=== PATIENT | male | born 1965 | race African-American/Black ===

== ENCOUNTER 2016-08-15 04:57 | Inpatient (IN) | payer OTHER ==
--- NOTE | 2016-08-15 05:13 | HP ---
CIWA Score - CIWA Score Nausea/Vomitin Muscle Tremors: 4-Moderate,w/Arms Extend Anxiety: 4-Mod. Anxious/Guarded Agitation: 4-Moderately Restless Paroxysmal Sweats: 1-Minimal Palms Moist Orientation: 0-Oriented Tacttile Disturbances: 0-None Auditory Disturbances: 0-None Visual Disturbances: 0-None Headache: 3-Moderate CIWA-Ar Total Score: 18 Admission ROS [facility] - HPI Chief Complaint: C/O WITHDRAWAL SX'S. SEEKING DETOX TXMENT. Allergies/Adverse Reactions: Allergies Allergy/AdvReac Type Severity Reaction Status Date / Time pork derived (porcine) Allergy Intermediate Itching Verified 08/15/16 05:11 No Known Drug Allergies Allergy Verified 08/02/15 09:48 PASTA Allergy Intermediate Hives Uncoded 08/15/16 05:11 red sauce Allergy Uncoded 08/15/16 05:11 History of Present Illness: 51 Y.O. MALE WITH ALCOHOLISM KNOWN TO [facility] ADMITTED FOR DETOX TXMENT. CLIENT REPORTS A CLEAN TOIME OF 8 YEARS. INTERESTED IN REHAB TXMENT POST DETOX. Exam Limitations: No Limitations - Ebola screening Have you traveled outside of the country in the last 21 days: No Have you had contact with anyone from an Ebola affected area: No Have you been sick,other than usual withdrawal symptoms: No Do you have a fever: No - Review of Systems Constitutional: Chills, Loss of Appetite, Malaise, Night Sweats, Unexplained wgt Loss EENT: reports: Dental Problems (MISSING TEETH) Respiratory: reports: No Symptoms reported Cardiac: reports: No Symptoms Reported GI: reports: Diarrhea, Nausea, Poor Appetite, Poor Fluid Intake : reports: No Symptoms Reported Musculoskeletal: reports: Joint Pain Integumentary: reports: No Symptoms Reported Neuro: reports: No Symptoms reported Hematology: reports: Other (DM) Psychiatric: reports: Anxious Other Systems: Reviewed and Negative Patient History - Patient Medical History Hx Anemia: No Hx Asthma: Yes Hx Chronic Obstructive Pulmonary Disease (COPD): No Hx Cancer: No Hx Cardiac Disorders: No Hx Congestive Heart Failure: No Hx Hypertension: Yes Hx Hypercholesterolemia: Yes Hx Pacemaker: No HX Cerebrovascular Accident: No Hx Seizures: Yes (etoh related 2012) Hx Dementia: No Hx Diabetes: Yes Hx Gastrointestinal Disorders: No Hx Liver Disease: No Hx Genitourinary Disorders: No Hx Sexually Transmitted Disorders: No Hx Renal Disease (ESRD): No Hx Thyroid Disease: No Hx Human Immunodeficiency Virus (HIV): No Hx Hepatitis C: No Hx Depression: Yes Hx Suicide Attempt: Yes (2007 - hospitalized [facility]) Hx Bipolar Disorder: No Hx Schizophrenia: Yes Other Medical History: OSTEOARTHRITIS - Patient Surgical History Past Surgical History: No Hx Neurologic Surgery: No Hx Cataract Extraction: No Hx Cardiac Surgery: No Hx Lung Surgery: No Hx Breast Surgery: No Hx Breast Biopsy: No Hx Abdominal Surgery: No Hx Appendectomy: No Hx Cholecystectomy: No Hx Genitourinary Surgery: No Hx Section: No Hx Orthopedic Surgery: No Anesthesia Reaction: No - PPD History Previous Implant?: Yes Documented Results: Negative w/proof Implanted On Prior [facility] Admission?: Yes Date: 05/29/15 Results: 0 mm PPD to be Administered?: Yes - Smoking Cessation Smoking history: Current every day smoker Have you smoked in the past 12 months: Yes Aproximately how many cigarettes per day: 10 Cigars Per Day: 0 Hx Chewing Tobacco Use: No Initiated information on smoking cessation: Yes 'Breaking Loose' booklet given: 08/15/16 - Substance & Tx. History Hx Alcohol Use: Yes Hx Substance Use: No Substance Use Type: Alcohol Hx Substance Use Treatment: Yes ([facility]) - Substances Abused BACARDI/ E&J Route: Oral Frequency: Daily Amount used: 2 PINTS/ 2 PINTS Age of first use: 11 Date of Last Use: 08/14/16 Family Disease History - Family Disease History Family Disease History: Diabetes: Father (DRUG,ALCOHOL,HTN), Mother (HEART SURGERY), Heart Disease: Father, Mother, Other: Father Admission Physical Exam [facility] - Physical General Appearance: Yes: Appropriately Dressed, Tremorous, Anxious HEENTM: Yes: EOMI, Normocephalic, BELLE, Pharynx Normal, Other (MISSING TEETH) Respiratory: Yes: Chest Non-Tender, Lungs Clear, Normal Breath Sounds, No Respiratory Distress, No Accessory Muscle Use Neck: Yes: No masses,lesions,Nodules, Supple, Trachea in good position Breast: Yes: Breast Exam Deferred Cardiology: Yes: Regular Rhythm, Regular Rate, S1, S2 Abdominal: Yes: Normal Bowel Sounds, Non Tender, Soft Genitourinary: Yes: Within Normal Limits Back: Yes: Normal Inspection Musculoskeletal: Yes: full range of Motion, Gait Steady Extremities: Yes: Normal Capillary Refill, Normal Range of Motion, Non-Tender, Tremors 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: Alert, Motor Strength 5/5 Integumentary: Yes: Normal Color, Warm, Moist Lymphatic: Yes: Within Normal Limits - Diagnostic (1) Alcohol dependence with uncomplicated withdrawal Current Visit: Yes Status: Chronic (2) Asthma Current Visit: Yes Status: Chronic Qualifiers: Asthma severity: mild intermittent Asthma complication type: uncomplicated Qualified Code(s): J45.20 - Mild intermittent asthma, uncomplicated (3) DM Diabetes mellitus type 2 Current Visit: Yes Status: Chronic (4) Essential (primary) hypertension Current Visit: Yes Status: Chronic (5) Nicotine dependence Current Visit: Yes Status: Chronic Qualifiers: Nicotine product type: cigarettes Substance use status: uncomplicated Qualified Code(s): F17.210 - Nicotine dependence, cigarettes, uncomplicated (6) OA (osteoarthritis) Current Visit: Yes Status: Chronic Qualifiers: Osteoarthritis location: spine Spinal region: lumbar Spinal osteoarthritis complication: without myelopathy or radiculopathy Qualified Code(s): M47.816 - Spondylosis without myelopathy or radiculopathy, lumbar region (7) Type 2 diabetes mellitus Current Visit: Yes Status: Chronic Qualifiers: Diabetes mellitus complication status: without complication Qualified Code(s): E11.9 - Type 2 diabetes mellitus without complications (8) HLD (hyperlipidemia) Current Visit: Yes Status: Chronic Qualifiers: Hyperlipidemia type: unspecified Qualified Code(s): E78.5 - Hyperlipidemia, unspecified Cleared for Admission [facility] - Detox or Rehab [facility] Level of Care: Medically Managed Detox Regimen/Protocol: Librium S Breath Alcohol Content Breath Alcohol Content: 0.123 Vital Signs - Vital Signs Vital Signs Refused: No Temperature: 96.4 F Temperature Source: Oral Pulse Rate: 93 Respiratory Rate: 18 Blood Pressure: 120/66 BP Location: Left Arm - Height Height: 5 ft 11 in - Weight Weight: 93.894 kg Weight Measurement Method: Standing Scale Body Mass Index (BMI): 28.8 - Bowel Function Bowel Movement: No Urine Drug Screen - Test Device Lot Number: [id number] Expiration Date: 09/17/17 - Control Is Test Valid: Yes - Results Drug Screen Negative: No Urine Drug Screen Results: BZO-Benzodiazepines (DENIES USE AND RECENT TXMENT)
[2016-08-15 05:30] VITALS: TEMP 96.4
[2016-08-15 05:32] VITALS: BMI 28.8
[2016-08-15] MEDS ORDERED: MENTHOL/PHENOL 1 EACH UD MM PRN (05:32)
[2016-08-15] MEDS ORDERED: P-EPHED 60MG/TRIPROLIDI 2.5MG TABLET PO PRN (05:32)
[2016-08-15] MEDS ORDERED: diphenhydrAMINE HCL 50 MG CAPSULE PO PRN (05:32)
[2016-08-15] MEDS ORDERED: NICOTINE POLACRILEX 2 MG GUM BC PRN (05:32)
[2016-08-15] MEDS ORDERED: hydrOXYzine PAMOATE 50 MG CAPSULE (FP) PO PRN (05:32)
[2016-08-15] MEDS ORDERED: LOPERAMIDE HCL 2 MG CAPSULE PO PRN (05:32)
[2016-08-15] MEDS ORDERED: IBUPROFEN 400 MG TABLET (FP) PO PRN (05:32)
[2016-08-15] MEDS ORDERED: MAG HYDROX/AL HYDROX/SIMETH 30 ML UNIT-DOSE CUP PO PRN (05:32)
[2016-08-15] MEDS ORDERED: MAGNESIUM CITRATE 300 ML BOTTLE PO PRN (05:32)
[2016-08-15] MEDS ORDERED: ACETAMINOPHEN 325 MG TABLET (FP) PO PRN (05:32)
[2016-08-15] MEDS ORDERED: guaiFENesin/D-METHORPHAN HB 10 ML UNIT-DOSE CUPS PO PRN (05:32)
[2016-08-15] MEDS ORDERED: MAGNESIUM HYDROX 2400MG/30ML ORAL SUSPENSION 30 ML CUP PO PRN (05:32)
[2016-08-15] MEDS ORDERED: chlordiazePOXIDE HCL 25 MG CAPSULE PO PRN (05:32)
[2016-08-15] MEDS ORDERED: ALBUTEROL SO4 6.7 GM HFA INHALER IH PRN (05:34)
[2016-08-15] MEDS ORDERED: ALBUTEROL SO4 2.5/IPRATROPIUM 0.5 INH SOL 3 ML VIAL.NEB. NEB PRN (05:36)
[2016-08-15] MEDS: chlordiazePOXIDE HCL 25 MG CAPSULE PO SCH ×2 (06:47→10:53)
[2016-08-15 07:06] VITALS: BP 130/85; PULSE 90
[2016-08-15] MEDS ORDERED: metFORMIN HCL 500 MG TABLET (FP) PO SCH (08:00)
[2016-08-15] MEDS ORDERED: NICOTINE 14 MG/24 HOURS TOPICAL PATCH TD SCH (10:00)
[2016-08-15] MEDS ORDERED: PRENATAL VITAMINS W/ FOLIC ACID TABLET (FP) PO SCH (10:00)
[2016-08-15 10:22] LABS: MCH 30.9 pg (25.7-33.7); MCHC 33.6 g/dl (32.0-35.9); MEAN CELL VOLUME 92.1 fl (80-96); MEAN PLT VOLUME 7.4 fl (7.5-11.1); PLATELET COUNT 254 K/MM3 (134-434); RDW 15.2 % (11.9-15.9); WHITE BLOOD COUNT 4.2 K/mm3 (4.0-10.0)
[2016-08-15 10:34] LABS: CALCIUM 8.8 mg/dL (8.5-10.1)
[2016-08-15 10:40] LABS: ALBUMIN 3.7 g/dl (3.4-5.0); ALK PHOS 60 U/L (45-117); ANION GAP 11 (8-16); BILIRUBIN,TOTAL 0.7 mg/dL (0.2-1.0); CO2 26 mmol/L (21-32); CREATININE 1.1 mg/dL (0.7-1.3); GLUCOSE,RANDOM 94 mg/dL (74-106); SGOT/AST 23 U/L (15-37); SGPT/ALT 31 U/L (12-78); TOT PROT 6.8 g/dl (6.4-8.2)
[2016-08-15 14:48] LABS: HIV 1 & 2 AB NEGATIVE; HIV 1 AGp24 NEGATIVE
--- NOTE | 2016-08-15 15:40 | PN ---
S CIWA - CIWA Score Nausea/Vomitin Muscle Tremors: 4-Moderate,w/Arms Extend Anxiety: 4-Mod. Anxious/Guarded Agitation: 4-Moderately Restless Paroxysmal Sweats: No Perspiration Orientation: 0-Oriented Tacttile Disturbances: 1-Very Mild Itch/Numbness Auditory Disturbances: 0-None Visual Disturbances: 0-None Headache: 2-Mild CIWA-Ar Total Score: 18 BHS Progress Note (SOAP) Subjective: Anxious, sweating, tremor, interrupted sleep, stomach ache, diarrhea, chills Objective: 08/15/16 15:38 Last Vital Signs Temp Pulse Resp BP Pulse Ox 96.4 F L 90 18 130/85 08/15/16 07:06 08/15/16 07:06 08/15/16 07:06 08/15/16 07:06 Laboratory Tests 08/15/16 08/15/16 08/15/16 05:45 08:00 08:00 WBC 4.2 D RBC 4.20 Hgb 13.0 Hct 38.6 MCV 92.1 MCHC 33.6 RDW 15.2 Plt Count 254 MPV 7.4 L D Sodium 145 Potassium 3.7 Chloride 108 H Carbon Dioxide 26 Anion Gap 11 BUN 17 Creatinine 1.1 D Creat Clearance w eGFR > 60 POC Glucometer 111 Random Glucose 94 Calcium 8.8 Total Bilirubin 0.7 D AST 23 ALT 31 Alkaline Phosphatase 60 Total Protein 6.8 Albumin 3.7 RPR Titer HIV 1&2 Antibody Screen HIV P24 Antigen 08/15/16 08/15/16 08:00 08:00 WBC RBC Hgb Hct MCV MCHC RDW Plt Count MPV Sodium Potassium Chloride Carbon Dioxide Anion Gap BUN Creatinine Creat Clearance w eGFR POC Glucometer Random Glucose Calcium Total Bilirubin AST ALT Alkaline Phosphatase Total Protein Albumin RPR Titer Nonreactive HIV 1&2 Antibody Screen Negative HIV P24 Antigen Negative Labs noted Assessment: 08/15/16 15:39 Labs noted Plan: Continue detox
[2016-08-15 17:39] LABS: URINE APPEARANCE CLEAR; URINE BILIRUBIN NEGATIVE (NEGATIVE); URINE BLOOD NEGATIVE (NEGATIVE); URINE COLOR LTYELLOW; URINE GLUCOSE (UA) NEGATIVE (NEGATIVE); URINE KETONE NEGATIVE (NEGATIVE); URINE LEUK ESTERASE NEGATIVE (NEGATIVE); URINE NITRITE NEGATIVE (NEGATIVE); URINE PROTEIN NEGATIVE (NEGATIVE); URINE UROBILINOGEN NEGATIVE E.U./dl (0.2-1.0)
--- NOTE | 2016-08-15 18:14 | EKG ---
Test Reason : Blood Pressure : / mmHG Vent. Rate : 099 BPM Atrial Rate : 099 BPM P-R Int : 152 ms QRS Dur : 090 ms QT Int : 362 ms P-R-T Axes : 058 038 043 degrees QTc Int : 464 ms NORMAL SINUS RHYTHM NORMAL ECG NO PREVIOUS ECGS AVAILABLE Confirmed by FRANCISCO GARCIA MD ([id number]) on 08/15/2016 6:13:22 PM Referred By: Confirmed By:FRANCISCO GARCIA MD
[2016-08-15] MEDS ORDERED: THIAMINE HCL 100 MG TABLET (FP) PO SCH (22:00)
[2016-08-15] MEDS ORDERED: ATORVASTATIN CA 20 MG TABLET (FP) PO SCH (22:00)
[2016-08-16] MEDS ORDERED: chlordiazePOXIDE HCL 25 MG CAPSULE PO SCH (05:00)
[2016-08-17] MEDS ORDERED: chlordiazePOXIDE 5 MG CAPSULE PO SCH (05:00)
[2016-08-18] MEDS ORDERED: chlordiazePOXIDE HCL 10 MG CAPSULE PO SCH (05:00)
== END 2016-08-15 16:48 | disposition left against medical advice (07) | DRG 770 ==
LOC: YASAS 04:57 → Y3N 05:04
PROVIDERS: ADMIT Internal Medicine; ATTEND Internal Medicine
PROC: HZ2ZZZZ Detoxification Services for Substance Abuse Treatment (ICD-10-PCS; principal; 2016-08-15)
DX: F10.230 Alcohol dependence with withdrawal, uncomplicated (principal); F17.210 Nicotine dependence, cigarettes, uncomplicated; E11.9 Type 2 diabetes mellitus without complications; Z79.84 Long term (current) use of oral hypoglycemic drugs; E78.5 Hyperlipidemia, unspecified; J45.20 Mild intermittent asthma, uncomplicated; M47.816 Spondylosis without myelopathy or radiculopathy, lumbar region
CPT/HCPCS: 36415; 80053; 81003; 85027; 86593; 87389; 93005; 93010

== ENCOUNTER 2017-02-24 15:09 | Inpatient (IN) | payer OTHER ==
[2017-02-24 17:15] VITALS: BMI 30.7
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
[2017-02-24] MEDS ORDERED: NICOTINE POLACRILEX 2 MG GUM BUC PRN (21:31)
[2017-02-24] MEDS ORDERED: MAGNESIUM HYDROX 2400MG/30ML ORAL SUSPENSION 30 ML CUP PO PRN (21:31)
[2017-02-24] MEDS ORDERED: diphenhydrAMINE HCL 50 MG CAPSULE PO PRN (21:31)
[2017-02-24] MEDS ORDERED: P-EPHED 60MG/TRIPROLIDI 2.5MG TABLET PO PRN (21:31)
[2017-02-24] MEDS ORDERED: LOPERAMIDE HCL 2 MG CAPSULE PO PRN (21:31)
[2017-02-24] MEDS ORDERED: ACETAMINOPHEN 325 MG TABLET (FP) PO PRN (21:31)
[2017-02-24] MEDS ORDERED: hydrOXYzine PAMOATE 50 MG CAPSULE (FP) PO PRN (21:31)
[2017-02-24] MEDS ORDERED: IBUPROFEN 400 MG TABLET (FP) PO PRN (21:31)
[2017-02-24] MEDS ORDERED: MENTHOL/PHENOL 1 EACH UD MM PRN (21:31)
[2017-02-24] MEDS ORDERED: MAG HYDROX/AL HYDROX/SIMETH 30 ML UNIT-DOSE CUP PO PRN (21:31)
[2017-02-24] MEDS ORDERED: guaiFENesin/D-METHORPHAN HB 10 ML UNIT-DOSE CUPS PO PRN (21:31)
[2017-02-24] MEDS ORDERED: MAGNESIUM CITRATE 300 ML BOTTLE PO PRN (21:31)
[2017-02-24] MEDS ORDERED: ALBUTEROL SO4 6.7 GM HFA INHALER IH PRN (21:33)
[2017-02-24] MEDS: THIAMINE HCL 100 MG TABLET (FP) PO SCH (23:26)
[2017-02-24] MEDS: ATORVASTATIN CA 20 MG TABLET (FP) PO SCH (23:26)
[2017-02-25] MEDS: metFORMIN HCL 500 MG TABLET (FP) PO SCH ×2 (06:22→16:46)
[2017-02-25] MEDS: INSULIN SLIDING SCALE (NOVOLOG) 1 VIAL SQ SCH ×2 (06:24→16:47)
[2017-02-25] MEDS ORDERED: INSULIN (NOVOLOG) ASPART 100 UNITS/ML 10ML VIAL ONE (06:37)
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
[2017-02-25 09:44] LABS: MCH 31.2 pg (25.7-33.7); MCHC 33.9 g/dl (32.0-35.9); MEAN CELL VOLUME 91.9 fl (80-96); MEAN PLT VOLUME 7.6 fl (7.5-11.1); PLATELET COUNT 261 K/MM3 (134-434); RDW 14.2 % (11.9-15.9); WHITE BLOOD COUNT 5.2 K/mm3 (4.0-10.0)
[2017-02-25] MEDS ORDERED: BUDESONIDE 0.5 MG/2 ML INH SUSP VIAL NEB SCH (10:00)
[2017-02-25] MEDS: LISINOPRIL 5 MG TABLET (FP) PO SCH (10:09)
[2017-02-25] MEDS: PRENATAL VITAMINS W/ FOLIC ACID TABLET (FP) PO SCH (10:09)
[2017-02-25] MEDS: ASPIRIN 81 MG CHEWABLE TABLETS PO SCH (10:09)
[2017-02-25] MEDS: NICOTINE 21 MG/24 HOURS TOPICAL PATCH TD SCH (10:15)
[2017-02-25 10:40] LABS: HIV 1 & 2 AB NEGATIVE; HIV 1 AGp24 NEGATIVE
[2017-02-25 10:58] LABS: ALBUMIN 3.5 g/dl (3.4-5.0); ALK PHOS 63 U/L (45-117); ANION GAP 11 (8-16); BILIRUBIN,TOTAL 0.3 mg/dL (0.2-1.0); CALCIUM 9.2 mg/dL (8.5-10.1); CO2 21 mmol/L (21-32); CREATININE 0.9 mg/dL (0.7-1.3); GLUCOSE,RANDOM 122 mg/dL (74-106); SGOT/AST 21 U/L (15-37); SGPT/ALT 33 U/L (12-78); TOT PROT 6.7 g/dl (6.4-8.2)
[2017-02-25] MEDS ORDERED: PNEUMOC 13-VAL CONJ-DIP CRM/PF 0.5 ML DISP.SYRIN IM ONE (12:00)
[2017-02-25] MEDS ORDERED: PNEUMOCOCCAL 23 VACCINE 0.5 ML VIAL IM ONE (12:00)
[2017-02-25] MEDS: [UNRECOGNIZED DRUG - OTHER] IH SCH (12:27)
[2017-02-25] MEDS: FLOVENT IH SCH (12:27)
[2017-02-25] MEDS: DIVALPROEX SODIUM 500 MG TABLET E.C. PO SCH ×2 (12:52→21:47)
[2017-02-25] MEDS: SERTRALINE HCL 50 MG TABLET (FP) PO SCH (14:52)
[2017-02-25 17:44] LABS: URINE APPEARANCE CLEAR; URINE BILIRUBIN NEGATIVE (NEGATIVE); URINE BLOOD NEGATIVE (NEGATIVE); URINE COLOR YELLOW; URINE GLUCOSE (UA) NEGATIVE (NEGATIVE); URINE KETONE NEGATIVE (NEGATIVE); URINE LEUK ESTERASE NEGATIVE (NEGATIVE); URINE NITRITE NEGATIVE (NEGATIVE); URINE PROTEIN NEGATIVE (NEGATIVE); URINE UROBILINOGEN NEGATIVE mg/dL (0.2-1.0)
[2017-02-25] MEDS: THIAMINE HCL 100 MG TABLET (FP) PO SCH (21:47)
[2017-02-25] MEDS: traZODone HCL 100 MG TABLET (FP) PO SCH (21:47)
[2017-02-25] MEDS: ATORVASTATIN CA 20 MG TABLET (FP) PO SCH (21:47)
[2017-02-25] MEDS: risperiDONE 1 MG TABLET (FP) PO SCH (21:48)
[2017-02-26] MEDS: INSULIN SLIDING SCALE (NOVOLOG) 1 VIAL SQ SCH ×2 (06:32→17:13)
[2017-02-26] MEDS: metFORMIN HCL 500 MG TABLET (FP) PO SCH ×2 (06:32→17:14)
--- NOTE | 2017-02-26 09:31 | EKG ---
Test Reason : Blood Pressure : / mmHG Vent. Rate : 077 BPM Atrial Rate : 077 BPM P-R Int : 176 ms QRS Dur : 086 ms QT Int : 394 ms P-R-T Axes : 073 030 043 degrees QTc Int : 445 ms NORMAL SINUS RHYTHM NORMAL ECG WHEN COMPARED WITH ECG OF 15-AUG-2016 06:52, NO SIGNIFICANT CHANGE WAS FOUND Confirmed by MD KAMI, DEBORAH ([id number]) on 02/26/2017 9:31:35 AM Referred By: Confirmed By:DEBORAH MCCLURE MD
[2017-02-26] MEDS: SERTRALINE HCL 50 MG TABLET (FP) PO SCH (09:34)
[2017-02-26] MEDS: FLOVENT IH SCH ×2 (09:34→21:10)
[2017-02-26] MEDS: DIVALPROEX SODIUM 500 MG TABLET E.C. PO SCH ×2 (09:34→21:10)
[2017-02-26] MEDS: ASPIRIN 81 MG CHEWABLE TABLETS PO SCH (09:34)
[2017-02-26] MEDS: LISINOPRIL 5 MG TABLET (FP) PO SCH (09:34)
[2017-02-26] MEDS: [UNRECOGNIZED DRUG - OTHER] IH SCH ×2 (09:34→21:10)
[2017-02-26] MEDS: NICOTINE 21 MG/24 HOURS TOPICAL PATCH TD SCH (09:35)
[2017-02-26] MEDS: PRENATAL VITAMINS W/ FOLIC ACID TABLET (FP) PO SCH (09:35)
[2017-02-26] MEDS: traZODone HCL 100 MG TABLET (FP) PO SCH (21:10)
[2017-02-26] MEDS: ATORVASTATIN CA 20 MG TABLET (FP) PO SCH (21:10)
[2017-02-26] MEDS: risperiDONE 1 MG TABLET (FP) PO SCH (21:10)
[2017-02-26] MEDS: THIAMINE HCL 100 MG TABLET (FP) PO SCH (21:10)
[2017-02-27] MEDS: metFORMIN HCL 500 MG TABLET (FP) PO SCH ×2 (06:17→16:30)
[2017-02-27] MEDS: INSULIN SLIDING SCALE (NOVOLOG) 1 VIAL SQ SCH ×2 (06:17→16:30)
[2017-02-27] MEDS: LISINOPRIL 5 MG TABLET (FP) PO SCH (09:46)
[2017-02-27] MEDS: PRENATAL VITAMINS W/ FOLIC ACID TABLET (FP) PO SCH (09:46)
[2017-02-27] MEDS: ASPIRIN 81 MG CHEWABLE TABLETS PO SCH (09:46)
[2017-02-27] MEDS: NICOTINE 21 MG/24 HOURS TOPICAL PATCH TD SCH (09:47)
[2017-02-27] MEDS: FLOVENT IH SCH ×2 (09:47→21:56)
[2017-02-27] MEDS: [UNRECOGNIZED DRUG - OTHER] IH SCH ×2 (09:47→21:56)
[2017-02-27] MEDS: SERTRALINE HCL 50 MG TABLET (FP) PO SCH (09:47)
[2017-02-27] MEDS: DIVALPROEX SODIUM 500 MG TABLET E.C. PO SCH ×2 (09:47→21:56)
[2017-02-27] MEDS: THIAMINE HCL 100 MG TABLET (FP) PO SCH (21:55)
[2017-02-27] MEDS: risperiDONE 1 MG TABLET (FP) PO SCH (21:56)
[2017-02-27] MEDS: ATORVASTATIN CA 20 MG TABLET (FP) PO SCH (21:56)
[2017-02-27] MEDS: traZODone HCL 100 MG TABLET (FP) PO SCH (21:56)
[2017-02-28] MEDS: metFORMIN HCL 500 MG TABLET (FP) PO SCH ×2 (07:27→16:47)
[2017-02-28] MEDS: INSULIN SLIDING SCALE (NOVOLOG) 1 VIAL SQ SCH ×2 (07:27→16:48)
[2017-02-28] MEDS: PRENATAL VITAMINS W/ FOLIC ACID TABLET (FP) PO SCH (09:43)
[2017-02-28] MEDS: ASPIRIN 81 MG CHEWABLE TABLETS PO SCH (09:43)
[2017-02-28] MEDS: DIVALPROEX SODIUM 500 MG TABLET E.C. PO SCH ×2 (09:43→21:02)
[2017-02-28] MEDS: LISINOPRIL 5 MG TABLET (FP) PO SCH (09:43)
[2017-02-28] MEDS: SERTRALINE HCL 50 MG TABLET (FP) PO SCH (09:43)
[2017-02-28] MEDS: [UNRECOGNIZED DRUG - OTHER] IH SCH ×2 (09:44→21:03)
[2017-02-28] MEDS: FLOVENT IH SCH ×2 (09:44→21:03)
[2017-02-28] MEDS: NICOTINE 21 MG/24 HOURS TOPICAL PATCH TD SCH (10:29)
[2017-02-28] MEDS: THIAMINE HCL 100 MG TABLET (FP) PO SCH (21:01)
[2017-02-28] MEDS: risperiDONE 1 MG TABLET (FP) PO SCH (21:01)
[2017-02-28] MEDS: traZODone HCL 100 MG TABLET (FP) PO SCH (21:02)
[2017-02-28] MEDS: ATORVASTATIN CA 20 MG TABLET (FP) PO SCH (21:02)
[2017-03-01 06:58] VITALS: BP 102/62; PULSE 90; TEMP 98.7
[2017-03-01] MEDS: INSULIN SLIDING SCALE (NOVOLOG) 1 VIAL SQ SCH (07:05)
[2017-03-01] MEDS: metFORMIN HCL 500 MG TABLET (FP) PO SCH (07:05)
[2017-03-01] MEDS: ASPIRIN 81 MG CHEWABLE TABLETS PO SCH (09:27)
[2017-03-01] MEDS: FLOVENT IH SCH (09:27)
[2017-03-01] MEDS: [UNRECOGNIZED DRUG - OTHER] IH SCH (09:27)
[2017-03-01] MEDS: LISINOPRIL 5 MG TABLET (FP) PO SCH (09:27)
[2017-03-01] MEDS: DIVALPROEX SODIUM 500 MG TABLET E.C. PO SCH (09:27)
[2017-03-01] MEDS: PRENATAL VITAMINS W/ FOLIC ACID TABLET (FP) PO SCH (09:27)
[2017-03-01] MEDS: SERTRALINE HCL 50 MG TABLET (FP) PO SCH (09:27)
[2017-03-01] MEDS: NICOTINE 21 MG/24 HOURS TOPICAL PATCH TD SCH (09:27)
--- NOTE | 2017-03-01 09:30 | PN ---
S Progress Note Note: Patient is leaving AMA. Scripts for his psychotropic medications(Zoloft, Depakote, Risperdal, Trazadone) are electronicaly transmitted to [facility] at [address] [place] [address]
== END 2017-03-01 09:45 | disposition left against medical advice (07) | DRG 770 ==
LOC: YASAS 15:09 → Y3W 21:15
PROVIDERS: ADMIT Psychiatry & Neurology Psychiatry; ATTEND Psychiatry & Neurology Psychiatry
PROC: HZ42ZZZ Group Counseling for Substance Abuse Treatment, Cognitive-Behavioral (ICD-10-PCS; principal; 2017-02-24)
DX: F10.20 Alcohol dependence, uncomplicated (principal); F14.21 Cocaine dependence, in remission; F17.210 Nicotine dependence, cigarettes, uncomplicated; F25.9 Schizoaffective disorder, unspecified; J45.909 Unspecified asthma, uncomplicated; E11.9 Type 2 diabetes mellitus without complications; I10 Essential (primary) hypertension; K21.9 Gastro-esophageal reflux disease without esophagitis; E78.5 Hyperlipidemia, unspecified; M19.90 Unspecified osteoarthritis, unspecified site; M54.5 Low back pain; E66.9 Obesity, unspecified; Z68.30 Body mass index [BMI] 30.0-30.9, adult; Z86.69 Personal history of other diseases of the nervous system and sense organs; Z91.018 Allergy to other foods; Z79.84 Long term (current) use of oral hypoglycemic drugs; Z91.5 Personal history of self-harm; Z59.0 Homelessness
CPT/HCPCS: 36415; 80053; 81003; 85027; 86593; 86803; 87389; 93005; 93010; J2794

== ENCOUNTER 2017-03-18 09:12 | Inpatient (IN) | payer OTHER ==
[2017-03-18 11:29] VITALS: BMI 29.1
--- NOTE | 2017-03-18 14:30 | HP ---
CIWA Score - CIWA Score Nausea/Vomitin-No Nausea/No Vomiting Muscle Tremors: 4-Moderate,w/Arms Extend Anxiety: 4-Mod. Anxious/Guarded Agitation: 3 Paroxysmal Sweats: 1-Minimal Palms Moist Orientation: 0-Oriented Tacttile Disturbances: 3-Moderate Itch/Numb/Burn Auditory Disturbances: 0-None Visual Disturbances: 1-Very Mild Sensitivity Headache: 1-Very Mild CIWA-Ar Total Score: 17 Admission ROS S - HPI Chief Complaint: DETOX TX FOR ALCOHOL DEPENDENCE Allergies/Adverse Reactions: Allergies Allergy/AdvReac Type Severity Reaction Status Date / Time turkey Allergy Severe Hives Verified 03/18/17 12:05 No Known Drug Allergies Allergy Verified 03/18/17 11:49 PASTA Allergy Severe Hives Uncoded 03/18/17 12:05 red sauce Allergy Severe Hives Uncoded 03/18/17 12:05 History of Present Illness: 52 Y/O AA/MALE WITH A HX OF ALCOHOL AND COCAINE DEPENDENCE SEEKING DETOX TX. PT REPORTS LONGEST PERIOD OF SOBRIETY OF EIGHT YEARS IN SEGMENTAL INTERVALS. Exam Limitations: No Limitations - Ebola screening Have you traveled outside of the country in the last 21 days: No Have you had contact with anyone from an Ebola affected area: No Have you been sick,other than usual withdrawal symptoms: No - Review of Systems Constitutional: Chills, Loss of Appetite, Night Sweats, Changes in sleep, Unintentional Wgt. Loss EENT: reports: Cataracts (BOTH EYES WITH SX IN 2016.), Eye Pain (DUE TO LIGHT SENSITIVITY), Tearing, Nose Congestion, Dental Problems (MISSING TEETH/ UPPER TEETH EXTRACTIONS WITH LAST EXTRACTION 2 WEEKS AGO.) Respiratory: reports: Cough (SOMETIMES WITH DRY COUGH), Shortness of Breath ( USES MDI), Wheezing Cardiac: reports: No Symptoms Reported GI: reports: Constipated, Poor Appetite, Poor Fluid Intake, Indigestion, Abdominal cramping : reports: No Symptoms Reported Musculoskeletal: reports: Back Pain, Joint Pain, Muscle Pain, Other (HX ARTHRITIS OF MULTIPLE JOINTS) Integumentary: reports: No Symptoms Reported Neuro: reports: Headache, Numbness, Seizure (YEARS AGO DUE TO ALCOHOL WITHDRAWALS), Tingling, Tremors, Unsteady Gait, Dizziness Endocrine: reports: No Symptoms Reported Hematology: reports: No Symptoms Reported Psychiatric: reports: Orientated x3, Anxious, Depressed (HX DEPRESSION) Other Systems: Reviewed and Negative Patient History - Patient Medical History Hx Anemia: No Hx Asthma: Yes (ON MDI) Hx Chronic Obstructive Pulmonary Disease (COPD): No Hx Cancer: No Hx Cardiac Disorders: No Hx Congestive Heart Failure: No Hx Hypertension: Yes (ON MED) Hx Hypercholesterolemia: Yes (ON MED) Hx Pacemaker: No HX Cerebrovascular Accident: No Hx Seizures: No Hx Dementia: No Hx Diabetes: Yes (ON METFORMIN 500 MG PO BID) Hx Gastrointestinal Disorders: Yes (DYSPEPSIA) Hx Liver Disease: No Hx Genitourinary Disorders: No Hx Sexually Transmitted Disorders: No (DENIES) Hx Renal Disease (ESRD): No Hx Thyroid Disease: No Hx Human Immunodeficiency Virus (HIV): No (NEGATIVE HX) Hx Hepatitis C: No Hx Depression: Yes (WAS ON MED) Hx Suicide Attempt: No (DENIES) Hx Bipolar Disorder: No Hx Schizophrenia: No - Patient Surgical History Past Surgical History: No Hx Neurologic Surgery: No Hx Cataract Extraction: No Hx Cardiac Surgery: No Hx Lung Surgery: No Hx Breast Surgery: No Hx Breast Biopsy: No Hx Abdominal Surgery: No Hx Appendectomy: No Hx Cholecystectomy: No Hx Genitourinary Surgery: No Hx Orthopedic Surgery: No Anesthesia Reaction: No - PPD History Previous Implant?: Yes Documented Results: Negative w/proof Implanted On Prior [facility] Admission?: Yes Date: 08/17/16 Results: 0 mm PPD to be Administered?: No - Reproductive History Patient is a Female of Child Bearing Age (11 -55 yrs old): No (MALE) Patient : (N/A) - Smoking Cessation Smoking history: Current every day smoker Have you smoked in the past 12 months: Yes Aproximately how many cigarettes per day: 20 Cigars Per Day: 0 Hx Chewing Tobacco Use: No Initiated information on smoking cessation: Yes 'Breaking Loose' booklet given: 03/18/17 - Substance & Tx. History Hx Alcohol Use: Yes (BEER/RUM) Hx Substance Use: Yes (CRACK) Substance Use Type: Alcohol, Cocaine Hx Substance Use Treatment: Yes (LAST TX AT [facility] DETOX 07/2016) - Substances Abused Crack Route: Smoking Frequency: 3-6 times per week Amount used: $300 Age of first use: 11 Date of Last Use: 03/16/17 Alcohol-rum/beer Route: Oral Frequency: Daily Amount used: 1 pt./1-6 pk. Age of first use: 11 Date of Last Use: 03/18/17 Family Disease History - Family Disease History Family Disease History: Diabetes: Father (DRUG,ALCOHOL,HTN), Mother (HEART SURGERY), Heart Disease: Father, Mother, Other: Father Admission Physical Exam S - Vital Signs Vital Signs: Vital Signs - 24 hr 03/18/17 11:26 Temperature 99.6 F Pulse Rate 93 H Respiratory 20 Rate Blood Pressure 130/76 - Physical General Appearance: Yes: Moderate Distress, Irritable, Anxious HEENTM: Yes: EOMI, Normocephalic, BELLE, Pharynx Normal Respiratory: Yes: Chest Non-Tender, Lungs Clear, Normal Breath Sounds, No Respiratory Distress Breast: Yes: Breast Exam Deferred Cardiology: Yes: Regular Rhythm, Regular Rate, S1, S2 Abdominal: Yes: Normal Bowel Sounds, Non Tender, Soft Genitourinary: Yes: Other (N/C) Back: Yes: Within Normal Limits Musculoskeletal: Yes: full range of Motion, Gait Steady Extremities: Yes: Normal Range of Motion, Non-Tender 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: 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, Fully Oriented, Alert Integumentary: Yes: Dry, Warm Lymphatic: Yes: Within Normal Limits - Diagnostic (1) Alcohol dependence with uncomplicated withdrawal Current Visit: Yes Status: Acute (2) Asthma Current Visit: Yes Status: Chronic Qualifiers: Asthma severity: mild intermittent Asthma complication type: uncomplicated Qualified Code(s): J45.20 - Mild intermittent asthma, uncomplicated (3) Essential (primary) hypertension Current Visit: Yes Status: Chronic (4) GERD (gastroesophageal reflux disease) Current Visit: Yes Status: Chronic Qualifiers: Esophagitis presence: esophagitis presence not specified Qualified Code(s): K21.9 - Gastro-esophageal reflux disease without esophagitis (5) HLD (hyperlipidemia) Current Visit: Yes Status: Chronic Qualifiers: Hyperlipidemia type: unspecified Qualified Code(s): E78.5 - Hyperlipidemia, unspecified (6) Low back pain Current Visit: Yes Status: Chronic (7) Nicotine dependence Current Visit: Yes Status: Acute Qualifiers: Nicotine product type: cigarettes Substance use status: in withdrawal Qualified Code(s): F17.213 - Nicotine dependence, cigarettes, with withdrawal (8) OA (osteoarthritis) Current Visit: Yes Status: Chronic Qualifiers: Osteoarthritis location: shoulder Laterality: left (9) Obesity Current Visit: Yes Status: Chronic Qualifiers: Obesity type: unspecified obesity type (10) Type 2 diabetes mellitus Current Visit: Yes Status: Chronic Qualifiers: Diabetes mellitus complication status: without complication Cleared for Admission BHS - Detox or Rehab [facility] Level of Care: Medically Managed Detox Regimen/Protocol: Librium BHS Breath Alcohol Content Breath Alcohol Content: 0.028 Urine Drug Screen - Results Drug Screen Negative: No Urine Drug Screen Results: TERI-Cocaine
[2017-03-18] MEDS ORDERED: NICOTINE POLACRILEX 4 MG GUM BUC PRN (14:53)
[2017-03-18] MEDS ORDERED: guaiFENesin/D-METHORPHAN HB 10 ML UNIT-DOSE CUPS PO PRN (14:53)
[2017-03-18] MEDS ORDERED: ACETAMINOPHEN 325 MG TABLET (FP) PO PRN (14:53)
[2017-03-18] MEDS ORDERED: MAG HYDROX/AL HYDROX/SIMETH 30 ML UNIT-DOSE CUP PO PRN (14:53)
[2017-03-18] MEDS ORDERED: hydrOXYzine PAMOATE 25 MG CAPSULE (FP) PO PRN (14:53)
[2017-03-18] MEDS ORDERED: chlordiazePOXIDE HCL 25 MG CAPSULE PO PRN (14:53)
[2017-03-18] MEDS ORDERED: MAGNESIUM HYDROX 2400MG/30ML ORAL SUSPENSION 30 ML CUP PO PRN (14:53)
[2017-03-18] MEDS ORDERED: diphenhydrAMINE HCL 50 MG CAPSULE PO PRN (14:53)
[2017-03-18] MEDS ORDERED: LOPERAMIDE HCL 2 MG CAPSULE PO PRN (14:53)
[2017-03-18] MEDS ORDERED: MAGNESIUM CITRATE 300 ML BOTTLE PO PRN (14:53)
[2017-03-18] MEDS ORDERED: MENTHOL/PHENOL 1 EACH UD MM PRN (14:53)
[2017-03-18] MEDS ORDERED: P-EPHED 60MG/TRIPROLIDI 2.5MG TABLET PO PRN (14:53)
[2017-03-18] MEDS ORDERED: IBUPROFEN 400 MG TABLET (FP) PO PRN (14:53)
[2017-03-18] MEDS ORDERED: ALBUTEROL SO4 18 GM HFA INHALER IH PRN (14:57)
[2017-03-18] MEDS ORDERED: chlordiazePOXIDE HCL 25 MG CAPSULE PO ONE (15:31)
[2017-03-18] MEDS: NICOTINE 21 MG/24 HOURS TOPICAL PATCH TD SCH (15:53)
[2017-03-18] MEDS: ASPIRIN 81 MG CHEWABLE TABLETS PO SCH (15:53)
[2017-03-18] MEDS: LISINOPRIL 5 MG TABLET (FP) PO SCH (15:57)
[2017-03-18] MEDS: metFORMIN HCL 500 MG TABLET (FP) PO SCH (17:27)
[2017-03-18] MEDS: chlordiazePOXIDE HCL 25 MG CAPSULE PO SCH ×2 (17:28→22:20)
[2017-03-18] MEDS: INSULIN SLIDING SCALE (NOVOLOG) 1 VIAL SQ SCH (17:28)
[2017-03-18] MEDS: ATORVASTATIN CA 20 MG TABLET (FP) PO SCH (22:21)
[2017-03-18] MEDS: THIAMINE HCL 100 MG TABLET (FP) PO SCH (22:21)
[2017-03-18 23:38] LABS: URINE APPEARANCE CLEAR; URINE BILIRUBIN NEGATIVE (NEGATIVE); URINE BLOOD NEGATIVE (NEGATIVE); URINE COLOR YELLOW; URINE GLUCOSE (UA) NEGATIVE (NEGATIVE); URINE KETONE NEGATIVE (NEGATIVE); URINE LEUK ESTERASE NEGATIVE (NEGATIVE); URINE NITRITE NEGATIVE (NEGATIVE); URINE PROTEIN NEGATIVE (NEGATIVE); URINE UROBILINOGEN NEGATIVE mg/dL (0.2-1.0)
[2017-03-19] MEDS: chlordiazePOXIDE HCL 25 MG CAPSULE PO SCH ×4 (05:55→23:05)
[2017-03-19] MEDS: INSULIN SLIDING SCALE (NOVOLOG) 1 VIAL SQ SCH ×2 (06:50→17:14)
[2017-03-19] MEDS: metFORMIN HCL 500 MG TABLET (FP) PO SCH ×2 (06:50→17:25)
[2017-03-19 10:35] LABS: ALBUMIN 4.1 g/dl (3.4-5.0); ALK PHOS 60 U/L (45-117); ANION GAP 9 (8-16); BILIRUBIN,TOTAL 0.7 mg/dL (0.2-1.0); CALCIUM 9.8 mg/dL (8.5-10.1); CO2 28 mmol/L (21-32); CREATININE 0.9 mg/dL (0.7-1.3); GLUCOSE,RANDOM 87 mg/dL (74-106); SGOT/AST 22 U/L (15-37); SGPT/ALT 44 U/L (12-78)
[2017-03-19] MEDS: PRENATAL VITAMINS W/ FOLIC ACID TABLET (FP) PO SCH (10:48)
[2017-03-19] MEDS: NICOTINE 21 MG/24 HOURS TOPICAL PATCH TD SCH (10:49)
[2017-03-19] MEDS: ASPIRIN 81 MG CHEWABLE TABLETS PO SCH (10:49)
[2017-03-19] MEDS: LISINOPRIL 5 MG TABLET (FP) PO SCH (10:49)
[2017-03-19] MEDS ORDERED: FLU VACCINE QUAD 60 MCG/0.5 ML (MDV 17-18) IM ONE (12:00)
[2017-03-19 12:19] LABS: HIV 1 & 2 AB NEGATIVE; HIV 1 AGp24 NEGATIVE
--- NOTE | 2017-03-19 13:08 | EKG ---
Test Reason : Blood Pressure : / mmHG Vent. Rate : 076 BPM Atrial Rate : 076 BPM P-R Int : 158 ms QRS Dur : 078 ms QT Int : 380 ms P-R-T Axes : 043 028 033 degrees QTc Int : 427 ms NORMAL SINUS RHYTHM WHEN COMPARED WITH ECG OF 25-FEB-2017 05:31, NO SIGNIFICANT CHANGE WAS FOUND Confirmed by ANT JONES MD ([id number]) on 03/19/2017 1:07:46 PM Referred By: Confirmed By:ANT JONES MD
--- NOTE | 2017-03-19 13:30 | PN ---
S CIWA - CIWA Score Nausea/Vomitin Muscle Tremors: 3 Anxiety: 3 Agitation: 2 Paroxysmal Sweats: 1-Minimal Palms Moist Orientation: 0-Oriented Tacttile Disturbances: 1-Very Mild Itch/Numbness Auditory Disturbances: 1-Very Mild Visual Disturbances: 0-None Headache: 2-Mild CIWA-Ar Total Score: 16 BHS Progress Note (SOAP) Subjective: ALERT,IRRITABLE,ANXIOUS,INTERRUPTED SLEEP,TREMOR Objective: 03/19/17 13:26 Vital Signs Temperature 98.8 F 03/19/17 10:52 Pulse Rate 91 H 03/19/17 10:52 Respiratory Rate 18 03/19/17 10:52 Blood Pressure 158/76 03/19/17 10:52 O2 Sat by Pulse Oximetry (%) EKG NORMAL SINUS RHYTHM NORMAL ECG Laboratory Last Values Sodium 140 mmol/L (136-145) 03/19/17 06:00 Potassium 4.2 mmol/L (3.5-5.1) 03/19/17 06:00 Chloride 103 mmol/L (98-107) 03/19/17 06:00 Carbon Dioxide 28 mmol/L (21-32) D 03/19/17 06:00 Anion Gap 9 (8-16) 03/19/17 06:00 BUN 17 mg/dL (7-18) 03/19/17 06:00 Creatinine 0.9 mg/dL (0.7-1.3) 03/19/17 06:00 Creat Clearance w eGFR > 60 (>60) 03/19/17 06:00 POC Glucometer 120 UNITS (()) 03/18/17 16:37 Random Glucose 87 mg/dL (74-106) D 03/19/17 06:00 Calcium 9.8 mg/dL (8.5-10.1) 03/19/17 06:00 Total Bilirubin 0.7 mg/dL (0.2-1.0) D 03/19/17 06:00 AST 22 U/L (15-37) 03/19/17 06:00 ALT 44 U/L (12-78) D 03/19/17 06:00 Alkaline Phosphatase 60 U/L (45-117) 03/19/17 06:00 Total Protein 8.0 g/dl (6.4-8.2) 03/19/17 06:00 Albumin 4.1 g/dl (3.4-5.0) 03/19/17 06:00 Urine Color Yellow 03/18/17 23:20 Urine Appearance Clear 03/18/17 23:20 Urine pH 5.0 (5.0-8.0) 03/18/17 23:20 Ur Specific [place] 1.020 (1.005-1.025) 03/18/17 23:20 Urine Protein Negative (NEGATIVE) 03/18/17 23:20 Urine Glucose (UA) Negative (NEGATIVE) 03/18/17 23:20 Urine Ketones Negative (NEGATIVE) 03/18/17 23:20 Urine Blood Negative (NEGATIVE) 03/18/17 23:20 Urine Nitrite Negative (NEGATIVE) 03/18/17 23:20 Urine Bilirubin Negative (NEGATIVE) 03/18/17 23:20 Urine Urobilinogen Negative mg/dL (0.2-1.0) 03/18/17 23:20 RPR Titer Nonreactive (NONREACTIVE) 03/19/17 06:00 HIV 1&2 Antibody Screen Negative 03/19/17 09:30 HIV P24 Antigen Negative 03/19/17 09:30 LABS PENDING Assessment: 03/19/17 13:29 WITHDRAWAL SYMPTOM Plan: CONTINUE DETOX,BGM MONITORING
[2017-03-19 20:38] LABS: MCH 31.4 pg (25.7-33.7); MCHC 33.4 g/dl (32.0-35.9); MEAN CELL VOLUME 94.1 fl (80-96); MEAN PLT VOLUME 8.4 fl (7.5-11.1); PLATELET COUNT 351 K/MM3 (134-434); RDW 14.8 % (11.9-15.9); WHITE BLOOD COUNT 5.6 K/mm3 (4.0-10.0)
--- NOTE | 2017-03-19 21:17 | CONSULT ---
[facility] Psychiatric Consult - Data Date of interview: 03/19/17 Admission source: [facility] Identifying data: Patient is approached at bedside for psychiatric interview.He refused.Staff is made aware.
[2017-03-19] MEDS: THIAMINE HCL 100 MG TABLET (FP) PO SCH (23:05)
[2017-03-19] MEDS: ATORVASTATIN CA 20 MG TABLET (FP) PO SCH (23:05)
[2017-03-20] MEDS: chlordiazePOXIDE HCL 25 MG CAPSULE PO SCH (06:15)
[2017-03-20] MEDS: INSULIN SLIDING SCALE (NOVOLOG) 1 VIAL SQ SCH (07:45)
[2017-03-20] MEDS: metFORMIN HCL 500 MG TABLET (FP) PO SCH (09:06)
[2017-03-20] MEDS: PRENATAL VITAMINS W/ FOLIC ACID TABLET (FP) PO SCH (10:34)
[2017-03-20] MEDS: LISINOPRIL 5 MG TABLET (FP) PO SCH (10:34)
[2017-03-20] MEDS: ASPIRIN 81 MG CHEWABLE TABLETS PO SCH (10:34)
--- NOTE | 2017-03-20 10:35 | PN ---
S CIWA - CIWA Score Nausea/Vomitin Muscle Tremors: 3 Anxiety: 3 Agitation: 3 Paroxysmal Sweats: No Perspiration Orientation: 0-Oriented Tacttile Disturbances: 1-Very Mild Itch/Numbness Auditory Disturbances: 1-Very Mild Visual Disturbances: 0-None Headache: 2-Mild CIWA-Ar Total Score: 16 BHS Progress Note (SOAP) Subjective: alert,irritable,anxious,interrupted sleep Objective: 03/20/17 10:34 Vital Signs Temperature 96.9 F L 03/20/17 06:40 Pulse Rate 71 03/20/17 06:40 Respiratory Rate 18 03/20/17 06:40 Blood Pressure 101/57 03/20/17 06:40 O2 Sat by Pulse Oximetry (%) Laboratory Last Values WBC 5.6 K/mm3 (4.0-10.0) 03/19/17 06:00 RBC 4.61 M/mm3 (4.00-5.60) 03/19/17 06:00 Hgb 14.5 GM/dL (11.7-16.9) D 03/19/17 06:00 Hct 43.4 % (35.4-49) D 03/19/17 06:00 MCV 94.1 fl (80-96) 03/19/17 06:00 MCH 31.4 pg (25.7-33.7) 03/19/17 06:00 MCHC 33.4 g/dl (32.0-35.9) 03/19/17 06:00 RDW 14.8 % (11.9-15.9) 03/19/17 06:00 Plt Count 351 K/MM3 (134-434) D 03/19/17 06:00 MPV 8.4 fl (7.5-11.1) D 03/19/17 06:00 Sodium 140 mmol/L (136-145) 03/19/17 06:00 Potassium 4.2 mmol/L (3.5-5.1) 03/19/17 06:00 Chloride 103 mmol/L (98-107) 03/19/17 06:00 Carbon Dioxide 28 mmol/L (21-32) D 03/19/17 06:00 Anion Gap 9 (8-16) 03/19/17 06:00 BUN 17 mg/dL (7-18) 03/19/17 06:00 Creatinine 0.9 mg/dL (0.7-1.3) 03/19/17 06:00 Creat Clearance w eGFR > 60 (>60) 03/19/17 06:00 POC Glucometer 116 UNITS (()) 03/20/17 06:17 Random Glucose 87 mg/dL (74-106) D 03/19/17 06:00 Calcium 9.8 mg/dL (8.5-10.1) 03/19/17 06:00 Total Bilirubin 0.7 mg/dL (0.2-1.0) D 03/19/17 06:00 AST 22 U/L (15-37) 03/19/17 06:00 ALT 44 U/L (12-78) D 03/19/17 06:00 Alkaline Phosphatase 60 U/L (45-117) 03/19/17 06:00 Total Protein 8.0 g/dl (6.4-8.2) 03/19/17 06:00 Albumin 4.1 g/dl (3.4-5.0) 03/19/17 06:00 Urine Color Yellow 03/18/17 23:20 Urine Appearance Clear 03/18/17 23:20 Urine pH 5.0 (5.0-8.0) 03/18/17 23:20 Ur Specific [place] 1.020 (1.005-1.025) 03/18/17 23:20 Urine Protein Negative (NEGATIVE) 03/18/17 23:20 Urine Glucose (UA) Negative (NEGATIVE) 03/18/17 23:20 Urine Ketones Negative (NEGATIVE) 03/18/17 23:20 Urine Blood Negative (NEGATIVE) 03/18/17 23:20 Urine Nitrite Negative (NEGATIVE) 03/18/17 23:20 Urine Bilirubin Negative (NEGATIVE) 03/18/17 23:20 Urine Urobilinogen Negative mg/dL (0.2-1.0) 03/18/17 23:20 RPR Titer Nonreactive (NONREACTIVE) 03/19/17 06:00 Hepatitis C Antibody <0.1 s/co ratio (0.0-0.9) 03/19/17 06:00 HIV 1&2 Antibody Screen Negative 03/19/17 09:30 HIV P24 Antigen Negative 03/19/17 09:30 Assessment: 03/20/17 10:35 withdrawal symptom Plan: continue detox
--- NOTE | 2017-03-20 10:40 | DS ---
[facility] Detox Discharge Summary Admission Date: 03/18/17 Discharge Date: 03/20/17 - History Present History: Alcohol Dependence Additional Comments: patient did not want to complete treatment due to personal problem,seen by counselor,did not want to wait, signed release ama Pertinent Past History: asthma hypertension gerd low back pain nicotine dependence obesity type 2 dm hyperlioidemia osteoarthritis - Physical Exam Results Vital Signs: Vital Signs Temperature 96.9 F L 03/20/17 06:40 Pulse Rate 71 03/20/17 06:40 Respiratory Rate 18 03/20/17 06:40 Blood Pressure 101/57 03/20/17 06:40 O2 Sat by Pulse Oximetry (%) Pertinent Admission Physical Exam Findings: withdrawal symptom - Medication Discharge Medications: Ambulatory Orders Divalproex [Depakote -] 500 mg PO BID #60 tablet.ec 12/27/13 Risperidone [Risperdal -] 1 mg PO HS #30 tablet 12/27/13 Sertraline HCl [Zoloft -] 50 mg PO DAILY 08/06/14 Albuterol Sulfate Inhaler - [Ventolin HFA Inhaler -] 2 inh PO Q4H PRN #1 inh 06/05 Aspirin [ASA -] 81 mg PO DAILY 30 Days MDD 1 03/01/17 Insulin Sliding Scale [Novolog Vial Sliding Scale -] 1 vial SQ BIDAC 30 Days 06/05 Lisinopril [Prinivil] 5 mg PO DAILY 30 Days MDD 1 03/01/17 Metformin HCl [Glucophage -] 500 mg PO BID@0700,1630 30 Days MDD 2 03/01/17 Simvastatin [Zocor -] 40 mg PO HS 30 Days 03/01/17 Trazodone HCl 100 mg PO HS #30 tablet 03/01/17 - AMA Did Patient Leave Against Medical Advice: Yes
[2017-03-20 11:43] VITALS: BP 108/68; PULSE 85; TEMP 98.4
[2017-03-20] MEDS ORDERED: chlordiazePOXIDE 5 MG CAPSULE PO SCH (17:00)
[2017-03-21] MEDS ORDERED: chlordiazePOXIDE HCL 10 MG CAPSULE PO SCH (17:00)
== END 2017-03-20 10:57 | disposition left against medical advice (07) | DRG 770 ==
LOC: YASAS 09:12 → Y6N 13:24
PROVIDERS: ADMIT Internal Medicine; ATTEND Internal Medicine
PROC: HZ2ZZZZ Detoxification Services for Substance Abuse Treatment (ICD-10-PCS; principal; 2017-03-18)
DX: F10.230 Alcohol dependence with withdrawal, uncomplicated (principal); F14.20 Cocaine dependence, uncomplicated; F17.213 Nicotine dependence, cigarettes, with withdrawal; F25.8 Other schizoaffective disorders; I10 Essential (primary) hypertension; J45.20 Mild intermittent asthma, uncomplicated; K21.9 Gastro-esophageal reflux disease without esophagitis; E78.5 Hyperlipidemia, unspecified; E11.9 Type 2 diabetes mellitus without complications; M19.012 Primary osteoarthritis, left shoulder; E66.9 Obesity, unspecified; Z68.29 Body mass index [BMI] 29.0-29.9, adult; Z91.018 Allergy to other foods; Z79.84 Long term (current) use of oral hypoglycemic drugs; Z59.0 Homelessness
CPT/HCPCS: 36415; 80053; 81003; 85027; 86593; 86803; 87389; 90688; 93005; 93010; G0008

== ENCOUNTER 2017-09-15 12:27 | Inpatient (IN) | payer OTHER ==
[2017-09-15 16:21] VITALS: BMI 29.9
[2017-09-15] MEDS ORDERED: MENTHOL/PHENOL 1 EACH UD MM PRN (17:47)
[2017-09-15] MEDS ORDERED: guaiFENesin/D-METHORPHAN HB 10 ML UNIT-DOSE CUPS PO PRN (17:47)
[2017-09-15] MEDS ORDERED: LOPERAMIDE HCL 2 MG CAPSULE PO PRN (17:47)
[2017-09-15] MEDS ORDERED: IBUPROFEN 400 MG TABLET (FP) PO PRN (17:47)
[2017-09-15] MEDS ORDERED: NICOTINE POLACRILEX 2 MG GUM BC PRN (17:47)
[2017-09-15] MEDS ORDERED: hydrOXYzine PAMOATE 50 MG CAPSULE (FP) PO PRN (17:47)
[2017-09-15] MEDS ORDERED: chlordiazePOXIDE HCL 25 MG CAPSULE PO PRN (17:47)
[2017-09-15] MEDS ORDERED: chlordiazePOXIDE HCL 25 MG CAPSULE PO ONE (17:47)
[2017-09-15] MEDS ORDERED: MAGNESIUM HYDROX 2400MG/30ML ORAL SUSPENSION 30 ML CUP PO PRN (17:47)
[2017-09-15] MEDS ORDERED: MAG HYDROX/AL HYDROX/SIMETH 30 ML UNIT-DOSE CUP PO PRN (17:47)
[2017-09-15] MEDS ORDERED: ACETAMINOPHEN 325 MG TABLET (FP) PO PRN (17:47)
[2017-09-15] MEDS ORDERED: MAGNESIUM CITRATE 300 ML BOTTLE PO PRN (17:47)
[2017-09-15] MEDS ORDERED: P-EPHED 60MG/TRIPROLIDI 2.5MG TABLET PO PRN (17:47)
--- NOTE | 2017-09-15 17:47 | HP ---
CIWA Score - CIWA Score Nausea/Vomitin Muscle Tremors: 3 Anxiety: 3 Agitation: 3 Paroxysmal Sweats: 3 Orientation: 0-Oriented Tacttile Disturbances: 0-None Auditory Disturbances: 0-None Visual Disturbances: 0-None Headache: 1-Very Mild CIWA-Ar Total Score: 16 Admission ROS S - HPI Chief Complaint: alcohol withdrawal sx Allergies/Adverse Reactions: Allergies Allergy/AdvReac Type Severity Reaction Status Date / Time turkey Allergy Severe Hives Verified 09/15/17 17:27 No Known Drug Allergies Allergy Verified 09/15/17 17:27 PASTA Allergy Severe Hives Uncoded 09/15/17 17:27 red sauce Allergy Severe Hives Uncoded 09/15/17 17:27 History of Present Illness: 52 yo m with h/o chronic alcoholism and crack cocaine and nicotien dependence requesting inpatient detoxification from alcohol becasue of withdrwal sx. denies seizurs, DTs or SI at thsi time. reports benzos in urine contaminanat of cocaine, denies recent detox, was here last year. PMHX anxiety, depression and insomnia, HTRN, DM, arthritis on meds , astham, CAD Exam Limitations: No Limitations - Ebola screening Have you traveled outside of the country in the last 21 days: No Have you had contact with anyone from an Ebola affected area: No Have you been sick,other than usual withdrawal symptoms: No - Review of Systems Constitutional: Diaphoresis, Fever, Loss of Appetite, Changes in sleep, Weakness , Unexplained wgt Loss EENT: reports: No Symptoms Reported Respiratory: reports: No Symptoms reported Cardiac: reports: No Symptoms Reported GI: reports: Nausea, Poor Appetite, Poor Fluid Intake, Indigestion, Abdominal cramping : reports: No Symptoms Reported Musculoskeletal: reports: No Symptoms Reported, Back Pain (left side), Joint Pain (left arm sjhouolder back and leg arthritis), Muscle Pain Integumentary: reports: Flushing, Sweating Neuro: reports: Headache Endocrine: reports: Increased Thirst Hematology: reports: No Symptoms Reported Psychiatric: reports: Judgement Intact, Mood/Affect Appropiate, Orientated x3, Anxious, Depressed Other Systems: Reviewed and Negative Patient History - Patient Medical History Hx Anemia: No Hx Asthma: Yes (ON MDI) Hx Chronic Obstructive Pulmonary Disease (COPD): No Hx Cancer: No Hx Cardiac Disorders: No Hx Congestive Heart Failure: No Hx Hypertension: Yes (ON MED) Hx Hypercholesterolemia: Yes (ON MED) Hx Pacemaker: No HX Cerebrovascular Accident: No Hx Seizures: No Hx Dementia: No Hx Diabetes: Yes (ON METFORMIN 500 MG PO BID) Hx Gastrointestinal Disorders: Yes (DYSPEPSIA) Hx Liver Disease: No Hx Genitourinary Disorders: No Hx Sexually Transmitted Disorders: No (DENIES) Hx Renal Disease (ESRD): No Hx Thyroid Disease: No Hx Human Immunodeficiency Virus (HIV): No (NEGATIVE HX) Hx Hepatitis C: No Hx Depression: Yes (WAS ON MED) Hx Suicide Attempt: No (DENIES) Hx Bipolar Disorder: No Hx Schizophrenia: No - Patient Surgical History Past Surgical History: No Hx Neurologic Surgery: No Hx Cataract Extraction: No Hx Cardiac Surgery: No Hx Lung Surgery: No Hx Breast Surgery: No Hx Breast Biopsy: No Hx Abdominal Surgery: No Hx Appendectomy: No Hx Cholecystectomy: No Hx Genitourinary Surgery: No Hx Section: No Hx Orthopedic Surgery: No Anesthesia Reaction: No - PPD History Documented Results: Negative w/proof Date: 08/17/16 Results: 0 mm PPD to be Administered?: Yes - Reproductive History Patient is a Female of Child Bearing Age (11 -55 yrs old): No Patient : No - Smoking Cessation Smoking history: Current every day smoker Have you smoked in the past 12 months: Yes Aproximately how many cigarettes per day: 20 Cigars Per Day: 0 Hx Chewing Tobacco Use: No Initiated information on smoking cessation: Yes 'Breaking Loose' booklet given: 09/15/17 - Substance & Tx. History Hx Alcohol Use: Yes Hx Substance Use: Yes Substance Use Type: Alcohol, Cocaine Hx Substance Use Treatment: Yes ([facility] last year) - Substances Abused Crack Route: Smoking Frequency: Daily Amount used: $80 Age of first use: 11 Date of Last Use: 09/15/17 Alcohol-vodka/beer Route: Oral Frequency: Daily Amount used: 2 pts./1-6 pk. Age of first use: 11 Date of Last Use: 09/15/17 Family Disease History - Family Disease History Family Disease History: Diabetes: Father (DRUG,ALCOHOL,HTN), Mother (HEART SURGERY), Heart Disease: Father, Mother, Other: Father Admission Physical Exam BHS - Vital Signs Vital Signs: Vital Signs - 24 hr 03/29/18 16:18 Temperature 98.3 F Pulse Rate 105 H Respiratory 18 Rate Blood Pressure 132/71 - Physical General Appearance: Yes: Nourished, Appropriately Dressed, Disheveled, Mild Distress, Cachetic, Obese, Tremorous, Irritable, Sweating HEENTM: Yes: Within Normal Limits, EOMI, Hearing grossly Normal, Normal ENT Inspection, Normocephalic, Normal Voice, BELLE, Pharynx Normal Respiratory: Yes: Within Normal Limits, Chest Non-Tender, Lungs Clear, Normal Breath Sounds, No Respiratory Distress, No Accessory Muscle Use Neck: Yes: Within Normal Limits, No masses,lesions,Nodules, Trachea in good position Breast: Yes: Breast Exam Deferred Cardiology: Yes: Within Normal Limits, Regular Rhythm, Regular Rate, S1, S2 Abdominal: Yes: Within Normal Limits, Normal Bowel Sounds, Non Tender, Flat, Soft, Protuberent, Distended Genitourinary: Yes: Within Normal Limits Back: Yes: Within Normal Limits, Normal Inspection Musculoskeletal: Yes: full range of Motion, Gait Steady, Pelvis Stable, Back pain, Muscle Pain (left side upper back) Extremities: Yes: Normal Capillary Refill, Normal Range of Motion, Non-Tender, Tremors 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, Fully Oriented, Alert, Motor Strength 5/5, Normal Mood/Affect, Normal Response, Depressed Affect Integumentary: Yes: Normal Color, Warm, Diaphoresis, Moist Lymphatic: Yes: Within Normal Limits - Addiitonal Findings: withdrawal sx - Diagnostic (1) Alcohol dependence with uncomplicated withdrawal Current Visit: No Status: Acute (2) Cocaine dependence, uncomplicated Current Visit: No Status: Acute (3) Nicotine dependence Current Visit: No Status: Acute Qualifiers: Nicotine product type: cigarettes Substance use status: in withdrawal Qualified Code(s): F17.213 - Nicotine dependence, cigarettes, with withdrawal (4) Subchronic schizoaffective disorder Current Visit: No Status: Acute (5) Asthma Current Visit: No Status: Chronic Qualifiers: Asthma severity: mild intermittent Asthma complication type: uncomplicated (6) Drug-induced mood disorder Current Visit: No Status: Chronic (7) Essential (primary) hypertension Current Visit: No Status: Chronic (8) GERD (gastroesophageal reflux disease) Current Visit: No Status: Chronic Qualifiers: Esophagitis presence: esophagitis presence not specified Qualified Code(s) : K21.9 - Gastro-esophageal reflux disease without esophagitis (9) HLD (hyperlipidemia) Current Visit: No Status: Chronic Qualifiers: Hyperlipidemia type: unspecified Qualified Code(s): E78.5 - Hyperlipidemia , unspecified (10) Low back pain Current Visit: No Status: Chronic (11) OA (osteoarthritis) Current Visit: No Status: Chronic Qualifiers: Osteoarthritis location: shoulder Laterality: left (12) Obesity Current Visit: No Status: Chronic Qualifiers: Obesity type: unspecified obesity type (13) Schizoaffective disorder Current Visit: No Status: Chronic (14) Type 2 diabetes mellitus Current Visit: No Status: Chronic Qualifiers: Diabetes mellitus complication status: without complication (15) Bipolar disorder Current Visit: No Status: Suspected Cleared for Admission S - Detox or Rehab [facility] Level of Care: Medically Managed Detox Regimen/Protocol: Librium S Breath Alcohol Content Breath Alcohol Content: 0.143 Urine Drug Screen - Results Drug Screen Negative: No Urine Drug Screen Results: TERI-Cocaine, BZO-Benzodiazepines
[2017-09-15] MEDS ORDERED: ALBUTEROL SO4 18 GM HFA INHALER IH PRN (17:49)
[2017-09-15] MEDS: PANTOPRAZOLE 40 MG TABLET (FP) PO SCH (19:26)
[2017-09-15] MEDS: ASPIRIN 81 MG CHEWABLE TABLETS PO SCH (19:26)
[2017-09-15] MEDS: NICOTINE 21 MG/24 HOURS TOPICAL PATCH TD SCH (19:31)
[2017-09-15] MEDS: LIDOCAINE 5% TOPICAL PATCH TP SCH (19:31)
[2017-09-15] MEDS ORDERED: MELATONIN 5 MG TABLETS PO PRN (22:00)
[2017-09-15] MEDS: CYCLOBENZAPRINE HCL 10 MG TABLET (FP) PO SCH (23:02)
[2017-09-15] MEDS: NAPROXEN 500 MG TABLET (FP) PO SCH (23:02)
[2017-09-15] MEDS: ATORVASTATIN CA 20 MG TABLET (FP) PO SCH (23:02)
[2017-09-15] MEDS: LIDOCAINE PATCH REMOVAL MC SCH (23:02)
[2017-09-15] MEDS: GABAPENTIN 100 MG CAPSULE (FP) PO SCH (23:03)
[2017-09-15] MEDS: chlordiazePOXIDE HCL 25 MG CAPSULE PO SCH (23:03)
[2017-09-15] MEDS: THIAMINE HCL 100 MG TABLET (FP) PO SCH (23:03)
[2017-09-16 01:41] LABS: URINE APPEARANCE CLEAR; URINE BILIRUBIN NEGATIVE (<2.0 mg/dL); URINE BLOOD NEGATIVE (NEGATIVE); URINE COLOR YELLOW; URINE GLUCOSE (UA) NEGATIVE (NEGATIVE); URINE KETONE NEGATIVE (NEGATIVE); URINE LEUK ESTERASE NEGATIVE (NEGATIVE); URINE NITRITE NEGATIVE (NEGATIVE); URINE PROTEIN NEGATIVE (NEGATIVE); URINE UROBILINOGEN NEGATIVE mg/dL (0.2-1.0)
[2017-09-16] MEDS: chlordiazePOXIDE HCL 25 MG CAPSULE PO SCH ×4 (05:56→22:29)
[2017-09-16] MEDS: GABAPENTIN 100 MG CAPSULE (FP) PO SCH ×3 (05:56→22:29)
[2017-09-16] MEDS: CYCLOBENZAPRINE HCL 10 MG TABLET (FP) PO SCH ×3 (05:56→22:29)
[2017-09-16] MEDS: metFORMIN HCL 500 MG TABLET (FP) PO SCH ×2 (06:31→18:22)
--- NOTE | 2017-09-16 10:08 | EKG ---
Test Reason : Blood Pressure : / mmHG Vent. Rate : 091 BPM Atrial Rate : 091 BPM P-R Int : 158 ms QRS Dur : 082 ms QT Int : 350 ms P-R-T Axes : 054 032 034 degrees QTc Int : 430 ms NORMAL SINUS RHYTHM NORMAL ECG WHEN COMPARED WITH ECG OF 18-MAR-2017 15:02, NO SIGNIFICANT CHANGE WAS FOUND Confirmed by ANT JONES MD ([id number]) on 09/16/2017 10:07:54 AM Referred By: Confirmed By:ANT JONES MD
[2017-09-16 10:22] LABS: ALBUMIN 3.5 g/dl (3.4-5.0); ANION GAP 10 (8-16); BILIRUBIN,TOTAL 0.4 mg/dL (0.2-1.0); BLOOD UREA NITROGEN 14 mg/dL (7-18); CALCIUM 8.6 mg/dL (8.5-10.1); CHLORIDE 108 mmol/L (98-107); CO2 25 mmol/L (21-32); CREATININE 0.9 mg/dL (0.7-1.3); GLUCOSE,RANDOM 103 mg/dL (74-106); POTASSIUM 3.8 mmol/L (3.5-5.1); SGOT/AST 20 U/L (15-37); SGPT/ALT 32 U/L (12-78); SODIUM 143 mmol/L (136-145); TOT PROT 6.6 g/dl (6.4-8.2)
[2017-09-16 10:23] LABS: ALK PHOS 53 U/L (45-117)
[2017-09-16] MEDS: NICOTINE 21 MG/24 HOURS TOPICAL PATCH TD SCH (10:28)
[2017-09-16] MEDS: LIDOCAINE 5% TOPICAL PATCH TP SCH (10:28)
[2017-09-16] MEDS: PANTOPRAZOLE 40 MG TABLET (FP) PO SCH (10:28)
[2017-09-16] MEDS: NAPROXEN 500 MG TABLET (FP) PO SCH ×2 (10:28→22:29)
[2017-09-16] MEDS: ASPIRIN 81 MG CHEWABLE TABLETS PO SCH (10:28)
[2017-09-16] MEDS: PRENATAL VITAMINS W/ FOLIC ACID TABLET (FP) PO SCH (10:28)
[2017-09-16 10:32] LABS: HEMATOCRIT 36.8 % (35.4-49); HEMOGLOBIN 12.4 GM/dL (11.7-16.9); MCH 30.6 pg (25.7-33.7); MCHC 33.5 g/dl (32.0-35.9); MEAN CELL VOLUME 91.2 fl (80-96); MEAN PLT VOLUME 7.6 fl (7.5-11.1); PLATELET COUNT 257 K/MM3 (134-434); RBC 4.04 M/mm3 (4.00-5.60); RDW 15.7 % (11.9-15.9); WHITE BLOOD COUNT 3.3 K/mm3 (4.0-10.0)
--- NOTE | 2017-09-16 10:51 | PN ---
[facility] CIWA - CIWA Score Nausea/Vomitin-No Nausea/No Vomiting Muscle Tremors: 3 Anxiety: 4-Mod. Anxious/Guarded Agitation: 3 Paroxysmal Sweats: 1-Minimal Palms Moist Orientation: 0-Oriented Tacttile Disturbances: 3-Moderate Itch/Numb/Burn Auditory Disturbances: 0-None Visual Disturbances: 0-None Headache: 0-None Present CIWA-Ar Total Score: 14 BHS Progress Note (SOAP) Subjective: ANXIETY,SLIGHT TREMORS,SWEATS,INTERMITTENT SLEEP,FATIGUE. Objective: 09/16/17 10:50 Vital Signs Temperature 95.3 F L 09/16/17 09:13 Pulse Rate 93 H 09/16/17 09:13 Respiratory Rate 16 09/16/17 09:13 Blood Pressure 145/89 09/16/17 09:13 O2 Sat by Pulse Oximetry (%) Laboratory Last Values WBC 3.3 K/mm3 (4.0-10.0) L D 09/16/17 08:00 RBC 4.04 M/mm3 (4.00-5.60) 09/16/17 08:00 Hgb 12.4 GM/dL (11.7-16.9) D 09/16/17 08:00 Hct 36.8 % (35.4-49) D 09/16/17 08:00 MCV 91.2 fl (80-96) 09/16/17 08:00 MCH 30.6 pg (25.7-33.7) 09/16/17 08:00 MCHC 33.5 g/dl (32.0-35.9) 09/16/17 08:00 RDW 15.7 % (11.9-15.9) 09/16/17 08:00 Plt Count 257 K/MM3 (134-434) D 09/16/17 08:00 MPV 7.6 fl (7.5-11.1) 09/16/17 08:00 Sodium 143 mmol/L (136-145) 09/16/17 08:00 Potassium 3.8 mmol/L (3.5-5.1) 09/16/17 08:00 Chloride 108 mmol/L (98-107) H 09/16/17 08:00 Carbon Dioxide 25 mmol/L (21-32) 09/16/17 08:00 Anion Gap 10 (8-16) 09/16/17 08:00 BUN 14 mg/dL (7-18) 09/16/17 08:00 Creatinine 0.9 mg/dL (0.7-1.3) 09/16/17 08:00 Creat Clearance w eGFR > 60 (>60) 09/16/17 08:00 POC Glucometer 111 UNITS (80-120) 09/16/17 05:55 Random Glucose 103 mg/dL (74-106) 09/16/17 08:00 Calcium 8.6 mg/dL (8.5-10.1) 09/16/17 08:00 Total Bilirubin 0.4 mg/dL (0.2-1.0) D 09/16/17 08:00 AST 20 U/L (15-37) 09/16/17 08:00 ALT 32 U/L (12-78) D 09/16/17 08:00 Alkaline Phosphatase 53 U/L (45-117) 09/16/17 08:00 Total Protein 6.6 g/dl (6.4-8.2) 09/16/17 08:00 Albumin 3.5 g/dl (3.4-5.0) 09/16/17 08:00 Urine Color Yellow 09/16/17 00:05 Urine Appearance Clear 09/16/17 00:05 Urine pH 5.0 (5.0-8.0) 09/16/17 00:05 Ur Specific [place] 1.019 (1.001-1.035) 09/16/17 00:05 Urine Protein Negative (NEGATIVE) 09/16/17 00:05 Urine Glucose (UA) Negative (NEGATIVE) 09/16/17 00:05 Urine Ketones Negative (NEGATIVE) 09/16/17 00:05 Urine Blood Negative (NEGATIVE) 09/16/17 00:05 Urine Nitrite Negative (NEGATIVE) 09/16/17 00:05 Urine Bilirubin Negative (<2.0 mg/dL) 09/16/17 00:05 Urine Urobilinogen Negative mg/dL (0.2-1.0) 09/16/17 00:05 Ur Leukocyte Esterase Negative (NEGATIVE) 09/16/17 00:05 Assessment: 09/16/17 10:50 WITHDRAWAL SX Plan: CONTINUE DETOX
[2017-09-16] MEDS: LISINOPRIL 5 MG TABLET (FP) PO SCH (11:07)
--- NOTE | 2017-09-16 11:11 | CONSULT ---
[facility] Psychiatric Consult - Data Date of interview: 09/16/17 Admission source: [facility] Identifying data: Readmission to [facility] for this 52 y/o AA male seeking detox treatment on for alcohol and cocaine (crack) dependence.Patient is single,a father of three,homeless,unemployed and reportedly deprived of income. Substance Abuse History: Discussed in this session.Mr Jimenez confirms current use of alcohol and crack. Details in current [facility] report as follows : Smoking history: Current every day smoker. Have you smoked in the past 12 months: Yes. Aproximately how many cigarettes per day: 20. Cigars Per Day: 0. Hx Chewing Tobacco Use: No. Initiated information on smoking cessation: Yes. 'Breaking Loose' booklet given: 09/15/17. - Substance & Tx. History. Hx Alcohol Use: Yes. Hx Substance Use: Yes. Substance Use Type: Alcohol, Cocaine. Hx Substance Use Treatment: Yes ([facility] last year). - Substances Abused. Crack. Route: Smoking. Frequency: Daily. Amount used: $80. Age of first use : 11. Date of Last Use: 09/15/17. Alcohol-vodka/beer. Route: Oral. Frequency: Daily. Amount used: 2 pts./1-6 pk. Age of first use: 11. Date of Last Use: 09/15/17 Medical History: Diabetes mellitus,dyslipidemia,hypertension,osteoarthritis, chronic lumbar pain,bronchial asthma,coronary artery disease,hypertension and dyspepsia. Psychiatric History: Patient denies history of psychiatric hospitalizations.diagnosed with MDD and prescribed zoloft 25 mg/day.Admits to chronic non-adherence to medications.No history of formal psychiatric OPD care.Mr Jimenez denies history of suicide attempts. Physical/Sexual Abuse/Trauma History: Patient denies. Additional Comment: Urine Drug Screen Results: TERI-Cocaine, BZO- Benzodiazepines.Noted. Mental Status Exam - Mental Status Exam Alert and Oriented to: Time, Place, Person Cognitive Function: Good Patient Appearance: Unkempt, Disheveled Mood: Angry, Withdrawn, Irritable Affect: Mood Congruent Patient Behavior: Uncooperative Speech Pattern: Clear, Inappropriate Voice Loudness: Normal Thought Process: Goal Oriented Thought Disorder: Not Present Hallucinations: Denies Suicidal Ideation: Denies Homicidal Ideation: Denies Insight/Judgement: Poor Sleep: Well Appetite: Good Gait/Station: Other (observed ambulating prior to the examination) Psychiatric Findings - Problem List (Olin 1, 2,3) (1) Alcohol dependence with uncomplicated withdrawal Current Visit: Yes Status: Acute (2) Cocaine dependence, uncomplicated Current Visit: Yes Status: Acute (3) Nicotine dependence Current Visit: Yes Status: Acute Qualifiers: Nicotine product type: cigarettes Substance use status: in withdrawal Qualified Code(s): F17.213 - Nicotine dependence, cigarettes, with withdrawal (4) Drug-induced mood disorder Current Visit: Yes Status: Chronic - Initial Treatment Plan Initial Treatment Plan: Psychoeducation.Records revisited.Detoxification in progress.NO clinical justification for antidepressant medication at this time.Observation.
[2017-09-16] MEDS: ATORVASTATIN CA 20 MG TABLET (FP) PO SCH (22:29)
[2017-09-16] MEDS: THIAMINE HCL 100 MG TABLET (FP) PO SCH (22:29)
[2017-09-16] MEDS: LIDOCAINE PATCH REMOVAL MC SCH (22:31)
[2017-09-17 06:11] VITALS: PULSE 69
[2017-09-17] MEDS: chlordiazePOXIDE HCL 25 MG CAPSULE PO SCH ×2 (06:11→10:15)
[2017-09-17] MEDS: GABAPENTIN 100 MG CAPSULE (FP) PO SCH (07:39)
[2017-09-17] MEDS: CYCLOBENZAPRINE HCL 10 MG TABLET (FP) PO SCH (07:39)
[2017-09-17] MEDS: metFORMIN HCL 500 MG TABLET (FP) PO SCH (08:21)
[2017-09-17] MEDS: NAPROXEN 500 MG TABLET (FP) PO SCH (10:15)
[2017-09-17] MEDS: LIDOCAINE 5% TOPICAL PATCH TP SCH (10:15)
[2017-09-17] MEDS: PRENATAL VITAMINS W/ FOLIC ACID TABLET (FP) PO SCH (10:15)
[2017-09-17] MEDS: LISINOPRIL 5 MG TABLET (FP) PO SCH (10:15)
[2017-09-17] MEDS: PANTOPRAZOLE 40 MG TABLET (FP) PO SCH (10:15)
[2017-09-17] MEDS: ASPIRIN 81 MG CHEWABLE TABLETS PO SCH (10:15)
[2017-09-17 11:17] VITALS: BP 106/70; TEMP 97.8
--- NOTE | 2017-09-17 14:08 | PN ---
[facility] CIWA - CIWA Score Nausea/Vomitin-No Nausea/No Vomiting Muscle Tremors: 2 Anxiety: 4-Mod. Anxious/Guarded Agitation: 4-Moderately Restless Paroxysmal Sweats: 3 Orientation: 0-Oriented Tacttile Disturbances: 2-Mild Itch/Numbness/Burn Auditory Disturbances: 0-None Visual Disturbances: 0-None Headache: 0-None Present CIWA-Ar Total Score: 15 BHS Progress Note (SOAP) Subjective: Sweating, Tremors, Anxious, Interrupted Sleep. Objective: PATIENT A & O X 3, OBSERVED AMBULATING ON UNIT. NO ACUTE DISTRESS. 09/17/17 14:07 Vital Signs Temperature 97.8 F 09/17/17 11:15 Pulse Rate 69 09/17/17 11:15 Respiratory Rate 18 09/17/17 11:15 Blood Pressure 106/70 09/17/17 11:15 O2 Sat by Pulse Oximetry (%) Laboratory Tests 09/15/17 09/16/17 09/16/17 17:44 00:05 05:55 WBC RBC Hgb Hct MCV MCH MCHC RDW Plt Count MPV Sodium Potassium Chloride Carbon Dioxide Anion Gap BUN Creatinine Creat Clearance w eGFR POC Glucometer 156 111 Random Glucose Calcium Total Bilirubin AST ALT Alkaline Phosphatase Total Protein Albumin Urine Color Yellow Urine Appearance Clear Urine pH 5.0 Ur Specific [place] 1.019 Urine Protein Negative Urine Glucose (UA) Negative Urine Ketones Negative Urine Blood Negative Urine Nitrite Negative Urine Bilirubin Negative Urine Urobilinogen Negative Ur Leukocyte Esterase Negative RPR Titer 09/16/17 09/16/17 09/16/17 08:00 08:00 08:00 WBC 3.3 L D RBC 4.04 Hgb 12.4 D Hct 36.8 D MCV 91.2 MCH 30.6 MCHC 33.5 RDW 15.7 Plt Count 257 D MPV 7.6 Sodium 143 Potassium 3.8 Chloride 108 H Carbon Dioxide 25 Anion Gap 10 BUN 14 Creatinine 0.9 Creat Clearance w eGFR > 60 POC Glucometer Random Glucose 103 Calcium 8.6 Total Bilirubin 0.4 D AST 20 ALT 32 D Alkaline Phosphatase 53 Total Protein 6.6 Albumin 3.5 Urine Color Urine Appearance Urine pH Ur Specific [place] Urine Protein Urine Glucose (UA) Urine Ketones Urine Blood Urine Nitrite Urine Bilirubin Urine Urobilinogen Ur Leukocyte Esterase RPR Titer Nonreactive 09/16/17 16:45 WBC RBC Hgb Hct MCV MCH MCHC RDW Plt Count MPV Sodium Potassium Chloride Carbon Dioxide Anion Gap BUN Creatinine Creat Clearance w eGFR POC Glucometer 95 Random Glucose Calcium Total Bilirubin AST ALT Alkaline Phosphatase Total Protein Albumin Urine Color Urine Appearance Urine pH Ur Specific [place] Urine Protein Urine Glucose (UA) Urine Ketones Urine Blood Urine Nitrite Urine Bilirubin Urine Urobilinogen Ur Leukocyte Esterase RPR Titer LABS NOTED. Assessment: 09/17/17 14:07 WITHDRAWAL SYMPTOMS. Plan: CONTINUE DETOX.
--- NOTE | 2017-09-17 14:13 | DS ---
[facility] Detox Discharge Summary Admission Date: 09/15/17 Discharge Date: 09/17/17 - History Present History: Alcohol Dependence, Cocaine Dependence Additional Comments: PATIENT DOES NOT WISH TO STAY TO COMPLETE DETOX REGIMEN. RISKS OF LEAVING DETOX UNIT AGAINST MEDICAL ADVICE AND PRIOR TO COMPLETION OF DETOX REGIMEN EXPLAINED TO PATIENT. PATIENT ADVISED TO GO IMMEDIATELY TO NEAREST ER SHOULD ANY INTOLERABLE DETOX SYMPTOMS DEVELOP AT ANY TIME. PATIENT LEFT DETOX UNIT IN STABLE MEDICAL CONDITION. Pertinent Past History: Hyperlipidemia, HTN, Type II DM, Schizoaffective Disorder, Asthma, Low Back Pain , GERD, Nicotine Dependence, Osteoarthritis, Bipolar Disorder. - Physical Exam Results Vital Signs: Vital Signs Temperature 97.8 F 09/17/17 11:15 Pulse Rate 69 09/17/17 11:15 Respiratory Rate 18 09/17/17 11:15 Blood Pressure 106/70 09/17/17 11:15 O2 Sat by Pulse Oximetry (%) Pertinent Admission Physical Exam Findings: WITHDRAWAL SYMPTOMS. Laboratory Tests 09/15/17 09/16/17 09/16/17 17:44 00:05 05:55 WBC RBC Hgb Hct MCV MCH MCHC RDW Plt Count MPV Sodium Potassium Chloride Carbon Dioxide Anion Gap BUN Creatinine Creat Clearance w eGFR POC Glucometer 156 111 Random Glucose Calcium Total Bilirubin AST ALT Alkaline Phosphatase Total Protein Albumin Urine Color Yellow Urine Appearance Clear Urine pH 5.0 Ur Specific [place] 1.019 Urine Protein Negative Urine Glucose (UA) Negative Urine Ketones Negative Urine Blood Negative Urine Nitrite Negative Urine Bilirubin Negative Urine Urobilinogen Negative Ur Leukocyte Esterase Negative RPR Titer 09/16/17 09/16/17 09/16/17 08:00 08:00 08:00 WBC 3.3 L D RBC 4.04 Hgb 12.4 D Hct 36.8 D MCV 91.2 MCH 30.6 MCHC 33.5 RDW 15.7 Plt Count 257 D MPV 7.6 Sodium 143 Potassium 3.8 Chloride 108 H Carbon Dioxide 25 Anion Gap 10 BUN 14 Creatinine 0.9 Creat Clearance w eGFR > 60 POC Glucometer Random Glucose 103 Calcium 8.6 Total Bilirubin 0.4 D AST 20 ALT 32 D Alkaline Phosphatase 53 Total Protein 6.6 Albumin 3.5 Urine Color Urine Appearance Urine pH Ur Specific [place] Urine Protein Urine Glucose (UA) Urine Ketones Urine Blood Urine Nitrite Urine Bilirubin Urine Urobilinogen Ur Leukocyte Esterase RPR Titer Nonreactive 03/30/18 16:45 WBC RBC Hgb Hct MCV MCH MCHC RDW Plt Count MPV Sodium Potassium Chloride Carbon Dioxide Anion Gap BUN Creatinine Creat Clearance w eGFR POC Glucometer 95 Random Glucose Calcium Total Bilirubin AST ALT Alkaline Phosphatase Total Protein Albumin Urine Color Urine Appearance Urine pH Ur Specific [place] Urine Protein Urine Glucose (UA) Urine Ketones Urine Blood Urine Nitrite Urine Bilirubin Urine Urobilinogen Ur Leukocyte Esterase RPR Titer LABS NOTED. - Treatment Hospital Course: Detoxed Safely - Medication Discharge Medications: Ambulatory Orders Risperidone [Risperdal -] 1 mg PO HS #30 tablet 12/27/13 Sertraline HCl [Zoloft -] 25 mg PO DAILY 08/06/14 Trazodone HCl 100 mg PO HS #30 tablet 03/01/17 Aspirin [ASA -] 81 mg PO DAILY #30 tab.chew MDD 1 03/20/17 Atorvastatin Ca [Lipitor] 20 mg PO HS #30 tablet 03/20/17 Lisinopril [Prinivil] 5 mg PO DAILY #30 tablet MDD 1 03/20/17 metFORMIN HCL [Glucophage -] 500 mg PO BID@0700,1630 #60 tablet MDD 2 03/20/17 Albuterol Sulfate Inhaler - [Ventolin Hfa Inhaler -] 2 inh PO Q4H PRN 09/15/17 - Diagnosis (1) Alcohol dependence with uncomplicated withdrawal Status: Acute (2) Cocaine dependence, uncomplicated Status: Acute (3) Nicotine dependence Status: Acute Qualifiers: Nicotine product type: cigarettes Substance use status: in withdrawal Qualified Code(s): F17.213 - Nicotine dependence, cigarettes, with withdrawal (4) Subchronic schizoaffective disorder Status: Acute (5) Asthma Status: Chronic Qualifiers: Asthma severity: mild Asthma persistence: intermittent Asthma complication type: uncomplicated Qualified Code(s): J45.20 - Mild intermittent asthma, uncomplicated (6) Drug-induced mood disorder Status: Chronic (7) Essential (primary) hypertension Status: Chronic (8) GERD (gastroesophageal reflux disease) Status: Chronic Qualifiers: Esophagitis presence: esophagitis presence not specified Qualified Code(s) : K21.9 - Gastro-esophageal reflux disease without esophagitis (9) HLD (hyperlipidemia) Status: Chronic Qualifiers: Hyperlipidemia type: unspecified Qualified Code(s): E78.5 - Hyperlipidemia , unspecified (10) Low back pain Status: Chronic (11) OA (osteoarthritis) Status: Chronic Qualifiers: Osteoarthritis location: shoulder Osteoarthritis type: unspecified Laterality: left Qualified Code(s): M19.012 - Primary osteoarthritis, left shoulder (12) Obesity Status: Chronic Qualifiers: Obesity type: unspecified obesity type (13) Schizoaffective disorder Status: Chronic Qualifiers: Schizoaffective disorder type: unspecified Qualified Code(s): F25.9 - Schizoaffective disorder, unspecified (14) Type 2 diabetes mellitus Status: Chronic Qualifiers: Diabetes mellitus termite exterminator insulin use: without termite exterminator use Diabetes mellitus complication status: without complication Qualified Code(s): E11.9 - Type 2 diabetes mellitus without complications (15) Bipolar disorder Status: Suspected Qualifiers: Active/Remission status: remission status unspecified Qualified Code(s): F31.9 - Bipolar disorder, unspecified - AMA Did Patient Leave Against Medical Advice: Yes (PATIENT DOES NOT WISH TO STAY TO COMPLETE DETOX REGIMEN.)
[2017-09-17] MEDS ORDERED: chlordiazePOXIDE 5 MG CAPSULE PO SCH (23:00)
[2017-09-18] MEDS ORDERED: chlordiazePOXIDE HCL 10 MG CAPSULE PO SCH (23:00)
== END 2017-09-17 11:21 | disposition left against medical advice (07) | DRG 770 ==
LOC: YASAS 12:27 → Y3N 18:01
PROVIDERS: ADMIT Internal Medicine; ATTEND Internal Medicine
PROC: HZ2ZZZZ Detoxification Services for Substance Abuse Treatment (ICD-10-PCS; principal; 2017-09-15)
DX: F10.230 Alcohol dependence with withdrawal, uncomplicated (principal); F14.20 Cocaine dependence, uncomplicated; F17.210 Nicotine dependence, cigarettes, uncomplicated; F31.9 Bipolar disorder, unspecified; F25.9 Schizoaffective disorder, unspecified; F19.24 Other psychoactive substance dependence with psychoactive substance-induced mood disorder; I10 Essential (primary) hypertension; E11.9 Type 2 diabetes mellitus without complications; Z79.84 Long term (current) use of oral hypoglycemic drugs; M54.5 Low back pain; J45.909 Unspecified asthma, uncomplicated; M19.012 Primary osteoarthritis, left shoulder; E66.09 Other obesity due to excess calories; Z68.30 Body mass index [BMI] 30.0-30.9, adult; Z59.0 Homelessness
CPT/HCPCS: 36415; 80053; 81003; 82962; 85027; 86593; 93005; 93010

== ENCOUNTER 2018-06-01 09:27 | Inpatient (IN) | payer OTHER ==
[2018-06-01 09:49] VITALS: BMI 32.4
--- NOTE | 2018-06-01 14:01 | HP ---
CIWA Score Nausea/Vomitin Muscle Tremors: 2 Anxiety: 2 Agitation: 2 Paroxysmal Sweats: 1-Minimal Palms Moist Orientation: 0-Oriented Tacttile Disturbances: 1-Very Mild Itch/Numbness Auditory Disturbances: 1-Very Mild Visual Disturbances: 0-None Headache: 2-Mild CIWA-Ar Total Score: 13 - Admission Criteria OASAS Guidelines: Admission for Medically Managed Detox: Requires at least one of the followin. CIWA greater than 12 2. Seizures within the past 24 hours 3. Delirium tremens within the past 24 hours 4. Hallucinations within the past 24 hours 5. Acute intervention needed for co occurring medical disorder 6. Acute intervention needed for co occurring psychiatric disorder 7. Severe withdrawal that cannot be handled at a lower level of care (continued vomiting, continued diarrhea, abnormal vital signs) requiring intravenous medication and/or fluids 8. Patient presents the following: CIWA greater than 12 Admission Criteria Met: Admission criteria met Admission ROS S - [facility] Chief Complaint: i need help to stop drinking alcohol and cocaine dependence Allergies/Adverse Reactions: Allergies Allergy/AdvReac Type Severity Reaction Status Date / Time turkey Allergy Severe Hives Verified 06/01/18 12:37 No Known Drug Allergies Allergy Verified 12/25/17 18:14 PASTA Allergy Severe Hives Uncoded 06/01/18 12:37 red sauce Allergy Severe Hives Uncoded 06/01/18 12:37 History of Present Illness: this 53 years old male with alcohol and cocaine dependence,seeking detox, withdrawal symptom, last detox 12/25/17 to 12/28/17 multiple admissions in the past but non compliance,previous history of ama , seen by counselor and addressing issue of ama history of htn,type 2 dm nicotine dependence longest period of sobriety 8 years Exam Limitations: No Limitations - Ebola screening Have you traveled outside of the country in the last 21 days: No Have you had contact with anyone from an Ebola affected area: No Have you been sick,other than usual withdrawal symptoms: No - Review of Systems Constitutional: Loss of Appetite, Malaise, Night Sweats, Changes in sleep, Weakness EENT: reports: Nose Congestion Respiratory: reports: No Symptoms reported Cardiac: reports: Palpitations GI: reports: Diarrhea, Nausea, Vomiting, Abdominal cramping : reports: No Symptoms Reported Musculoskeletal: reports: Back Pain, Muscle Pain Neuro: reports: Headache, Tremors Endocrine: reports: No Symptoms Reported Hematology: reports: No Symptoms Reported Psychiatric: reports: No Sypmtoms Reported, Judgement Intact, Mood/Affect Appropiate, Orientated x3 Other Systems: Reviewed and Negative Patient History - Patient Medical History Hx Anemia: No Hx Asthma: Yes Hx Chronic Obstructive Pulmonary Disease (COPD): No Hx Cancer: No Hx Cardiac Disorders: No Hx Congestive Heart Failure: No Hx Hypertension: Yes (on med) Hx Hypercholesterolemia: Yes (ON MED) Hx Pacemaker: No HX Cerebrovascular Accident: No Hx Seizures: No Hx Dementia: No Hx Diabetes: Yes (NIDDM) Hx Gastrointestinal Disorders: No Hx Liver Disease: No Hx Genitourinary Disorders: No Hx Sexually Transmitted Disorders: No Hx Renal Disease (ESRD): No Hx Thyroid Disease: No Hx Human Immunodeficiency Virus (HIV): No (NEGATIVE HX in 2017 last) Hx Hepatitis C: No Hx Depression: Yes Hx Suicide Attempt: No Hx Bipolar Disorder: No Hx Schizophrenia: Yes (schizoaffective disorder) Other Medical History: no sucidal,no homicidal - Patient Surgical History Past Surgical History: No Hx Neurologic Surgery: No Hx Cataract Extraction: No Hx Cardiac Surgery: No Hx Lung Surgery: No Hx Breast Surgery: No Hx Breast Biopsy: No Hx Abdominal Surgery: No Hx Appendectomy: No Hx Cholecystectomy: No Hx Genitourinary Surgery: No Hx Section: No Hx Orthopedic Surgery: No Anesthesia Reaction: No - PPD History Previous Implant?: Yes Documented Results: Negative w/proof Implanted On Prior [facility] Admission?: Yes Date: 12/01/17 Results: negative PPD to be Administered?: No - Smoking Cessation Smoking history: Smoker current status UNK Have you smoked in the past 12 months: No Aproximately how many cigarettes per day: 5 Cigars Per Day: 0 Hx Chewing Tobacco Use: No Initiated information on smoking cessation: Yes 'Breaking Loose' booklet given: 06/01/18 - Substance & Tx. History Hx Alcohol Use: Yes Hx Substance Use: Yes Substance Use Type: Alcohol, Cocaine Hx Substance Use Treatment: Yes ([facility] 12/25/17 to 12/28/17) - Substances Abused Alcohol-vodka Route: Oral Frequency: Daily Amount used: 2 pts./1-6 pk. (beer0 Age of first use: 11 Date of Last Use: 06/01/18 Cocaine Route: Smoking Frequency: 1-3 times last 30 days Amount used: 40$ Age of first use: 11 Date of Last Use: 05/31/18 Family Disease History - Family Disease History Family Disease History: Diabetes: Father (DRUG,ALCOHOL,HTN), Mother (HEART SURGERY,), Heart Disease: Father, Mother, Other: Father Admission Physical Exam S - Vital Signs Vital Signs: Vital Signs - 24 hr 06/01/18 09:48 Temperature 99 F Pulse Rate 111 H Respiratory 18 Rate Blood Pressure 138/91 - Physical General Appearance: Yes: Moderate Distress, Tremorous, Irritable, Sweating, Anxious HEENTM: Yes: Normal ENT Inspection, BELLE, Pharynx Normal Respiratory: Yes: Lungs Clear, Normal Breath Sounds, No Respiratory Distress Neck: Yes: Within Normal Limits, Supple, Trachea in good position Breast: Yes: Within Normal Limits Cardiology: Yes: Within Normal Limits, Regular Rhythm, Regular Rate, S1, S2 Abdominal: Yes: Within Normal Limits, Normal Bowel Sounds, Non Tender, Flat, Soft Genitourinary: Yes: Within Normal Limits Back: Yes: Muscle Spasm Musculoskeletal: Yes: Back pain, Muscle Pain Extremities: Yes: Within Normal Limits, Normal Range of Motion, Tremors 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: lime filter operator II-XII NML intact, Fully Oriented, Alert, Motor Strength 5/5 Integumentary: Yes: Dry - Diagnostic (1) Alcohol dependence with uncomplicated withdrawal Status: Acute (2) Insomnia Status: Acute Qualifiers: Insomnia type: unspecified Qualified Code(s): G47.00 - Insomnia, unspecified (3) Asthma Status: Chronic Qualifiers: Asthma severity: mild Asthma persistence: intermittent Asthma complication type: uncomplicated Qualified Code(s): J45.20 - Mild intermittent asthma, uncomplicated (4) Nicotine dependence Status: Chronic Qualifiers: Nicotine product type: cigarettes Substance use status: in withdrawal Qualified Code(s): F17.213 - Nicotine dependence, cigarettes, with withdrawal (5) Obesity Status: Chronic Qualifiers: Obesity type: unspecified obesity type (6) Schizoaffective disorder Status: Chronic Qualifiers: Schizoaffective disorder type: unspecified Qualified Code(s): F25.9 - Schizoaffective disorder, unspecified (7) Type 2 diabetes mellitus Status: Chronic Qualifiers: Diabetes mellitus long term care administrator insulin use: without long term care administrator use Diabetes mellitus complication status: without complication Qualified Code(s): E11.9 - Type 2 diabetes mellitus without complications (8) Cocaine abuse Status: Chronic Cleared for Admission [facility] - Detox or Rehab [facility] Level of Care: Medically Managed Detox Regimen/Protocol: Librium [facility] Breath Alcohol Content Breath Alcohol Content: 0 Urine Drug Screen - Results Drug Screen Negative: No Urine Drug Screen Results: TERI-Cocaine, BZO-Benzodiazepines
[2018-06-01] MEDS ORDERED: IBUPROFEN 400 MG TABLET (FP) PO PRN (14:11)
[2018-06-01] MEDS ORDERED: P-EPHED 60MG/TRIPROLIDI 2.5MG TABLET PO PRN (14:11)
[2018-06-01] MEDS ORDERED: ACETAMINOPHEN 325 MG TABLET (FP) PO PRN (14:11)
[2018-06-01] MEDS ORDERED: chlordiazePOXIDE HCL 25 MG CAPSULE PO PRN (14:11)
[2018-06-01] MEDS ORDERED: LOPERAMIDE HCL 2 MG CAPSULE PO PRN (14:11)
[2018-06-01] MEDS ORDERED: guaiFENesin/D-METHORPHAN HB 10 ML UNIT-DOSE CUPS PO PRN (14:11)
[2018-06-01] MEDS ORDERED: MAGNESIUM HYDROX 2400MG/30ML ORAL SUSPENSION 30 ML CUP PO PRN (14:11)
[2018-06-01] MEDS ORDERED: hydrOXYzine PAMOATE 50 MG CAPSULE (FP) PO PRN (14:11)
[2018-06-01] MEDS ORDERED: MAGNESIUM CITRATE 300 ML BOTTLE PO PRN (14:11)
[2018-06-01] MEDS ORDERED: MAG HYDROX/AL HYDROX/SIMETH 30 ML UNIT-DOSE CUP PO PRN (14:11)
[2018-06-01] MEDS ORDERED: MENTHOL/PHENOL 1 EACH UD MM PRN (14:11)
[2018-06-01] MEDS ORDERED: ALBUTEROL SO4 8 GM HFA INHALER IH PRN (14:15)
--- NOTE | 2018-06-01 15:04 | CONSULT ---
[facility] Psychiatric Consult - Data Date of interview: 06/01/18 Admission source: [facility] Identifying data: This is 53 years old male, father of three, domiciled , on SSI,PA support, with history of Schizosffective disorder, history of psychiatric hospitalization, with multiple medical issues, reports alcohol and cocaine dependence,reports withdrawal symptoms and seeking detox, Substance Abuse History: Smoking history: Smoker current status UNK. Have you smoked in the past 12 months: No. Aproximately how many cigarettes per day: 5. Cigars Per Day: 0. Hx Chewing Tobacco Use: No. Initiated information on smoking cessation: Yes. 'Breaking Loose' booklet given: 06/01/18. - Substance & Tx. History. Hx Alcohol Use: Yes. Hx Substance Use: Yes. Substance Use Type : Alcohol, Cocaine. Hx Substance Use Treatment: Yes ([facility] 12/25/17 to 12/28/17) . - Substances Abused. Alcohol-vodka. Route: Oral. Frequency: Daily. Amount used: 2 pts./1-6 pk. (beer0. Age of first use: 11. Date of Last Use: . Cocaine. Route: Smoking. Frequency: 1-3 times last 30 days. Amount used: 40$. Age of first use: 11. Date of Last Use: 05/31/18 Medical History: Asthma, Obesity, DM-II, Seizure history, HTN, GERD, Hypelipidemia, Osteoarthritis Psychiatric History: Patient reports history of depression and anxiety, reports unclear suicidal attempt long time agop when he was only psychiatrically hospitalizae, reports all of it happened on more then 10-15 years ago, reports no suicidal or homicidal history since then. Patient currently on: Zoloft 25mg poqd. Trazodone 150mg po qhs Physical/Sexual Abuse/Trauma History: Denies Additional Comment: Zoloft 25mg poqd. Trazodone 150mg po qhs Mental Status Exam - Mental Status Exam Additional Comments: Zoloft 25mg poqd. Trazodone 150mg po qhs Psychiatric Findings - Problem List ([place] 1, 2,3) (1) Cocaine abuse Current Visit: Yes Status: Acute (2) Alcohol dependence with uncomplicated withdrawal Current Visit: No Status: Acute (3) Anxiety and depression Current Visit: No Status: Acute (4) Subchronic schizoaffective disorder Current Visit: No Status: Acute (5) Alcohol related seizure Current Visit: No Status: Chronic (6) Cocaine dependence, uncomplicated Current Visit: No Status: Chronic (7) Drug-induced mood disorder Current Visit: No Status: Chronic (8) Asthma Current Visit: No Status: Chronic Qualifiers: Asthma severity: mild Asthma persistence: intermittent Asthma complication type: uncomplicated Qualified Code(s): J45.20 - Mild intermittent asthma, uncomplicated (9) Essential (primary) hypertension Current Visit: No Status: Chronic (10) GERD (gastroesophageal reflux disease) Current Visit: No Status: Chronic Qualifiers: Esophagitis presence: esophagitis presence not specified Qualified Code(s) : K21.9 - Gastro-esophageal reflux disease without esophagitis (11) HLD (hyperlipidemia) Current Visit: No Status: Chronic Qualifiers: Hyperlipidemia type: unspecified Qualified Code(s): E78.5 - Hyperlipidemia , unspecified (12) Low back pain Current Visit: No Status: Chronic (13) OA (osteoarthritis) Current Visit: No Status: Chronic Qualifiers: Osteoarthritis location: shoulder Osteoarthritis type: unspecified Laterality: left Qualified Code(s): M19.012 - Primary osteoarthritis, left shoulder (14) Obesity Current Visit: No Status: Chronic Qualifiers: Obesity type: unspecified obesity type (15) Schizoaffective disorder Current Visit: No Status: Chronic Qualifiers: Schizoaffective disorder type: unspecified Qualified Code(s): F25.9 - Schizoaffective disorder, unspecified (16) Type 2 diabetes mellitus Current Visit: No Status: Chronic Qualifiers: Diabetes mellitus extermination supervisor insulin use: without fpc use Diabetes mellitus complication status: without complication Qualified Code(s): E11.9 - Type 2 diabetes mellitus without complications - Initial Treatment Plan Initial Treatment Plan: Zoloft 25mg poqd. Trazodone 150mg po qhs
[2018-06-01] MEDS: chlordiazePOXIDE HCL 25 MG CAPSULE PO SCH ×2 (17:44→23:03)
[2018-06-01] MEDS: metFORMIN HCL 500 MG TABLET (FP) PO SCH (17:44)
[2018-06-01] MEDS ORDERED: MELATONIN 5 MG TABLETS PO PRN (22:00)
[2018-06-01] MEDS: ATORVASTATIN CA 20 MG TABLET (FP) PO SCH (23:03)
[2018-06-01] MEDS: traZODone HCL 50 MG TABLET (FP) PO SCH (23:03)
[2018-06-01] MEDS: THIAMINE HCL 100 MG TABLET (FP) PO SCH (23:04)
[2018-06-02] MEDS: chlordiazePOXIDE HCL 25 MG CAPSULE PO SCH ×4 (06:02→22:20)
[2018-06-02] MEDS: metFORMIN HCL 500 MG TABLET (FP) PO SCH ×2 (07:24→17:22)
[2018-06-02 10:34] LABS: HEMATOCRIT 40.6 % (35.4-49); MCH 29.6 pg (25.7-33.7); MEAN CELL VOLUME 92.5 fl (80-96); MEAN PLT VOLUME 9.5 fl (7.5-11.1); PLATELET COUNT 296 K/MM3 (134-434); RBC 4.39 M/mm3 (4.00-5.60); RDW 15.4 % (11.9-15.9); WHITE BLOOD COUNT 4.9 K/mm3 (4.0-10.0)
[2018-06-02 11:15] LABS: ALBUMIN 4.3 g/dl (3.4-5.0); ALK PHOS 64 U/L (45-117); ANION GAP 8 MMOL/L (8-16); BILIRUBIN,TOTAL 0.5 mg/dL (0.2-1); BLOOD UREA NITROGEN 27 mg/dL (7-18); CALCIUM 9.1 mg/dL (8.5-10.1); CHLORIDE 104 mmol/L (98-107); CO2 25 mmol/L (21-32); CREATININE 1.2 mg/dL (0.55-1.3); GLUCOSE,RANDOM 103 mg/dL (74-106); POTASSIUM 4.3 mmol/L (3.5-5.1); SGOT/AST 24 U/L (15-37); SGPT/ALT 38 U/L (13-61); SODIUM 137 mmol/L (136-145); TOT PROT 7.6 g/dl (6.4-8.2)
[2018-06-02] MEDS: LISINOPRIL 10 MG TABLET (FP) PO SCH (12:04)
[2018-06-02] MEDS: SERTRALINE HCL 25 MG TABLET (FP) PO SCH (12:04)
[2018-06-02] MEDS: ASPIRIN 81 MG CHEWABLE TABLETS PO SCH (12:04)
[2018-06-02] MEDS: PRENATAL VITAMINS W/ FOLIC ACID TABLET (FP) PO SCH (12:04)
--- NOTE | 2018-06-02 14:56 | PN ---
S CIWA - CIWA Score Nausea/Vomitin-No Nausea/No Vomiting Muscle Tremors: None Anxiety: 5 Agitation: 5 Paroxysmal Sweats: No Perspiration Orientation: 0-Oriented Tacttile Disturbances: 0-None Auditory Disturbances: 0-None Visual Disturbances: 0-None Headache: 0-None Present CIWA-Ar Total Score: 10 BHS Progress Note (SOAP) Subjective: PATIENT IRRITABLE, ANXIOUS. DID NOT WANT TO SPEAK TO TEAM COORDINATOR. C/O INTERRUPTED SLEEP. Objective: 06/02/18 14:54 Vital Signs Temperature 96.7 F L 06/02/18 09:31 Pulse Rate 84 06/02/18 13:08 Respiratory Rate 18 06/02/18 13:08 Blood Pressure 106/73 06/02/18 13:08 O2 Sat by Pulse Oximetry (%) Laboratory Tests 06/01/18 06/01/18 06/02/18 13:21 16:38 05:45 WBC 4.9 RBC 4.39 Hgb 13.0 Hct 40.6 MCV 92.5 MCH 29.6 MCHC 32.0 RDW 15.4 Plt Count 296 D MPV 9.5 D Sodium Potassium Chloride Carbon Dioxide Anion Gap BUN Creatinine Creat Clearance w eGFR POC Glucometer 127 247 Random Glucose Calcium Total Bilirubin AST ALT Alkaline Phosphatase Total Protein Albumin RPR Titer 06/02/18 06/02/18 06/02/18 05:45 05:45 06:47 WBC RBC Hgb Hct MCV MCH MCHC RDW Plt Count MPV Sodium 137 Potassium 4.3 Chloride 104 Carbon Dioxide 25 Anion Gap 8 BUN 27 H Creatinine 1.2 Creat Clearance w eGFR > 60 POC Glucometer 150 Random Glucose 103 Calcium 9.1 Total Bilirubin 0.5 AST 24 ALT 38 Alkaline Phosphatase 64 Total Protein 7.6 Albumin 4.3 RPR Titer Nonreactive PE: AGITATED AND IRRITABLE Assessment: 06/02/18 14:55 WITHDRAWAL SX Plan: CONTINUE DETOX CONTINUE TO MONITOR CLINICALLY
[2018-06-02] MEDS: THIAMINE HCL 100 MG TABLET (FP) PO SCH (22:20)
[2018-06-02] MEDS: ATORVASTATIN CA 20 MG TABLET (FP) PO SCH (22:20)
[2018-06-02] MEDS: traZODone HCL 50 MG TABLET (FP) PO SCH (22:20)
[2018-06-03] MEDS: metFORMIN HCL 500 MG TABLET (FP) PO SCH ×2 (06:01→17:36)
[2018-06-03] MEDS: chlordiazePOXIDE HCL 25 MG CAPSULE PO SCH ×2 (06:01→10:22)
[2018-06-03] MEDS: SERTRALINE HCL 25 MG TABLET (FP) PO SCH (10:22)
[2018-06-03] MEDS: PRENATAL VITAMINS W/ FOLIC ACID TABLET (FP) PO SCH (10:22)
[2018-06-03] MEDS: ASPIRIN 81 MG CHEWABLE TABLETS PO SCH (10:22)
[2018-06-03] MEDS: LISINOPRIL 10 MG TABLET (FP) PO SCH (10:22)
--- NOTE | 2018-06-03 12:30 | PN ---
S CIWA - CIWA Score Nausea/Vomitin Muscle Tremors: 2 Anxiety: 2 Agitation: 2 Paroxysmal Sweats: 2 Orientation: 0-Oriented Tacttile Disturbances: 1-Very Mild Itch/Numbness Auditory Disturbances: 1-Very Mild Visual Disturbances: 0-None Headache: 0-None Present CIWA-Ar Total Score: 12 S Progress Note (SOAP) Subjective: Leg pain, shakes and sweats Objective: 06/03/18 12:29 Vital Signs Temperature 97.5 F L 06/03/18 10:40 Pulse Rate 72 06/03/18 10:40 Respiratory Rate 18 06/03/18 10:40 Blood Pressure 94/58 L 06/03/18 10:40 O2 Sat by Pulse Oximetry (%) Laboratory Last Values WBC 4.9 K/mm3 (4.0-10.0) 06/02/18 05:45 RBC 4.39 M/mm3 (4.00-5.60) 06/02/18 05:45 Hgb 13.0 GM/dL (11.7-16.9) 06/02/18 05:45 Hct 40.6 % (35.4-49) 06/02/18 05:45 MCV 92.5 fl (80-96) 06/02/18 05:45 MCH 29.6 pg (25.7-33.7) 06/02/18 05:45 MCHC 32.0 g/dl (32.0-35.9) 06/02/18 05:45 RDW 15.4 % (11.9-15.9) 06/02/18 05:45 Plt Count 296 K/MM3 (134-434) D 06/02/18 05:45 MPV 9.5 fl (7.5-11.1) D 06/02/18 05:45 Sodium 137 mmol/L (136-145) 06/02/18 05:45 Potassium 4.3 mmol/L (3.5-5.1) 06/02/18 05:45 Chloride 104 mmol/L (98-107) 06/02/18 05:45 Carbon Dioxide 25 mmol/L (21-32) 06/02/18 05:45 Anion Gap 8 MMOL/L (8-16) 06/02/18 05:45 BUN 27 mg/dL (7-18) H 06/02/18 05:45 Creatinine 1.2 mg/dL (0.55-1.3) 06/02/18 05:45 Creat Clearance w eGFR > 60 (>60) 06/02/18 05:45 POC Glucometer 118 UNITS (80-120) 06/03/18 05:59 Random Glucose 103 mg/dL (74-106) 06/02/18 05:45 Calcium 9.1 mg/dL (8.5-10.1) 06/02/18 05:45 Total Bilirubin 0.5 mg/dL (0.2-1) 06/02/18 05:45 AST 24 U/L (15-37) 06/02/18 05:45 ALT 38 U/L (13-61) 06/02/18 05:45 Alkaline Phosphatase 64 U/L (45-117) 06/02/18 05:45 Total Protein 7.6 g/dl (6.4-8.2) 06/02/18 05:45 Albumin 4.3 g/dl (3.4-5.0) 06/02/18 05:45 RPR Titer Nonreactive (NONREACTIVE) 06/02/18 05:45 Labs noted Assessment: 06/03/18 12:29 Withdrawal sx Plan: Continue detox
[2018-06-03] MEDS: chlordiazePOXIDE 5 MG CAPSULE PO SCH ×2 (17:37→23:21)
[2018-06-03] MEDS: ATORVASTATIN CA 20 MG TABLET (FP) PO SCH (23:20)
[2018-06-03] MEDS: THIAMINE HCL 100 MG TABLET (FP) PO SCH (23:20)
[2018-06-03] MEDS: traZODone HCL 50 MG TABLET (FP) PO SCH (23:20)
[2018-06-04] MEDS: chlordiazePOXIDE 5 MG CAPSULE PO SCH (05:36)
[2018-06-04] MEDS: metFORMIN HCL 500 MG TABLET (FP) PO SCH (06:54)
[2018-06-04 09:59] VITALS: BP 119/86; PULSE 86; TEMP 97.3
--- NOTE | 2018-06-04 13:09 | DS ---
[facility] Detox Discharge Summary Admission Date: 06/01/18 Discharge Date: 06/04/18 - History Present History: Alcohol Dependence, Cocaine Dependence Additional Comments: Patient decided to leave AMA despite encouragement from staff and counselor to stay. As per patient, he can leave whenever he wants to and is not staying until tomorrow. As per patient, he wants to visit his family to discuss his plan for rehab then plans to go to rehab tomorrow. Patient is A, A, Ox3, in nad , ambulatory. Patient is agitated and doesn't want to speak with anyone anymore and demanding to leave G[facility]. Patient stated, "they only wants me to stay here so that they can take my money." Patient instructed to call 911 GORGE if feeling sick or any withdrawal symptoms and to see his PCP within 3 days. Pertinent Past History: Asthma Alcohol dependence Obesity SAD DMT2 with hyperglycemia Cocaine dependence HLD HTN - Physical Exam Results Vital Signs: Vital Signs Temperature 97.3 F L 06/04/18 09:58 Pulse Rate 86 06/04/18 09:58 Respiratory Rate 18 06/04/18 09:58 Blood Pressure 119/86 06/04/18 09:58 O2 Sat by Pulse Oximetry (%) Pertinent Admission Physical Exam Findings: Withdrawal symptoms Laboratory Tests 06/01/18 06/01/18 06/02/18 13:21 16:38 05:45 WBC 4.9 RBC 4.39 Hgb 13.0 Hct 40.6 MCV 92.5 MCH 29.6 MCHC 32.0 RDW 15.4 Plt Count 296 D MPV 9.5 D Sodium Potassium Chloride Carbon Dioxide Anion Gap BUN Creatinine Creat Clearance w eGFR POC Glucometer 127 247 Random Glucose Calcium Total Bilirubin AST ALT Alkaline Phosphatase Total Protein Albumin RPR Titer 06/02/18 06/02/18 06/02/18 05:45 05:45 06:47 WBC RBC Hgb Hct MCV MCH MCHC RDW Plt Count MPV Sodium 137 Potassium 4.3 Chloride 104 Carbon Dioxide 25 Anion Gap 8 BUN 27 H Creatinine 1.2 Creat Clearance w eGFR > 60 POC Glucometer 150 Random Glucose 103 Calcium 9.1 Total Bilirubin 0.5 AST 24 ALT 38 Alkaline Phosphatase 64 Total Protein 7.6 Albumin 4.3 RPR Titer Nonreactive 12/14/18 12/15/18 12/15/18 16:16 05:59 16:47 WBC RBC Hgb Hct MCV MCH MCHC RDW Plt Count MPV Sodium Potassium Chloride Carbon Dioxide Anion Gap BUN Creatinine Creat Clearance w eGFR POC Glucometer 126 118 146 Random Glucose Calcium Total Bilirubin AST ALT Alkaline Phosphatase Total Protein Albumin RPR Titer 06/04/18 05:35 WBC RBC Hgb Hct MCV MCH MCHC RDW Plt Count MPV Sodium Potassium Chloride Carbon Dioxide Anion Gap BUN Creatinine Creat Clearance w eGFR POC Glucometer 114 Random Glucose Calcium Total Bilirubin AST ALT Alkaline Phosphatase Total Protein Albumin RPR Titer Labs reviewed: bun 27, elevated glucose due to DMT2. Encouraged to drink more water for hydration. - Medication Discharge Medications: Ambulatory Orders Sertraline HCl [Zoloft -] 25 mg PO DAILY 08/06/14 Aspirin [ASA -] 81 mg PO DAILY #30 tab.chew MDD 1 03/20/17 Atorvastatin Ca [Lipitor] 20 mg PO HS #30 tablet 03/20/17 metFORMIN HCL [Glucophage -] 500 mg PO BID@0700,1630 #60 tablet MDD 2 03/20/17 Albuterol Sulfate Inhaler - [Ventolin Hfa Inhaler -] 2 inh PO Q4H PRN 09/15/17 Folic Acid - 1 mg PO DAILY 06/01/18 Lisinopril [Prinivil] 10 mg PO DAILY 06/01/18 Metronidazole 500 mg PO TID 06/01/18 Naproxen [Naprosyn -] 500 mg PO BID PRN 06/01/18 Polyvinyl Alcohol [Artificial Tears] 2 drop OP BID 06/01/18 Sertraline HCl [Zoloft -] 25 mg PO DAILY #30 tablet 06/01/18 traZODone HCL [Desyrel -] 150 mg PO HS #30 tablet 06/01/18 - Diagnosis (1) Type 2 diabetes mellitus with hyperglycemia Status: Chronic (2) HTN (hypertension), benign Status: Chronic (3) Alcohol dependence with uncomplicated withdrawal Status: Acute (4) Cocaine abuse Status: Chronic (5) Asthma Status: Chronic Qualifiers: Asthma severity: mild Asthma persistence: intermittent Asthma complication type: uncomplicated Qualified Code(s): J45.20 - Mild intermittent asthma, uncomplicated (6) Obesity Status: Chronic Qualifiers: Obesity type: unspecified obesity type (7) Schizoaffective disorder Status: Chronic Qualifiers: Schizoaffective disorder type: unspecified Qualified Code(s): F25.9 - Schizoaffective disorder, unspecified (8) Azotemia Status: Acute - AMA Did Patient Leave Against Medical Advice: Yes (Instructed to call 911 GORGE if feeling sick or withdrawal symptoms)
[2018-06-04] MEDS ORDERED: chlordiazePOXIDE HCL 10 MG CAPSULE PO SCH (17:00)
== END 2018-06-04 10:07 | disposition left against medical advice (07) | DRG 770 ==
LOC: YASAS 09:27 → Y3N 14:19
PROC: HZ2ZZZZ Detoxification Services for Substance Abuse Treatment (ICD-10-PCS; principal; 2018-06-01)
DX: F10.230 Alcohol dependence with withdrawal, uncomplicated (principal); F14.10 Cocaine abuse, uncomplicated; F20.89 Other schizophrenia; F25.9 Schizoaffective disorder, unspecified; F41.8 Other specified anxiety disorders; F19.24 Other psychoactive substance dependence with psychoactive substance-induced mood disorder; K21.9 Gastro-esophageal reflux disease without esophagitis; E11.65 Type 2 diabetes mellitus with hyperglycemia; I10 Essential (primary) hypertension; J45.20 Mild intermittent asthma, uncomplicated; R79.89 Other specified abnormal findings of blood chemistry; M19.012 Primary osteoarthritis, left shoulder; E78.2 Mixed hyperlipidemia; G47.00 Insomnia, unspecified; M54.5 Low back pain; G89.29 Other chronic pain; E66.9 Obesity, unspecified; Z68.32 Body mass index [BMI] 32.0-32.9, adult; Z86.69 Personal history of other diseases of the nervous system and sense organs; Z59.0 Homelessness
CPT/HCPCS: 36415; 80053; 82962; 85027; 86593

== ENCOUNTER 2018-07-28 13:55 | Inpatient (IN) | payer OTHER ==
[2018-07-28 15:15] VITALS: BMI 29.7
--- NOTE | 2018-07-28 15:38 | HP ---
CIWA Score Nausea/Vomitin Muscle Tremors: 4-Moderate,w/Arms Extend Anxiety: 0-No Anxiety, at Ease Agitation: 3 Paroxysmal Sweats: 3 Orientation: 1-Uncertain about Date Tacttile Disturbances: 0-None Auditory Disturbances: 0-None Visual Disturbances: 2-Mild Sensitivity Headache: 3-Moderate CIWA-Ar Total Score: 18 - Admission Criteria [facility]ASAS Guidelines: Admission for Medically Managed Detox: Requires at least one of the followin. CIWA greater than 12 2. Seizures within the past 24 hours 3. Delirium tremens within the past 24 hours 4. Hallucinations within the past 24 hours 5. Acute intervention needed for co occurring medical disorder 6. Acute intervention needed for co occurring psychiatric disorder 7. Severe withdrawal that cannot be handled at a lower level of care (continued vomiting, continued diarrhea, abnormal vital signs) requiring intravenous medication and/or fluids 8. Admission ROS [facility] - HPI Allergies/Adverse Reactions: Allergies Allergy/AdvReac Type Severity Reaction Status Date / Time turkey Allergy Severe Hives Verified 06/01/18 12:37 No Known Drug Allergies Allergy Verified 12/25/17 18:14 PASTA Allergy Severe Hives Uncoded 06/01/18 12:37 red sauce Allergy Severe Hives Uncoded 06/01/18 12:37 History of Present Illness: patient here requesting detox from etoh use , reports 2 pints/day , latest use this morning, reports symptoms as above , + withdrawal seizures , + blackouts , tremors , + falls while intoxicated ,most recently last month denies injuries . cocaine : denies regular use benzo : denies tobacco : / ppd PMhx : htn , DM , OA , HLD , asthma ( since childhood , NH/ [place] ) PSHx denies PSych : depression denies SI /HI meds - latest taken 1 yr ago . SHx : homeless , unemployed Exam Limitations: Clinical Condition - Ebola screening Have you traveled outside of the country in the last 21 days: No Have you had contact with anyone from an Ebola affected area: No Have you been sick,other than usual withdrawal symptoms: No Do you have a fever: No - Review of Systems Constitutional: See HPI EENT: reports: Other (glasses , missing teeth reports illiteracy) Respiratory: reports: No Symptoms reported Cardiac: reports: No Symptoms Reported GI: reports: No Symptoms Reported : reports: No Symptoms Reported Musculoskeletal: reports: Joint Pain (right knee since 1 yr ago) Integumentary: reports: No Symptoms Reported Neuro: reports: See HPI Endocrine: reports: See HPI Psychiatric: reports: Orientated x3, Agitated, Anxious Patient History - Patient Medical History Hx Anemia: No Hx Asthma: Yes Hx Chronic Obstructive Pulmonary Disease (COPD): No Hx Cancer: No Hx Cardiac Disorders: No Hx Congestive Heart Failure: No Hx Hypertension: Yes (on med) Hx Hypercholesterolemia: Yes (ON MED) Hx Pacemaker: No HX Cerebrovascular Accident: No Hx Seizures: No Hx Dementia: No Hx Diabetes: Yes (NIDDM) Hx Gastrointestinal Disorders: No Hx Liver Disease: No Hx Genitourinary Disorders: No Hx Sexually Transmitted Disorders: No Hx Renal Disease (ESRD): No Hx Thyroid Disease: No Hx Human Immunodeficiency Virus (HIV): No (NEGATIVE HX in 2017 last) Hx Hepatitis C: No Hx Depression: Yes Hx Suicide Attempt: No Hx Bipolar Disorder: No Hx Schizophrenia: Yes (schizoaffective disorder) - Patient Surgical History Past Surgical History: No Hx Neurologic Surgery: No Hx Cataract Extraction: No Hx Cardiac Surgery: No Hx Lung Surgery: No Hx Breast Surgery: No Hx Breast Biopsy: No Hx Abdominal Surgery: No Hx Appendectomy: No Hx Cholecystectomy: No Hx Genitourinary Surgery: No Hx Section: No Hx Orthopedic Surgery: No Anesthesia Reaction: No - PPD History Date: 12/01/17 Results: negative - Smoking Cessation Smoking history: Smoker current status UNK Have you smoked in the past 12 months: No Aproximately how many cigarettes per day: 5 Cigars Per Day: 0 Hx Chewing Tobacco Use: No Family Disease History - Family Disease History Family Disease History: Diabetes: Father (DRUG,ALCOHOL,HTN), Mother (HEART SURGERY,), Heart Disease: Father, Mother, Other: Father Admission Physical Exam BHS - Vital Signs Vital Signs: Vital Signs - 24 hr 07/28/18 15:13 Temperature 97.8 F Pulse Rate 96 H Respiratory 18 Rate Blood Pressure 131/78 - Physical General Appearance: Yes: Disheveled, Moderate Distress HEENTM: Yes: EOMI, Hearing grossly Normal, Normocephalic, Normal Voice Respiratory: Yes: Chest Non-Tender, Lungs Clear, Normal Breath Sounds Neck: Yes: No masses,lesions,Nodules, Trachea in good position Cardiology: Yes: Regular Rhythm, Regular Rate, S1, S2, Tachycardia Abdominal: Yes: Normal Bowel Sounds, Non Tender, Soft, Protuberent Genitourinary: Yes: Within Normal Limits Back: Yes: Normal Inspection Musculoskeletal: Yes: Joint Stiffness (r knee decreased ROM), Other (unsteady gait) Extremities: Yes: Normal Capillary Refill, Non-Tender 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: Motor Strength 5/5 Integumentary: Yes: Normal Color - Diagnostic (1) Alcohol dependence with uncomplicated withdrawal Current Visit: No Status: Acute (2) Cocaine abuse Current Visit: No Status: Chronic (3) Nicotine dependence Current Visit: No Status: Chronic Qualifiers: Nicotine product type: cigarettes Substance use status: in withdrawal Qualified Code(s): F17.213 - Nicotine dependence, cigarettes, with withdrawal BHS Breath Alcohol Content Breath Alcohol Content: 0 Urine Drug Screen - Results Drug Screen Negative: No Urine Drug Screen Results: TERI-Cocaine, BZO-Benzodiazepines Inpatient Rehab Admission - Rehab Decision to Admit Inpatient rehab admission?: No
[2018-07-28] MEDS ORDERED: chlordiazePOXIDE HCL 25 MG CAPSULE PO PRN (15:42)
[2018-07-28] MEDS ORDERED: MAGNESIUM HYDROX 2400MG/30ML ORAL SUSPENSION 30 ML CUP PO PRN (15:42)
[2018-07-28] MEDS ORDERED: MENTHOL/PHENOL 1 EACH UD MM PRN (15:42)
[2018-07-28] MEDS ORDERED: MAGNESIUM CITRATE 300 ML BOTTLE PO PRN (15:42)
[2018-07-28] MEDS ORDERED: IBUPROFEN 400 MG TABLET (FP) PO PRN (15:42)
[2018-07-28] MEDS ORDERED: NICOTINE POLACRILEX 2 MG GUM BC PRN (15:42)
[2018-07-28] MEDS ORDERED: ACETAMINOPHEN 325 MG TABLET (FP) PO PRN (15:42)
[2018-07-28] MEDS ORDERED: MAG HYDROX/AL HYDROX/SIMETH 30 ML UNIT-DOSE CUP PO PRN (15:42)
[2018-07-28] MEDS ORDERED: ALBUTEROL SO4 0.083% IH SOL 2.5 MG/3 ML VIAL.NEB. NEB PRN (15:45)
[2018-07-28] MEDS: metFORMIN HCL 500 MG TABLET (FP) PO SCH (20:38)
[2018-07-28] MEDS: INSULIN SLIDING SCALE (NOVOLOG) 1 VIAL SQ SCH (20:38)
[2018-07-28] MEDS: chlordiazePOXIDE HCL 25 MG CAPSULE PO SCH ×2 (21:22→22:50)
[2018-07-28] MEDS ORDERED: MELATONIN 5 MG TABLETS PO PRN (22:00)
[2018-07-28] MEDS: ATORVASTATIN CA 20 MG TABLET (FP) PO SCH (22:50)
[2018-07-28] MEDS: THIAMINE HCL 100 MG TABLET (FP) PO SCH (22:50)
[2018-07-29] MEDS: chlordiazePOXIDE HCL 25 MG CAPSULE PO SCH ×4 (06:13→23:30)
[2018-07-29] MEDS: metFORMIN HCL 500 MG TABLET (FP) PO SCH ×2 (06:13→17:21)
[2018-07-29] MEDS: INSULIN SLIDING SCALE (NOVOLOG) 1 VIAL SQ SCH ×2 (06:16→17:21)
[2018-07-29] MEDS ORDERED: FOLIC ACID 1 MG TABLET (FP) PO SCH (10:00)
[2018-07-29] MEDS: ASPIRIN 81 MG CHEWABLE TABLETS PO SCH (10:54)
[2018-07-29] MEDS: PRENATAL VITAMINS W/ FOLIC ACID TABLET (FP) PO SCH (10:54)
[2018-07-29] MEDS: LISINOPRIL 10 MG TABLET (FP) PO SCH (10:54)
[2018-07-29 11:34] LABS: ALBUMIN 3.4 g/dl (3.4-5.0); ALK PHOS 69 U/L (45-117); ANION GAP 5 MMOL/L (8-16); BILIRUBIN,TOTAL 0.3 mg/dL (0.2-1); BLOOD UREA NITROGEN 14 mg/dL (7-18); CALCIUM 8.6 mg/dL (8.5-10.1); CHLORIDE 107 mmol/L (98-107); CO2 28 mmol/L (21-32); GLUCOSE,RANDOM 116 mg/dL (74-106); POTASSIUM 4.1 mmol/L (3.5-5.1); SGOT/AST 15 U/L (15-37); SGPT/ALT 24 U/L (13-61); SODIUM 140 mmol/L (136-145); TOT PROT 6.6 g/dl (6.4-8.2)
[2018-07-29 11:48] LABS: HEMATOCRIT 36.4 % (35.4-49); HEMOGLOBIN 12.5 GM/dL (11.7-16.9); MCH 31.3 pg (25.7-33.7); MCHC 34.2 g/dl (32.0-35.9); MEAN CELL VOLUME 91.5 fl (80-96); MEAN PLT VOLUME 7.9 fl (7.5-11.1); PLATELET COUNT 300 K/MM3 (134-434); RBC 3.98 M/mm3 (4.00-5.60); RDW 14.9 % (11.9-15.9); WHITE BLOOD COUNT 4.4 K/mm3 (4.0-10.0)
--- NOTE | 2018-07-29 12:47 | PN ---
[facility] CIWA - CIWA Score Nausea/Vomitin-Mild Nausea/No Vomiting Muscle Tremors: 3 Anxiety: 2 Agitation: 3 Paroxysmal Sweats: 3 Orientation: 0-Oriented Tacttile Disturbances: 0-None Auditory Disturbances: 0-None Visual Disturbances: 0-None Headache: 0-None Present CIWA-Ar Total Score: 12 S Progress Note (SOAP) Subjective: Sweats some sleep disturbance requested cane Objective: 07/29/18 12:48 A & O x 3 ambulating steadily on unit A little restless Vital Signs Period Temp Pulse Resp BP Sys/Huang Pulse Ox Last 24 Hr 97.8 F-98.6 F 72-96 16-18 114-136/74-78 Laboratory Last Values WBC 4.4 K/mm3 (4.0-10.0) 07/29/18 07:40 RBC 3.98 M/mm3 (4.00-5.60) L 07/29/18 07:40 Hgb 12.5 GM/dL (11.7-16.9) 07/29/18 07:40 Hct 36.4 % (35.4-49) 07/29/18 07:40 MCV 91.5 fl (80-96) 07/29/18 07:40 MCH 31.3 pg (25.7-33.7) 07/29/18 07:40 MCHC 34.2 g/dl (32.0-35.9) 07/29/18 07:40 RDW 14.9 % (11.9-15.9) 07/29/18 07:40 Plt Count 300 K/MM3 (134-434) 07/29/18 07:40 MPV 7.9 fl (7.5-11.1) D 07/29/18 07:40 Sodium 140 mmol/L (136-145) 07/29/18 07:40 Potassium 4.1 mmol/L (3.5-5.1) 07/29/18 07:40 Chloride 107 mmol/L (98-107) 07/29/18 07:40 Carbon Dioxide 28 mmol/L (21-32) 07/29/18 07:40 Anion Gap 5 MMOL/L (8-16) L 07/29/18 07:40 BUN 14 mg/dL (7-18) 07/29/18 07:40 Creatinine 1.0 mg/dL (0.55-1.3) 07/29/18 07:40 Creat Clearance w eGFR > 60 (>60) 07/29/18 07:40 POC Glucometer 187 UNITS (80-120) 07/29/18 06:15 Random Glucose 116 mg/dL (74-106) H 07/29/18 07:40 Calcium 8.6 mg/dL (8.5-10.1) 07/29/18 07:40 Total Bilirubin 0.3 mg/dL (0.2-1) 07/29/18 07:40 AST 15 U/L (15-37) 07/29/18 07:40 ALT 24 U/L (13-61) 07/29/18 07:40 Alkaline Phosphatase 69 U/L (45-117) 07/29/18 07:40 Total Protein 6.6 g/dl (6.4-8.2) 07/29/18 07:40 Albumin 3.4 g/dl (3.4-5.0) 07/29/18 07:40 RPR Titer Nonreactive (NONREACTIVE) 07/29/18 07:40 HIV 1&2 Antibody Screen Negative 07/29/18 07:40 HIV P24 Antigen Negative 07/29/18 07:40 labs noted High blood glucose Assessment: 07/29/18 12:50 withdrawal sx elevated blood glucose in line with DM dx Plan: continue detox continue hyperglycemic agent increase water hydration cane already ordered
--- NOTE | 2018-07-29 16:41 | CONSULT ---
[facility] Psychiatric Consult - Data Date of interview: 07/29/18 Admission source: [facility] Identifying data: This is one of multiple admissions to [facility] for this 53 y/ o AA male undergoing detoxification (alcohol, cocaine). Interviewed on . Patient is single, a father of three, homeless, unemployed and supported on SSI benefits (self-report). Substance Abuse History: Patient declines to discuss this domain. As per records , the patient is already known for an enduring history of alcohol + cocaine abuse. Frequent utilization of detox/rehabilitation services. Medical History: As per records : diabetes mellitus, dyslipidemia, hypertension , osteoarthritis, chronic lumbar pain, bronchial asthma, coronary artery disease , hypertension and dyspepsia. Psychiatric History: Patient is a hostile, dismissive and irrritable historian. Not informative. History taken from records : first psychiatric contact (age 8) . Had his first admission to [facility] (visual hallucinations). Diagnosed with Schizophrenia. Managed with haloperidol. History of multiple psychiatric hospitalizations ([facility], [facility]). Has been prescribed various medications over the years (depakote, zoloft, trazodone , seroquel, risperdal. Chronically non-adherent to medications.Patient, in this interview, denies any present contact with psychiatrists in the community. Mr Barbara denies history of suicide attempts (records validates a history of wrist -cutting). Physical/Sexual Abuse/Trauma History: Patient denies. Additional Comment: Urine Drug Screen Results: TERI-Cocaine, BZO- Benzodiazepines. Noted. Mental Status Exam - Mental Status Exam Alert and Oriented to: Time, Place, Person Cognitive Function: Grossly Intact Patient Appearance: Unkempt, Disheveled Mood: Angry, Withdrawn, Irritable Affect: Mood Congruent Patient Behavior: Inappropriate, Fatigued, Uncooperative Speech Pattern: Clear Voice Loudness: Normal Thought Process: Goal Oriented Thought Disorder: Not Present Hallucinations: Denies Suicidal Ideation: Denies Homicidal Ideation: Denies Insight/Judgement: Poor Sleep: Well Appetite: Good Gait/Station: Other (not observed ; patient declines to get out of bed on command) Psychiatric Findings - Problem List ([place] 1, 2,3) (1) Alcohol dependence with uncomplicated withdrawal Current Visit: Yes Status: Acute (2) Cocaine dependence, uncomplicated Current Visit: Yes Status: Chronic (3) Nicotine dependence Current Visit: Yes Status: Chronic Qualifiers: Nicotine product type: cigarettes Substance use status: in withdrawal Qualified Code(s): F17.213 - Nicotine dependence, cigarettes, with withdrawal (4) Non-compliance Current Visit: Yes Status: Chronic - Initial Treatment Plan Initial Treatment Plan: Psychoeducation when patient becomes cooperative. Sleep hygiene. Detoxification. Support. Observation.
[2018-07-29] MEDS: THIAMINE HCL 100 MG TABLET (FP) PO SCH (23:30)
[2018-07-29] MEDS: ATORVASTATIN CA 20 MG TABLET (FP) PO SCH (23:30)
[2018-07-30] MEDS: chlordiazePOXIDE HCL 25 MG CAPSULE PO SCH ×2 (05:36→10:30)
[2018-07-30] MEDS: metFORMIN HCL 500 MG TABLET (FP) PO SCH ×2 (08:07→18:13)
[2018-07-30] MEDS: INSULIN SLIDING SCALE (NOVOLOG) 1 VIAL SQ SCH ×2 (08:07→18:14)
[2018-07-30] MEDS: ASPIRIN 81 MG CHEWABLE TABLETS PO SCH (10:30)
[2018-07-30] MEDS: PRENATAL VITAMINS W/ FOLIC ACID TABLET (FP) PO SCH (10:30)
[2018-07-30] MEDS: LISINOPRIL 10 MG TABLET (FP) PO SCH (10:30)
[2018-07-30] MEDS ORDERED: NAPROXEN 500 MG TABLET (FP) PO PRN (11:26)
[2018-07-30] MEDS ORDERED: ALBUTEROL SO4 0.083% IH SOL 2.5 MG/3 ML VIAL.NEB. NEB PRN (11:31)
[2018-07-30] MEDS ORDERED: ACETAMINOPHEN 325 MG TABLET (FP) PO PRN (11:31)
[2018-07-30] MEDS ORDERED: ALBUTEROL SO4 8 GM HFA INHALER IH PRN (11:32)
--- NOTE | 2018-07-30 14:37 | PN ---
[facility] CIWA - CIWA Score Nausea/Vomitin-Mild Nausea/No Vomiting Muscle Tremors: 2 Anxiety: 2 Agitation: 2 Paroxysmal Sweats: 2 Orientation: 0-Oriented Tacttile Disturbances: 0-None Auditory Disturbances: 0-None Visual Disturbances: 0-None Headache: 0-None Present CIWA-Ar Total Score: 9 S Progress Note (SOAP) Subjective: Anxious, interrupted sleep, irritable. Patient stated he uses albuterol pump prn at home for asthma and naproxen 500mg bid prn for arthritis and is requesting to resume both of them. Patient also requesting a cane for easier mobility. Objective: 07/30/18 14:37 Last Vital Signs Temp Pulse Resp BP Pulse Ox 98.4 F 70 18 108/59 L 07/30/18 13:11 07/30/18 13:11 07/30/18 13:11 07/30/18 13:11 Laboratory Tests 07/29/18 07/29/18 07/29/18 06:15 07:40 07:40 WBC 4.4 RBC 3.98 L Hgb 12.5 Hct 36.4 MCV 91.5 MCH 31.3 MCHC 34.2 RDW 14.9 Plt Count 300 MPV 7.9 D Sodium 140 Potassium 4.1 Chloride 107 Carbon Dioxide 28 Anion Gap 5 L BUN 14 Creatinine 1.0 Creat Clearance w eGFR > 60 POC Glucometer 187 Random Glucose 116 H Calcium 8.6 Total Bilirubin 0.3 AST 15 ALT 24 Alkaline Phosphatase 69 Total Protein 6.6 Albumin 3.4 RPR Titer HIV 1&2 Antibody Screen HIV P24 Antigen 07/29/18 07/29/18 07/30/18 07:40 07:40 05:35 WBC RBC Hgb Hct MCV MCH MCHC RDW Plt Count MPV Sodium Potassium Chloride Carbon Dioxide Anion Gap BUN Creatinine Creat Clearance w eGFR POC Glucometer 107 Random Glucose Calcium Total Bilirubin AST ALT Alkaline Phosphatase Total Protein Albumin RPR Titer Nonreactive HIV 1&2 Antibody Screen Negative HIV P24 Antigen Negative Labs reviewed: hyperglycemia Assessment: 07/30/18 14:38 Withdrawal symptoms Noted with hyperglycemia Plan: Continue detox Encouraged PO water intake Hyperglycemia secondary to DMT2: continue diabetic regimen Follow up with PCP in 1-2 weeks post discharged for management Albuterol mdi prn and naproxen 500mg q12hr prn ordered as per patient's request Roney d/c'd due to naproxen use, tylenol prn for mild pain
[2018-07-30] MEDS: chlordiazePOXIDE 5 MG CAPSULE PO SCH (18:13)
[2018-07-30 21:23] VITALS: TEMP 98.2
[2018-07-31] MEDS: ATORVASTATIN CA 20 MG TABLET (FP) PO SCH (00:23)
[2018-07-31] MEDS: chlordiazePOXIDE 5 MG CAPSULE PO SCH ×3 (00:24→06:10)
[2018-07-31] MEDS: THIAMINE HCL 100 MG TABLET (FP) PO SCH (00:24)
[2018-07-31 06:47] VITALS: BP 149/88; PULSE 77
[2018-07-31] MEDS: metFORMIN HCL 500 MG TABLET (FP) PO SCH (07:10)
[2018-07-31] MEDS: INSULIN SLIDING SCALE (NOVOLOG) 1 VIAL SQ SCH (07:13)
--- NOTE | 2018-07-31 16:21 | PN ---
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, to begin Daily AM rounds, Patient walked off unit (with a Staff Escort) stating "That He Just Wanted Leave and that he is not waiting for anyone to take him downstairs." Objective: 07/31/18 16:19 Vital Signs Temperature 98.2 F 07/31/18 06:46 Pulse Rate 77 07/31/18 06:46 Respiratory Rate 18 07/31/18 06:46 Blood Pressure 149/88 07/31/18 06:46 O2 Sat by Pulse Oximetry (%) Laboratory Tests 07/29/18 07/29/18 07/29/18 06:15 07:40 07:40 WBC 4.4 RBC 3.98 L Hgb 12.5 Hct 36.4 MCV 91.5 MCH 31.3 MCHC 34.2 RDW 14.9 Plt Count 300 MPV 7.9 D Sodium 140 Potassium 4.1 Chloride 107 Carbon Dioxide 28 Anion Gap 5 L BUN 14 Creatinine 1.0 Creat Clearance w eGFR > 60 POC Glucometer 187 Random Glucose 116 H Calcium 8.6 Total Bilirubin 0.3 AST 15 ALT 24 Alkaline Phosphatase 69 Total Protein 6.6 Albumin 3.4 RPR Titer HIV 1&2 Antibody Screen HIV P24 Antigen 07/29/18 07/29/18 07/30/18 07:40 07:40 05:35 WBC RBC Hgb Hct MCV MCH MCHC RDW Plt Count MPV Sodium Potassium Chloride Carbon Dioxide Anion Gap BUN Creatinine Creat Clearance w eGFR POC Glucometer 107 Random Glucose Calcium Total Bilirubin AST ALT Alkaline Phosphatase Total Protein Albumin RPR Titer Nonreactive HIV 1&2 Antibody Screen Negative HIV P24 Antigen Negative 07/30/18 07/31/18 16:38 05:49 WBC RBC Hgb Hct MCV MCH MCHC RDW Plt Count MPV Sodium Potassium Chloride Carbon Dioxide Anion Gap BUN Creatinine Creat Clearance w eGFR POC Glucometer 123 111 Random Glucose Calcium Total Bilirubin AST ALT Alkaline Phosphatase Total Protein Albumin RPR Titer HIV 1&2 Antibody Screen HIV P24 Antigen LABS NOTED. Assessment: 07/31/18 16:19 WITHDRAWAL SYMPTOMS. Plan: PATIENT LEAVING DETOX UNIT AGAINST MEDICAL ADVICE. SEE FOLLOWING [facility] DISCHARGE SUMMARY.
--- NOTE | 2018-07-31 16:24 | DS ---
[facility] Detox Discharge Summary Admission Date: 07/28/18 Discharge Date: 07/31/18 - History Present History: Alcohol Dependence, Cocaine Dependence Additional Comments: PATIENT DOES NOT WISH TO REMAIN TO COMPLETE DETOX REGIMEN. 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 Pertinent Past History: Asthma, HTN, Type II DM, Hypercholesterolemia, History of Depression, History of Schizoaffective Disorder, History of Osteoarthritis, History of Seizures ( Due to Withdrawal), Nicotine Dependence. - Physical Exam Results Vital Signs: Vital Signs Temperature 98.2 F 07/31/18 06:46 Pulse Rate 77 07/31/18 06:46 Respiratory Rate 18 07/31/18 06:46 Blood Pressure 149/88 07/31/18 06:46 O2 Sat by Pulse Oximetry (%) Pertinent Admission Physical Exam Findings: WITHDRAWAL SYMPTOMS. Laboratory Tests 07/29/18 07/29/18 07/29/18 06:15 07:40 07:40 WBC 4.4 RBC 3.98 L Hgb 12.5 Hct 36.4 MCV 91.5 MCH 31.3 MCHC 34.2 RDW 14.9 Plt Count 300 MPV 7.9 D Sodium 140 Potassium 4.1 Chloride 107 Carbon Dioxide 28 Anion Gap 5 L BUN 14 Creatinine 1.0 Creat Clearance w eGFR > 60 POC Glucometer 187 Random Glucose 116 H Calcium 8.6 Total Bilirubin 0.3 AST 15 ALT 24 Alkaline Phosphatase 69 Total Protein 6.6 Albumin 3.4 RPR Titer HIV 1&2 Antibody Screen HIV P24 Antigen 07/29/18 07/29/18 07/30/18 07:40 07:40 05:35 WBC RBC Hgb Hct MCV MCH MCHC RDW Plt Count MPV Sodium Potassium Chloride Carbon Dioxide Anion Gap BUN Creatinine Creat Clearance w eGFR POC Glucometer 107 Random Glucose Calcium Total Bilirubin AST ALT Alkaline Phosphatase Total Protein Albumin RPR Titer Nonreactive HIV 1&2 Antibody Screen Negative HIV P24 Antigen Negative 07/30/18 07/31/18 16:38 05:49 WBC RBC Hgb Hct MCV MCH MCHC RDW Plt Count MPV Sodium Potassium Chloride Carbon Dioxide Anion Gap BUN Creatinine Creat Clearance w eGFR POC Glucometer 123 111 Random Glucose Calcium Total Bilirubin AST ALT Alkaline Phosphatase Total Protein Albumin RPR Titer HIV 1&2 Antibody Screen HIV P24 Antigen LABS NOTED. - Treatment Hospital Course: Detoxed Safely - Medication Discharge Medications: Ambulatory Orders Sertraline HCl [Zoloft -] 25 mg PO DAILY 08/06/14 Aspirin [ASA -] 81 mg PO DAILY #30 tab.chew MDD 1 03/20/17 Atorvastatin Ca [Lipitor] 20 mg PO HS #30 tablet 03/20/17 metFORMIN HCL [Glucophage -] 500 mg PO BID@0700,1630 #60 tablet MDD 2 03/20/17 Albuterol Sulfate Inhaler - [Ventolin Hfa Inhaler -] 2 inh PO Q4H PRN 09/15/17 Lisinopril [Prinivil] 10 mg PO DAILY 06/01/18 Metronidazole 500 mg PO TID 06/01/18 Naproxen [Naprosyn -] 500 mg PO BID PRN 06/01/18 traZODone HCL [Desyrel -] 150 mg PO HS #30 tablet 06/01/18 - Diagnosis (1) Alcohol dependence with uncomplicated withdrawal Status: Acute (2) Cocaine dependence, uncomplicated Status: Chronic (3) Nicotine dependence Status: Chronic Qualifiers: Nicotine product type: cigarettes Substance use status: in withdrawal Qualified Code(s): F17.213 - Nicotine dependence, cigarettes, with withdrawal (4) Non-compliance Status: Chronic - AMA Did Patient Leave Against Medical Advice: Yes (PATIENT DID NOT WISH TO REMAIN TO COMPLETE DETOX REGIMEN.)
[2018-07-31] MEDS ORDERED: chlordiazePOXIDE HCL 10 MG CAPSULE PO SCH (17:00)
== END 2018-07-31 08:30 | disposition left against medical advice (07) | DRG 770 ==
LOC: YASAS 13:55 → Y6N 17:03
PROVIDERS: ADMIT Surgery; ATTEND Surgery
PROC: HZ2ZZZZ Detoxification Services for Substance Abuse Treatment (ICD-10-PCS; principal; 2018-07-28)
DX: F10.230 Alcohol dependence with withdrawal, uncomplicated (principal); F14.20 Cocaine dependence, uncomplicated; F17.213 Nicotine dependence, cigarettes, with withdrawal; F41.9 Anxiety disorder, unspecified; F32.9 Major depressive disorder, single episode, unspecified; F25.9 Schizoaffective disorder, unspecified; I10 Essential (primary) hypertension; J45.20 Mild intermittent asthma, uncomplicated; E78.2 Mixed hyperlipidemia; M19.012 Primary osteoarthritis, left shoulder; E11.65 Type 2 diabetes mellitus with hyperglycemia; R00.0 Tachycardia, unspecified; Z91.19 Patient's noncompliance with other medical treatment and regimen; Z79.84 Long term (current) use of oral hypoglycemic drugs; Z59.0 Homelessness
CPT/HCPCS: 36415; 80053; 82962; 85027; 86593; 87389

== ENCOUNTER 2018-10-19 10:34 | Inpatient (IN) | payer OTHER ==
[2018-10-19 11:41] VITALS: BMI 29.8
--- NOTE | 2018-10-19 12:16 | HP ---
COWS - Scale Resting Pulse: 1= ND 81-100 Sweatin= Chills/Flushing Restless Observation: 3= Extraneous Movement Pupil Size: 1= Pupils >than Normal Bone or Joint Aches: 2= Severe Diffuse Aches Runny Nose/ Eye Tearin= Runny Nose/Eyes GI Upset > 30mins: 2= Nausea/Diarrhea Tremor Observation: 2= Slight Tremor Visible Yawning Observation: 2= >3x During Session Anxiety or Irritability: 2=Irritable/Anxious Goose Flesh Skin: 0=Smooth Skin COWS Score: 18 CIWA Score Nausea/Vomitin Muscle Tremors: 2 Anxiety: 3 Agitation: 3 Paroxysmal Sweats: 1-Minimal Palms Moist Orientation: 0-Oriented Tacttile Disturbances: 1-Very Mild Itch/Numbness Auditory Disturbances: 1-Very Mild Visual Disturbances: 0-None Headache: 2-Mild CIWA-Ar Total Score: 15 - Admission Criteria [facility]ASAS Guidelines: Admission for Medically Managed Detox: Requires at least one of the followin. CIWA greater than 12 2. Seizures within the past 24 hours 3. Delirium tremens within the past 24 hours 4. Hallucinations within the past 24 hours 5. Acute intervention needed for co occurring medical disorder 6. Acute intervention needed for co occurring psychiatric disorder 7. Severe withdrawal that cannot be handled at a lower level of care (continued vomiting, continued diarrhea, abnormal vital signs) requiring intravenous medication and/or fluids 8. Admission [facility] Chief Complaint: i need help to stop using heroin,alcohol,cocaine, Allergies/Adverse Reactions: Allergies Allergy/AdvReac Type Severity Reaction Status Date / Time turkey Allergy Severe Hives Verified 10/19/18 11:30 No Known Drug Allergies Allergy Verified 10/19/18 11:30 PASTA Allergy Severe Hives Uncoded 10/19/18 11:30 red sauce Allergy Severe Hives Uncoded 10/19/18 11:30 History of Present Illness: this 53 years old male with alcohol,cocaine dependence,heroin abused,seeking detox,withdrawal symptom multiple admissions in detox,last [facility] 07/28/18 to 07/31/18 seizure last 10/06 syncope alcohol related keep relapsing history of hypertension,type 2 dm, nicotine dependence 5 cigarette,requesting nicotine patch injury to right knee 2 years ago ambulation with cane, depression asthma longest sobriety 9 years Exam Limitations: No Limitations - Ebola screening Have you traveled outside of the country in the last 21 days: No Have you had contact with anyone from an Ebola affected area: No - Review of Systems Constitutional: Loss of Appetite, Malaise, Night Sweats, Changes in sleep, Weakness EENT: reports: Tearing, Hearing Loss, Nose Congestion (hearing loss left 8 years ) Respiratory: reports: No Symptoms reported, Other (asthma) Cardiac: reports: No Symptoms Reported GI: reports: Nausea, Vomiting, Abdominal cramping : reports: No Symptoms Reported Musculoskeletal: reports: Back Pain, Joint Pain, Muscle Pain, Other (injury pf right knee old) Integumentary: reports: Dryness Neuro: reports: Headache, Tremors Endocrine: reports: No Symptoms Reported, Other (type 2 dm) Hematology: reports: No Symptoms Reported Psychiatric: reports: No Sypmtoms Reported, Judgement Intact, Mood/Affect Appropiate, Orientated x3, Depressed, other (insomnia) Other Systems: Reviewed and Negative Patient History - Patient Medical History Hx Anemia: No Hx Asthma: Yes (on inhaler) Hx Chronic Obstructive Pulmonary Disease (COPD): No Hx Cancer: No Hx Cardiac Disorders: No Hx Congestive Heart Failure: No Hx Hypertension: Yes (on med) Hx Hypercholesterolemia: Yes (ON MED) Hx Pacemaker: No HX Cerebrovascular Accident: No Hx Seizures: No Hx Dementia: No Hx Diabetes: Yes (NIDDM) Hx Gastrointestinal Disorders: No Hx Liver Disease: No Hx Genitourinary Disorders: No Hx Sexually Transmitted Disorders: No Hx Renal Disease (ESRD): No Hx Thyroid Disease: No Hx Human Immunodeficiency Virus (HIV): No (NEGATIVE HX in 2017 last) Hx Hepatitis C: No Hx Depression: Yes Hx Suicide Attempt: No Hx Bipolar Disorder: No Hx Schizophrenia: Yes (schizoaffective disorder) Other Medical History: no suicidal,no homicidal,old right knee injury using the cane - Patient Surgical History Past Surgical History: No Hx Neurologic Surgery: No Hx Cataract Extraction: No Hx Cardiac Surgery: No Hx Lung Surgery: No Hx Breast Surgery: No Hx Breast Biopsy: No Hx Abdominal Surgery: No Hx Appendectomy: No Hx Cholecystectomy: No Hx Genitourinary Surgery: No Hx Section: No Hx Orthopedic Surgery: No Anesthesia Reaction: No - PPD History Previous Implant?: Yes Documented Results: Negative w/proof Implanted On Prior [facility] Admission?: Yes Date: 12/01/17 Results: negative PPD to be Administered?: No - Smoking Cessation Smoking history: Smoker current status UNK Have you smoked in the past 12 months: No Aproximately how many cigarettes per day: 5 Cigars Per Day: 0 Hx Chewing Tobacco Use: No Initiated information on smoking cessation: Yes 'Breaking Loose' booklet given: 10/19/18 - Substance & Tx. History Hx Alcohol Use: Yes Hx Substance Use: Yes Substance Use Type: Alcohol, Cocaine, Heroin Hx Substance Use Treatment: Yes ([facility] 07/22/18 to 07/31/18) - Substances abused Alcohol Substance route: Oral Frequency: Daily Amount used: 2pints of rum/6 of 40 ozs of beer Age of first use: 3 Date of last use: 10/19/18 Crack Substance route: Smoking Frequency: 1-3 times last 30 days Amount used: 8 balls ( $300) Age of first use: 11 Date of last use: 10/19/18 Cocaine Substance route: Smoking Frequency: Daily Amount used: 8 balls Age of first use: 11 Date of last use: 10/19/18 Heroin Substance route: Inhalation Frequency: 1-3 times last 30 days Amount used: 2 bags Age of first use: 53 Date of last use: 10/19/18 Family Disease History - Family Disease History Family Disease History: Diabetes: Father (DRUG,ALCOHOL,HTN), Mother (HEART SURGERY,), Heart Disease: Father, Mother, Other: Father Admission Physical Exam [facility] - Vital Signs Vital Signs: Vital Signs - 24 hr 10/19/18 10/19/18 11:34 12:00 Temperature 96.8 F L 96.8 F L Pulse Rate 89 89 Respiratory 18 18 Rate Blood Pressure 128/88 128/88 - Physical General Appearance: Yes: Moderate Distress, Tremorous, Irritable, Sweating, Anxious HEENTM: Yes: Normal ENT Inspection, BELLE, Pharynx Normal Respiratory: Yes: Lungs Clear, Normal Breath Sounds, No Respiratory Distress Neck: Yes: Within Normal Limits, Supple, Trachea in good position Breast: Yes: Within Normal Limits Cardiology: Yes: Within Normal Limits, Regular Rhythm, Regular Rate, S1, S2 Abdominal: Yes: Within Normal Limits, Normal Bowel Sounds, Non Tender, Soft Genitourinary: Yes: Within Normal Limits Back: Yes: Muscle Spasm Musculoskeletal: Yes: Back pain, Muscle Pain Extremities: Yes: Tremors, Other (swelling of right knee) 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 intact, Alert, Motor Strength 5/5 Integumentary: Yes: Dry Lymphatic: Yes: Within Normal Limits - Diagnostic (1) Alcohol dependence with uncomplicated withdrawal Status: Acute (2) Cocaine dependence, uncomplicated Status: Chronic (3) Essential (primary) hypertension Status: Chronic (4) HLD (hyperlipidemia) Status: Chronic Qualifiers: Hyperlipidemia type: mixed hyperlipidemia Qualified Code(s): E78.2 - Mixed hyperlipidemia (5) HTN (hypertension), benign Status: Chronic (6) Nicotine dependence Status: Chronic Qualifiers: Nicotine product type: cigarettes Substance use status: in withdrawal Qualified Code(s): F17.213 - Nicotine dependence, cigarettes, with withdrawal (7) OA (osteoarthritis) Status: Chronic Qualifiers: Osteoarthritis location: shoulder Osteoarthritis type: unspecified Laterality: left Qualified Code(s): M19.012 - Primary osteoarthritis, left shoulder (8) Schizoaffective disorder Status: Chronic Qualifiers: Schizoaffective disorder type: unspecified Qualified Code(s): F25.9 - Schizoaffective disorder, unspecified (9) Type 2 diabetes mellitus Status: Chronic Qualifiers: Diabetes mellitus usp insulin use: without usp use Diabetes mellitus complication status: without complication Qualified Code(s): E11.9 - Type 2 diabetes mellitus without complications (10) Use of cane as ambulatory aid Status: Acute Cleared for Admission S - Detox or Rehab [facility] Level of Care: Medically Managed Detox Regimen/Protocol: Librium Breathalyzer - Breathalyzer Breathalyzer: 0 Urine Drug Screen - Test Device Lot number: [id number] Expiration date: 05/19/20 - Control Is test valid?: Yes - Results Drug screen NEGATIVE: No Urine drug screen results: TERI-Cocaine, AMP-Amphetamines, MOP-Opiates, BZO- Benzodiazepines Inpatient Rehab Admission - Rehab Decision to Admit Inpatient rehab admission?: No
[2018-10-19] MEDS ORDERED: MELATONIN 5 MG TABLETS PO PRN (12:27)
[2018-10-19] MEDS ORDERED: MENTHOL/PHENOL 1 EACH UD MM PRN (12:27)
[2018-10-19] MEDS ORDERED: BISMUTH SUBSALICYLATE 262 MG/15 ML BTL PO PRN (12:27)
[2018-10-19] MEDS ORDERED: chlordiazePOXIDE HCL 25 MG CAPSULE PO PRN (12:27)
[2018-10-19] MEDS ORDERED: METHOCARBAMOL 500 MG TABLET PO PRN (12:27)
[2018-10-19] MEDS ORDERED: IBUPROFEN 400 MG TABLET (FP) PO PRN (12:27)
[2018-10-19] MEDS ORDERED: ACETAMINOPHEN 325 MG TABLET (FP) PO PRN ×2 (12:27)
[2018-10-19] MEDS ORDERED: MAGNESIUM HYDROX 2400MG/30ML ORAL SUSPENSION 30 ML CUP PO PRN (12:27)
[2018-10-19] MEDS ORDERED: MAGNESIUM CITRATE 300 ML BOTTLE PO PRN (12:27)
[2018-10-19] MEDS ORDERED: MAG HYDROX/AL HYDROX/SIMETH 30 ML UNIT-DOSE CUP PO PRN (12:27)
[2018-10-19] MEDS ORDERED: hydrOXYzine PAMOATE 25 MG CAPSULE (FP) PO PRN (12:27)
[2018-10-19] MEDS ORDERED: ALBUTEROL SO4 8 GM HFA INHALER IH PRN (12:31)
[2018-10-19] MEDS ORDERED: NAPROXEN 500 MG TABLET (FP) PO PRN (12:31)
[2018-10-19] MEDS ORDERED: NICOTINE 21 MG/24 HOURS TOPICAL PATCH TD SCH (13:45)
[2018-10-19] MEDS: metFORMIN HCL 500 MG TABLET (FP) PO SCH (17:11)
[2018-10-19] MEDS: chlordiazePOXIDE HCL 25 MG CAPSULE PO SCH ×2 (17:12→23:16)
[2018-10-19 17:21] LABS: HEMOGLOBIN 13.4 GM/dL (11.7-16.9); MCH 30.4 pg (25.7-33.7); MCHC 33.6 g/dl (32.0-35.9); MEAN CELL VOLUME 90.4 fl (80-96); MEAN PLT VOLUME 7.9 fl (7.5-11.1); PLATELET COUNT 309 K/MM3 (134-434); RBC 4.42 M/mm3 (4.00-5.60); RDW 15.6 % (11.9-15.9)
[2018-10-19 17:32] LABS: ALK PHOS 61 U/L (45-117); ANION GAP 6 MMOL/L (8-16); BILIRUBIN,TOTAL 0.4 mg/dL (0.2-1); BLOOD UREA NITROGEN 16 mg/dL (7-18); CALCIUM 9.8 mg/dL (8.5-10.1); CHLORIDE 104 mmol/L (98-107); CO2 26 mmol/L (21-32); CREATININE 0.8 mg/dL (0.55-1.3); GLUCOSE,RANDOM 135 mg/dL (74-106); POTASSIUM 3.8 mmol/L (3.5-5.1); SGOT/AST 19 U/L (15-37); SGPT/ALT 34 U/L (13-61); SODIUM 136 mmol/L (136-145); TOT PROT 7.6 g/dl (6.4-8.2)
[2018-10-19] MEDS ORDERED: THIAMINE HCL 100 MG TABLET (FP) PO SCH (22:00)
[2018-10-19] MEDS ORDERED: ATORVASTATIN CA 20 MG TABLET (FP) PO SCH (22:00)
[2018-10-20] MEDS: chlordiazePOXIDE HCL 25 MG CAPSULE PO SCH (06:18)
[2018-10-20 06:34] VITALS: BP 112/69; PULSE 62; TEMP 97.7
--- NOTE | 2018-10-20 06:38 | DS ---
[facility] Detox Discharge Summary Admission Date: 10/19/18 Discharge Date: 10/20/18 - History Additional Comments: Patient is leaving against medical advice. States that he is leaving for personal reasons. Pertinent Past History: Asthma, hypertension, alcohol related seisures, mood disorder - Physical Exam Results Vital Signs: Vital Signs Temperature 97.6 F 10/19/18 21:32 Pulse Rate 90 10/19/18 21:32 Respiratory Rate 18 10/20/18 03:30 Blood Pressure 125/87 10/19/18 21:32 O2 Sat by Pulse Oximetry (%) Laboratory Last Values WBC 7.0 K/mm3 (4.0-10.0) 10/19/18 12:30 RBC 4.42 M/mm3 (4.00-5.60) 10/19/18 12:30 Hgb 13.4 GM/dL (11.7-16.9) 10/19/18 12:30 Hct 40.0 % (35.4-49) 10/19/18 12:30 MCV 90.4 fl (80-96) 10/19/18 12:30 MCH 30.4 pg (25.7-33.7) 10/19/18 12:30 MCHC 33.6 g/dl (32.0-35.9) 10/19/18 12:30 RDW 15.6 % (11.9-15.9) 10/19/18 12:30 Plt Count 309 K/MM3 (134-434) 10/19/18 12:30 MPV 7.9 fl (7.5-11.1) 10/19/18 12:30 Sodium 136 mmol/L (136-145) 10/19/18 12:30 Potassium 3.8 mmol/L (3.5-5.1) 10/19/18 12:30 Chloride 104 mmol/L (98-107) 10/19/18 12:30 Carbon Dioxide 26 mmol/L (21-32) 10/19/18 12:30 Anion Gap 6 MMOL/L (8-16) L 10/19/18 12:30 BUN 16 mg/dL (7-18) 10/19/18 12:30 Creatinine 0.8 mg/dL (0.55-1.3) 10/19/18 12:30 Creat Clearance w eGFR 100.36 (>60) 10/19/18 12:30 POC Glucometer 105 UNITS (80-120) 10/19/18 16:30 Random Glucose 135 mg/dL (74-106) H 10/19/18 12:30 Calcium 9.8 mg/dL (8.5-10.1) 10/19/18 12:30 Total Bilirubin 0.4 mg/dL (0.2-1) 10/19/18 12:30 AST 19 U/L (15-37) 10/19/18 12:30 ALT 34 U/L (13-61) 10/19/18 12:30 Alkaline Phosphatase 61 U/L (45-117) 10/19/18 12:30 Total Protein 7.6 g/dl (6.4-8.2) 10/19/18 12:30 Albumin 4.0 g/dl (3.4-5.0) 10/19/18 12:30 Pertinent Admission Physical Exam Findings: Withdrawal symptoms - Medication Discharge Medications: Ambulatory Orders Sertraline HCl [Zoloft -] 25 mg PO DAILY 08/06/14 Aspirin [ASA -] 81 mg PO DAILY #30 tab.chew MDD 1 03/20/17 Atorvastatin Ca [Lipitor] 20 mg PO HS #30 tablet 03/20/17 metFORMIN HCL [Glucophage -] 500 mg PO BID@0700,1630 #60 tablet MDD 2 03/20/17 Albuterol Sulfate Inhaler - [Ventolin Hfa Inhaler -] 2 inh PO Q4H PRN 09/15/17 Lisinopril [Prinivil] 10 mg PO DAILY 06/01/18 Naproxen [Naprosyn -] 500 mg PO BID PRN 06/01/18 traZODone HCL [Desyrel -] 150 mg PO HS #30 tablet 06/01/18 - Diagnosis (1) Alcohol dependence with uncomplicated withdrawal Current Visit: No Status: Acute (2) Alcohol related seizure Current Visit: No Status: Chronic (3) Anxiety and depression Current Visit: No Status: Chronic (4) Asthma Current Visit: No Status: Chronic Qualifiers: Asthma severity: mild Asthma persistence: intermittent Asthma complication type: uncomplicated Qualified Code(s): J45.20 - Mild intermittent asthma, uncomplicated (5) Cocaine dependence, uncomplicated Current Visit: No Status: Chronic (6) GERD (gastroesophageal reflux disease) Current Visit: No Status: Chronic Qualifiers: Esophagitis presence: without esophagitis Qualified Code(s): K21.9 - Gastro -esophageal reflux disease without esophagitis (7) HLD (hyperlipidemia) Current Visit: No Status: Chronic Qualifiers: Hyperlipidemia type: mixed hyperlipidemia Qualified Code(s): E78.2 - Mixed hyperlipidemia (8) HTN (hypertension), benign Current Visit: No Status: Chronic (9) Low back pain Current Visit: No Status: Chronic (10) Nicotine dependence Current Visit: No Status: Chronic Qualifiers: Nicotine product type: cigarettes Substance use status: in withdrawal Qualified Code(s): F17.213 - Nicotine dependence, cigarettes, with withdrawal (11) Non-compliance Current Visit: No Status: Chronic (12) OA (osteoarthritis) Current Visit: No Status: Chronic Qualifiers: Osteoarthritis location: shoulder Osteoarthritis type: unspecified Laterality: left Qualified Code(s): M19.012 - Primary osteoarthritis, left shoulder (13) Obesity Current Visit: No Status: Chronic Qualifiers: Obesity type: unspecified obesity type (14) Schizoaffective disorder Current Visit: No Status: Chronic Qualifiers: Schizoaffective disorder type: unspecified Qualified Code(s): F25.9 - Schizoaffective disorder, unspecified (15) Type 2 diabetes mellitus Current Visit: No Status: Chronic Qualifiers: 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
[2018-10-20] MEDS: metFORMIN HCL 500 MG TABLET (FP) PO SCH (06:52)
[2018-10-20] MEDS ORDERED: LISINOPRIL 10 MG TABLET (FP) PO SCH (10:00)
[2018-10-20] MEDS ORDERED: PRENATAL VITAMINS W/ FOLIC ACID TABLET (FP) PO SCH (10:00)
[2018-10-20] MEDS ORDERED: ASPIRIN 81 MG CHEWABLE TABLETS PO SCH (10:00)
[2018-10-20] MEDS ORDERED: chlordiazePOXIDE HCL 25 MG CAPSULE PO SCH (17:00)
[2018-10-21] MEDS ORDERED: chlordiazePOXIDE HCL 10 MG CAPSULE PO SCH (17:00)
[2018-10-21] MEDS ORDERED: chlordiazePOXIDE HCL 10 MG CAPSULE PO PRN (17:00)
[2018-10-22] MEDS ORDERED: chlordiazePOXIDE HCL 10 MG CAPSULE PO SCH (17:00)
== END 2018-10-20 06:30 | disposition left against medical advice (07) | DRG 770 ==
LOC: YASAS 10:34 → Y3N 12:43
PROVIDERS: ADMIT Surgery; ATTEND Surgery
PROC: HZ2ZZZZ Detoxification Services for Substance Abuse Treatment (ICD-10-PCS; principal; 2018-10-19)
DX: F10.230 Alcohol dependence with withdrawal, uncomplicated (principal); F14.20 Cocaine dependence, uncomplicated; F25.9 Schizoaffective disorder, unspecified; F31.9 Bipolar disorder, unspecified; F41.8 Other specified anxiety disorders; I10 Essential (primary) hypertension; K21.9 Gastro-esophageal reflux disease without esophagitis; E11.9 Type 2 diabetes mellitus without complications; Z79.84 Long term (current) use of oral hypoglycemic drugs; M54.5 Low back pain; G89.29 Other chronic pain; E78.2 Mixed hyperlipidemia; J45.20 Mild intermittent asthma, uncomplicated; G40.909 Epilepsy, unspecified, not intractable, without status epilepticus; M19.012 Primary osteoarthritis, left shoulder; R26.89 Other abnormalities of gait and mobility; Z99.89 Dependence on other enabling machines and devices; Z59.0 Homelessness
CPT/HCPCS: 36415; 80053; 82962; 85027; 86593

== ENCOUNTER 2019-06-30 10:42 | Inpatient (IN) | payer OTHER ==
[2019-06-30 14:24] VITALS: BMI 34.9
--- NOTE | 2019-06-30 14:52 | HP ---
CIWA Score Nausea/Vomitin Muscle Tremors: 2 Anxiety: 1-Mildly Anxious Agitation: 1-Slight > Activity Paroxysmal Sweats: 2 Orientation: 0-Oriented Tacttile Disturbances: 2-Mild Itch/Numbness/Burn Auditory Disturbances: 1-Very Mild Visual Disturbances: 2-Mild Sensitivity Headache: 2-Mild CIWA-Ar Total Score: 15 - Admission Criteria OASAS Guidelines: Admission for Medically Managed Detox: Requires at least one of the followin. CIWA greater than 12 2. Seizures within the past 24 hours 3. Delirium tremens within the past 24 hours 4. Hallucinations within the past 24 hours 5. Acute intervention needed for co occurring medical disorder 6. Acute intervention needed for co occurring psychiatric disorder 7. Severe withdrawal that cannot be handled at a lower level of care (continued vomiting, continued diarrhea, abnormal vital signs) requiring intravenous medication and/or fluids 8. Patient presents the following: CIWA greater than 12 Admission Criteria Met: Admission criteria met Admitting History and Physical - Smoking History Smoking history: Smoker current status UNK Have you smoked in the past 12 months: No Aproximately how many cigarettes per day: 5 - Alcohol/Substance Use Hx Alcohol Use: Yes Admission ROS [facility] Chief Complaint: I need help with my alcohol Allergies/Adverse Reactions: Allergies Allergy/AdvReac Type Severity Reaction Status Date / Time turkey Allergy Severe Hives Verified 06/30/19 14:13 PASTA Allergy Severe Hives Uncoded 10/19/18 11:30 red sauce Allergy Severe Hives Uncoded 10/19/18 11:30 History of Present Illness: Patient is a 54 years old male with alcohol cocaine and crack dependence who presents for detox. He has had multiple admissions in detox, last admission was on 10/19/18 with AMA discharge on 10/20/18 He has h/o seizure and syncope related to alcohol, last episode was in September 2018. He reports longest sobriety of 9 years Exam Limitations: No Limitations - Ebola screening Have you traveled outside of the country in the last 21 days: No (N) Have you had contact with anyone from an Ebola affected area: No Have you been sick,other than usual withdrawal symptoms: No Do you have a fever: No - Review of Systems Constitutional: Chills, Loss of Appetite, Changes in sleep, Weight Stable EENT: reports: No Symptoms Reported Respiratory: reports: Cough Cardiac: reports: No Symptoms Reported GI: reports: Diarrhea, Nausea, Poor Appetite, Poor Fluid Intake, Abdominal cramping : reports: No Symptoms Reported Musculoskeletal: reports: Back Pain, Joint Pain Integumentary: reports: Sweating Neuro: reports: Headache, Numbness, Seizure (remote hx), Tremors Endocrine: reports: No Symptoms Reported Hematology: reports: No Symptoms Reported Psychiatric: reports: Depressed Other Systems: Reviewed and Negative Patient History - Patient Medical History Hx Anemia: No Hx Asthma: Yes (on inhaler) Hx Chronic Obstructive Pulmonary Disease (COPD): No Hx Cancer: No Hx Cardiac Disorders: No Hx Congestive Heart Failure: No Hx Hypertension: Yes Hx Hypercholesterolemia: Yes Hx Pacemaker: No HX Cerebrovascular Accident: No Hx Seizures: No Hx Dementia: No Hx Diabetes: Yes (NIDDM) Hx Gastrointestinal Disorders: No Hx Liver Disease: No Hx Genitourinary Disorders: No Hx Sexually Transmitted Disorders: No Hx Renal Disease (ESRD): No Hx Thyroid Disease: No Hx Human Immunodeficiency Virus (HIV): No Hx Hepatitis C: No Hx Depression: Yes Hx Suicide Attempt: No Hx Bipolar Disorder: No Hx Schizophrenia: Yes (schizoaffective disorder) - Patient Surgical History Past Surgical History: No - PPD History Previous Implant?: Yes Documented Results: Negative w/proof Implanted On Prior [facility] Admission?: Yes Date: 12/01/17 Results: negative PPD to be Administered?: Yes - Smoking Cessation Smoking history: Current every day smoker Have you smoked in the past 12 months: Yes Aproximately how many cigarettes per day: 5 Cigars Per Day: 0 Hx Chewing Tobacco Use: No Initiated information on smoking cessation: Yes 'Breaking Loose' booklet given: 06/30/19 - Substances abused Alcohol Substance route: Oral Frequency: Daily Amount used: 1 pint of vodka/ 2 (6 pack 16 ounces) Age of first use: 3 Date of last use: 06/30/19 Crack Substance route: Smoking Frequency: 1-3 times last 30 days Amount used: $100 Age of first use: 11 Date of last use: 06/29/19 Cocaine Substance route: Smoking Frequency: 1-3 times last 30 days Amount used: $100 Age of first use: 11 Date of last use: 06/29/19 Heroin Substance route: Inhalation Frequency: No use in 30 days Amount used: 2 bags Age of first use: 53 Date of last use: 10/19/18 Admission Physical Exam [facility] - Vital Signs Vital Signs: Vital Signs - 24 hr 06/30/19 14:17 Temperature 99.1 F Pulse Rate 97 H Respiratory 18 Rate Blood Pressure 127/82 - Physical General Appearance: Yes: No Apparent Distress, Obese HEENTM: Yes: Hearing grossly Normal, Normal ENT Inspection, Normocephalic, Normal Voice, Pharynx Normal, Tm's normal, Other (missing some teeth) Respiratory: Yes: Chest Non-Tender, Lungs Clear, Normal Breath Sounds, No Respiratory Distress, No Accessory Muscle Use Neck: Yes: No masses,lesions,Nodules, Supple Breast: Yes: Breast Exam Deferred Cardiology: Yes: Regular Rhythm, Regular Rate, S1, S2 Abdominal: Yes: Normal Bowel Sounds, Non Tender, Soft Genitourinary: Yes: Within Normal Limits Back: Yes: Normal Inspection Musculoskeletal: Yes: Gait Steady, Back pain, Muscle Pain Extremities: Yes: Normal Capillary Refill, Tremors, Pedal Edema (milde), Inflammation 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: Fully Oriented, Alert, Normal Mood/Affect Integumentary: Yes: Cold Lymphatic: Yes: Within Normal Limits - Diagnostic (1) Alcohol dependence with uncomplicated withdrawal Current Visit: Yes Status: Acute (2) Asthma Current Visit: Yes Status: Chronic Qualifiers: Asthma severity: mild Asthma persistence: intermittent Asthma complication type: uncomplicated Qualified Code(s): J45.20 - Mild intermittent asthma, uncomplicated (3) Essential (primary) hypertension Current Visit: Yes Status: Chronic (4) HLD (hyperlipidemia) Current Visit: Yes Status: Chronic Qualifiers: Hyperlipidemia type: mixed hyperlipidemia Qualified Code(s): E78.2 - Mixed hyperlipidemia (5) Low back pain Current Visit: Yes Status: Chronic (6) Obesity Current Visit: Yes Status: Chronic Qualifiers: Obesity type: unspecified obesity type (7) Type 2 diabetes mellitus Current Visit: Yes Status: Chronic Qualifiers: Diabetes mellitus superintendent terminal insulin use: without retirement use Diabetes mellitus complication status: without complication Qualified Code(s): E11.9 - Type 2 diabetes mellitus without complications (8) Bipolar disorder Current Visit: Yes Status: Chronic Qualifiers: Active/Remission status: remission status unspecified Qualified Code(s): F31.9 - Bipolar disorder, unspecified Cleared for Admission [facility] - Detox or Rehab [facility] Level of Care: Medically Managed Detox Regimen/Protocol: Librium Claeared for Rehab Admission: No Breathalyzer - Breathalyzer Breathalyzer: 0 Urine Drug Screen - Test Device Lot number: [id number] Expiration date: 01/17/21 - Control Is test valid?: Yes - Results Drug screen NEGATIVE: No Urine drug screen results: TERI-Cocaine Inpatient Rehab Admission - Rehab Decision to Admit Inpatient rehab admission?: No
[2019-06-30] MEDS ORDERED: chlordiazePOXIDE HCL 10 MG CAPSULE PO PRN (14:54)
[2019-06-30] MEDS ORDERED: MAGNESIUM HYDROX 2400MG/30ML ORAL SUSPENSION 30 ML CUP PO PRN (14:54)
[2019-06-30] MEDS ORDERED: NICOTINE POLACRILEX 2 MG GUM BUC PRN (14:54)
[2019-06-30] MEDS ORDERED: chlordiazePOXIDE HCL 25 MG CAPSULE PO ONE (14:54)
[2019-06-30] MEDS ORDERED: METHOCARBAMOL 500 MG TABLET PO PRN (14:54)
[2019-06-30] MEDS ORDERED: MAG HYDROX/AL HYDROX/SIMETH 30 ML UNIT-DOSE CUP PO PRN (14:54)
[2019-06-30] MEDS ORDERED: IBUPROFEN 400 MG TABLET (FP) PO PRN (14:54)
[2019-06-30] MEDS ORDERED: MENTHOL/PHENOL 1 EACH UD MM PRN (14:54)
[2019-06-30] MEDS ORDERED: MAGNESIUM CITRATE 300 ML BOTTLE PO PRN (14:54)
[2019-06-30] MEDS ORDERED: hydrOXYzine PAMOATE 25 MG CAPSULE (FP) PO PRN (14:54)
[2019-06-30] MEDS ORDERED: BISMUTH SUBSALICYLATE 524 MG/30 ML UD PO PRN (14:54)
[2019-06-30] MEDS ORDERED: ACETAMINOPHEN 325 MG TABLET (FP) PO PRN ×2 (14:54)
[2019-06-30] MEDS ORDERED: ALBUTEROL SO4 HFA INHALER IH PRN (14:56)
[2019-06-30] MEDS: metFORMIN HCL 500 MG TABLET (FP) PO SCH (17:32)
[2019-06-30] MEDS ORDERED: MELATONIN 5 MG TABLETS PO PRN (22:00)
[2019-06-30] MEDS: chlordiazePOXIDE HCL 25 MG CAPSULE PO SCH (23:40)
[2019-06-30] MEDS: ATORVASTATIN CA 20 MG TABLET (FP) PO SCH (23:41)
[2019-06-30] MEDS: THIAMINE HCL 100 MG TABLET (FP) PO SCH (23:41)
[2019-07-01] MEDS: chlordiazePOXIDE HCL 25 MG CAPSULE PO SCH ×3 (05:41→22:18)
[2019-07-01] MEDS: metFORMIN HCL 500 MG TABLET (FP) PO SCH ×2 (06:58→17:30)
[2019-07-01] MEDS: PRENATAL VITAMINS W/ FOLIC ACID TABLET (FP) PO SCH (10:14)
[2019-07-01] MEDS: LISINOPRIL 10 MG TABLET (FP) PO SCH (10:14)
[2019-07-01] MEDS: ASPIRIN 81 MG CHEWABLE TABLETS PO SCH (10:14)
[2019-07-01 10:49] LABS: HEMATOCRIT 36.7 % (35.4-49); HEMOGLOBIN 12.2 GM/dL (11.7-16.9); MCH 29.6 pg (25.7-33.7); MCHC 33.3 g/dl (32.0-35.9); MEAN CELL VOLUME 88.9 fl (80-96); MEAN PLT VOLUME 7.9 fl (7.5-11.1); PLATELET COUNT 366 K/MM3 (134-434); RBC 4.13 M/mm3 (4.00-5.60); WHITE BLOOD COUNT 5.1 K/mm3 (4.0-10.0)
[2019-07-01 11:03] LABS: ALBUMIN 3.1 g/dl (3.4-5.0); BILIRUBIN,TOTAL 0.2 mg/dL (0.2-1); CALCIUM 8.7 mg/dL (8.5-10.1); CREATININE 0.9 mg/dL (0.55-1.3); POTASSIUM 4.3 mmol/L (3.5-5.1); TOT PROT 6.4 g/dl (6.4-8.2)
[2019-07-01] MEDS ORDERED: FLU VACCINE QUAD 60 MCG/0.5 ML (MDV 19-20) IM ONE (12:00)
[2019-07-01] MEDS ORDERED: PNEUMOCOCCAL 23 VACCINE 0.5 ML VIAL IM ONE (12:00)
[2019-07-01] MEDS ORDERED: PNEUMOC 13-VAL CONJ-DIP CRM/PF 0.5 ML DISP.SYRIN IM ONE (12:00)
--- NOTE | 2019-07-01 14:29 | CONSULT ---
[facility] Psychiatric Consult - Data Date of interview: 07/01/19 Psychiatric History: Patient approached at bedside. He was found sound asleep in bed and calling his name out loud had no effect on waking him up. Because of his history of hostility and uncooperativeness from previous admissons, it was best to leave him alone. Please request reconsult when more appropriate and willing to be interviewed
--- NOTE | 2019-07-01 15:42 | PN ---
[facility] CIWA - CIWA Score Nausea/Vomitin-Mild Nausea/No Vomiting Muscle Tremors: 3 Anxiety: 3 Agitation: 2 Paroxysmal Sweats: 3 Orientation: 0-Oriented Tacttile Disturbances: 0-None Auditory Disturbances: 0-None Visual Disturbances: 0-None Headache: 0-None Present CIWA-Ar Total Score: 12 [facility] Progress Note (SOAP) Subjective: Tremor, interrupted sleep Objective: 07/01/19 15:38 Last Vital Signs Temp Pulse Resp BP Pulse Ox 98.0 F 78 18 145/81 07/01/19 09:33 07/01/19 09:33 07/01/19 09:33 07/01/19 09:33 Elevated b/p: has htn, on med Laboratory Tests 06/30/19 07/01/19 07/01/19 17:26 05:41 07:15 WBC 5.1 RBC 4.13 Hgb 12.2 Hct 36.7 MCV 88.9 MCH 29.6 MCHC 33.3 RDW 14.0 D Plt Count 366 MPV 7.9 Sodium Potassium Chloride Carbon Dioxide Anion Gap BUN Creatinine Est GFR (CKD-EPI)AfAm Est GFR (CKD-EPI)NonAf POC Glucometer 160 174 Random Glucose Calcium Total Bilirubin AST ALT Alkaline Phosphatase Total Protein Albumin RPR Titer 07/01/19 07/01/19 07:15 07:15 WBC RBC Hgb Hct MCV MCH MCHC RDW Plt Count MPV Sodium 139 Potassium 4.3 Chloride 108 H Carbon Dioxide 25 Anion Gap 6 L BUN 10.0 Creatinine 0.9 Est GFR (CKD-EPI)AfAm 110.27 Est GFR (CKD-EPI)NonAf 95.14 POC Glucometer Random Glucose 142 H Calcium 8.7 Total Bilirubin 0.2 AST 14 L ALT 43 Alkaline Phosphatase 87 Total Protein 6.4 Albumin 3.1 L RPR Titer Nonreactive Labs reviewed: serum glucose 142 (high), albumin 3.1 (low) Assessment: 07/01/19 15:40 Withdrawal sxs Noted with HTN, DMT2 and hypoalbuminemia Plan: Continue detox Encouraged PO water intake HTN: continue lisinopril, low sodium diet, monitor b/p DMT2: continue metformin and diabetic regimen Hypoalbuminemia: encouraged diet
[2019-07-01] MEDS: THIAMINE HCL 100 MG TABLET (FP) PO SCH (22:18)
[2019-07-01] MEDS: ATORVASTATIN CA 20 MG TABLET (FP) PO SCH (22:18)
[2019-07-02] MEDS: metFORMIN HCL 500 MG TABLET (FP) PO SCH ×2 (06:30→17:38)
[2019-07-02] MEDS: chlordiazePOXIDE 5 MG CAPSULE PO SCH ×3 (06:30→22:11)
[2019-07-02] MEDS: ASPIRIN 81 MG CHEWABLE TABLETS PO SCH (10:48)
[2019-07-02] MEDS: LISINOPRIL 10 MG TABLET (FP) PO SCH (10:48)
[2019-07-02] MEDS: PRENATAL VITAMINS W/ FOLIC ACID TABLET (FP) PO SCH (10:48)
--- NOTE | 2019-07-02 11:23 | PN ---
S CIWA - CIWA Score Nausea/Vomitin-No Nausea/No Vomiting Muscle Tremors: 2 Anxiety: 3 Agitation: 3 Paroxysmal Sweats: 2 Orientation: 0-Oriented Tacttile Disturbances: 0-None Auditory Disturbances: 0-None Visual Disturbances: 0-None Headache: 0-None Present CIWA-Ar Total Score: 10 BHS Progress Note (SOAP) Subjective: sweats shakes interrupted sleep body aches Objective: 07/02/19 11:23 Vital Signs Temperature 98.1 F 07/02/19 11:00 Pulse Rate 78 07/02/19 11:00 Respiratory Rate 18 07/02/19 11:00 Blood Pressure 132/84 07/02/19 11:00 O2 Sat by Pulse Oximetry (%) Laboratory Tests 06/30/19 07/01/19 07/01/19 17:26 05:41 07:15 WBC 5.1 RBC 4.13 Hgb 12.2 Hct 36.7 MCV 88.9 MCH 29.6 MCHC 33.3 RDW 14.0 D Plt Count 366 MPV 7.9 Sodium Potassium Chloride Carbon Dioxide Anion Gap BUN Creatinine Est GFR (CKD-EPI)AfAm Est GFR (CKD-EPI)NonAf POC Glucometer 160 174 Random Glucose Calcium Total Bilirubin AST ALT Alkaline Phosphatase Total Protein Albumin RPR Titer 07/01/19 07/01/19 07/01/19 07:15 07:15 16:19 WBC RBC Hgb Hct MCV MCH MCHC RDW Plt Count MPV Sodium 139 Potassium 4.3 Chloride 108 H Carbon Dioxide 25 Anion Gap 6 L BUN 10.0 Creatinine 0.9 Est GFR (CKD-EPI)AfAm 110.27 Est GFR (CKD-EPI)NonAf 95.14 POC Glucometer 121 Random Glucose 142 H Calcium 8.7 Total Bilirubin 0.2 AST 14 L ALT 43 Alkaline Phosphatase 87 Total Protein 6.4 Albumin 3.1 L RPR Titer Nonreactive 07/02/19 06:27 WBC RBC Hgb Hct MCV MCH MCHC RDW Plt Count MPV Sodium Potassium Chloride Carbon Dioxide Anion Gap BUN Creatinine Est GFR (CKD-EPI)AfAm Est GFR (CKD-EPI)NonAf POC Glucometer 171 Random Glucose Calcium Total Bilirubin AST ALT Alkaline Phosphatase Total Protein Albumin RPR Titer aaox3 ambulating no acute distress Assessment: 07/02/19 11:24 withdrawals Plan: continue detox increase fluids
[2019-07-02] MEDS: THIAMINE HCL 100 MG TABLET (FP) PO SCH (22:11)
[2019-07-02] MEDS: ATORVASTATIN CA 20 MG TABLET (FP) PO SCH (22:11)
[2019-07-03] MEDS ORDERED: chlordiazePOXIDE HCL 10 MG CAPSULE PO PRN
[2019-07-03] MEDS ORDERED: chlordiazePOXIDE HCL 10 MG CAPSULE PO SCH (05:00)
[2019-07-03] MEDS: metFORMIN HCL 500 MG TABLET (FP) PO SCH (07:03)
[2019-07-03 08:53] VITALS: BP 118/63; PULSE 75; TEMP 98.1
--- NOTE | 2019-07-03 11:24 | PN ---
[facility] Progress Note Note: pt states he wants to leave now because he wants to smoke a cigarette. pt was offered nicotine cessation (patch and or gum) pt refused. Pt was advised to stay and complete his detox and prevent relapse, seizures, DTs , OD and or loss, pt chose to sign out AMA.
--- NOTE | 2019-07-03 11:29 | DS ---
[facility] Detox Discharge Summary Admission Date: 06/30/19 - History Present History: Alcohol Dependence, Cocaine Dependence - Physical Exam Results Vital Signs: Vital Signs Temperature 98.1 F 07/03/19 05:00 Pulse Rate 75 07/03/19 05:00 Respiratory Rate 07/03/19 05:00 Blood Pressure 118/63 07/03/19 05:00 O2 Sat by Pulse Oximetry (%) Pertinent Admission Physical Exam Findings: Vital Signs Temperature 98.1 F 07/03/19 05:00 Pulse Rate 75 07/03/19 05:00 Respiratory Rate 07/03/19 05:00 Blood Pressure 118/63 07/03/19 05:00 O2 Sat by Pulse Oximetry (%) Laboratory Tests 06/30/19 07/01/19 07/01/19 17:26 05:41 07:15 WBC 5.1 RBC 4.13 Hgb 12.2 Hct 36.7 MCV 88.9 MCH 29.6 MCHC 33.3 RDW 14.0 D Plt Count 366 MPV 7.9 Sodium Potassium Chloride Carbon Dioxide Anion Gap BUN Creatinine Est GFR (CKD-EPI)AfAm Est GFR (CKD-EPI)NonAf POC Glucometer 160 174 Random Glucose Calcium Total Bilirubin AST ALT Alkaline Phosphatase Total Protein Albumin RPR Titer 07/01/19 07/01/19 07/01/19 07:15 07:15 16:19 WBC RBC Hgb Hct MCV MCH MCHC RDW Plt Count MPV Sodium 139 Potassium 4.3 Chloride 108 H Carbon Dioxide 25 Anion Gap 6 L BUN 10.0 Creatinine 0.9 Est GFR (CKD-EPI)AfAm 110.27 Est GFR (CKD-EPI)NonAf 95.14 POC Glucometer 121 Random Glucose 142 H Calcium 8.7 Total Bilirubin 0.2 AST 14 L ALT 43 Alkaline Phosphatase 87 Total Protein 6.4 Albumin 3.1 L RPR Titer Nonreactive 07/02/19 07/02/19 07/03/19 06:27 16:46 06:38 WBC RBC Hgb Hct MCV MCH MCHC RDW Plt Count MPV Sodium Potassium Chloride Carbon Dioxide Anion Gap BUN Creatinine Est GFR (CKD-EPI)AfAm Est GFR (CKD-EPI)NonAf POC Glucometer 171 120 127 Random Glucose Calcium Total Bilirubin AST ALT Alkaline Phosphatase Total Protein Albumin RPR Titer aaox3 ambulating no acute distress - Treatment Hospital Course: Discharged Condition Good, Rehab Referral Accepted - Medication Discharge Medications: Ambulatory Orders Atorvastatin Ca [Lipitor] 20 mg PO HS #30 tablet 03/20/17 - Diagnosis (1) Alcohol dependence with uncomplicated withdrawal Current Visit: Yes Status: Chronic (2) Bipolar disorder Current Visit: Yes Status: Chronic Qualifiers: Active/Remission status: remission status unspecified Qualified Code(s): F31.9 - Bipolar disorder, unspecified (3) HLD (hyperlipidemia) Current Visit: Yes Status: Chronic Qualifiers: Hyperlipidemia type: mixed hyperlipidemia Qualified Code(s): E78.2 - Mixed hyperlipidemia (4) Low back pain Current Visit: Yes Status: Chronic (5) Obesity Current Visit: Yes Status: Chronic Qualifiers: Obesity type: unspecified obesity type (6) Subchronic schizoaffective disorder Current Visit: No Status: Acute (7) Cocaine dependence, uncomplicated Current Visit: Yes Status: Chronic (8) Nicotine dependence Current Visit: Yes Status: Chronic Qualifiers: Nicotine product type: cigarettes Substance use status: in withdrawal Qualified Code(s): F17.213 - Nicotine dependence, cigarettes, with withdrawal - AMA Did Patient Leave Against Medical Advice: Yes
[2019-07-04] MEDS ORDERED: chlordiazePOXIDE HCL 10 MG CAPSULE PO ONE (05:00)
== END 2019-07-03 11:30 | disposition left against medical advice (07) | DRG 770 ==
LOC: YASAS 10:42 → Y6N 15:45
PROVIDERS: ADMIT Allergy & Immunology; ATTEND Allergy & Immunology
PROC: HZ2ZZZZ Detoxification Services for Substance Abuse Treatment (ICD-10-PCS; principal; 2019-06-30)
DX: F10.230 Alcohol dependence with withdrawal, uncomplicated (principal); F14.20 Cocaine dependence, uncomplicated; F17.213 Nicotine dependence, cigarettes, with withdrawal; F31.9 Bipolar disorder, unspecified; J45.909 Unspecified asthma, uncomplicated; I10 Essential (primary) hypertension; E78.2 Mixed hyperlipidemia; M54.5 Low back pain; G89.29 Other chronic pain; E11.9 Type 2 diabetes mellitus without complications; R77.0 Abnormality of albumin; E66.9 Obesity, unspecified; Z68.35 Body mass index [BMI] 35.0-35.9, adult; Z86.69 Personal history of other diseases of the nervous system and sense organs; Z91.018 Allergy to other foods; Z59.0 Homelessness
CPT/HCPCS: 36415; 80053; 82962; 85027; 86593; G0008; Q2036

== ENCOUNTER 2020-02-15 14:24 | Inpatient (IN) | payer OTHER ==
--- NOTE | 2020-02-15 16:37 | HP ---
CIWA Score Nausea/Vomitin Muscle Tremors: 3 Anxiety: 3 Agitation: 3 Paroxysmal Sweats: 3 Orientation: 0-Oriented Tacttile Disturbances: 0-None Auditory Disturbances: 0-None Visual Disturbances: 0-None Headache: 4-Moderately Severe CIWA-Ar Total Score: 18 - Admission Criteria OASAS Guidelines: Admission for Medically Managed Detox: Requires at least one of the followin. CIWA greater than 12 2. Seizures within the past 24 hours 3. Delirium tremens within the past 24 hours 4. Hallucinations within the past 24 hours 5. Acute intervention needed for co occurring medical disorder 6. Acute intervention needed for co occurring psychiatric disorder 7. Severe withdrawal that cannot be handled at a lower level of care (continued vomiting, continued diarrhea, abnormal vital signs) requiring intravenous medication and/or fluids 8. Admitting History and Physical - Smoking History Smoking history: Current every day smoker Have you smoked in the past 12 months: Yes Aproximately how many cigarettes per day: 5 - Alcohol/Substance Use Hx Alcohol Use: Yes Admission ROS [facility] Chief Complaint: Seeking admission to detox from alcohol Allergies/Adverse Reactions: Allergies Allergy/AdvReac Type Severity Reaction Status Date / Time turkey Allergy Severe Hives Verified 09/06/19 13:16 No Known Drug Allergies Allergy Verified 09/10/19 14:58 PASTA Allergy Severe Hives Uncoded 09/06/19 13:16 red sauce Allergy Severe Hives Uncoded 09/06/19 13:16 History of Present Illness: 55 years old male with a long history of alcohol dependence is seeking admission to detox. He has been admitted multiple times to [facility] his last admission was for the period 09/05/2028-09/11/2019. He reports that he relapsed [birth year] his birthday February 01 2022. He reports that he drinks 3 pints of Vodka and 1 x 6 pack of Henneken beer daily. He has medical history of DM type 2, hypertension, asthma,hyperlipidemia, obesity, bilateral knee arthritis and psych. history of depression and schizophrenia. He denies suicidal ideation at this time. He is unemployed on SSI, homeless and denies legal issues. 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 Exam Limitations: No Limitations - Ebola screening Have you traveled outside of the country in the last 21 days: No Have you had contact with anyone from an Ebola affected area: No Have you been sick,other than usual withdrawal symptoms: No - Review of Systems Constitutional: Chills, Night Sweats, Changes in sleep EENT: reports: No Symptoms Reported Respiratory: reports: No Symptoms reported Cardiac: reports: No Symptoms Reported GI: reports: No Symptoms Reported, Nausea, Poor Fluid Intake, Abdominal cramping : reports: No Symptoms Reported Musculoskeletal: reports: Other (bilateral knee pain) Integumentary: reports: Dryness Neuro: reports: Headache, Tremors Endocrine: reports: No Symptoms Reported Hematology: reports: No Symptoms Reported Psychiatric: reports: Mood/Affect Appropiate, Orientated x3, Anxious Other Systems: Reviewed and Negative Patient History - Patient Medical History Hx Anemia: No Hx Asthma: Yes (Albuterol) Hx Chronic Obstructive Pulmonary Disease (COPD): No Hx Cancer: No Hx Cardiac Disorders: No Hx Congestive Heart Failure: No Hx Hypertension: Yes (Not on medication) Hx Hypercholesterolemia: Yes (Not on medication) Hx Pacemaker: No HX Cerebrovascular Accident: No Hx Seizures: No Hx Dementia: No Hx Diabetes: Yes (Type 2- Metformin) Hx Gastrointestinal Disorders: No Hx Liver Disease: No Hx Genitourinary Disorders: No Hx Sexually Transmitted Disorders: No Hx Renal Disease (ESRD): No Hx Thyroid Disease: No Hx Human Immunodeficiency Virus (HIV): No (Negative 2019) Hx Hepatitis C: No Hx Depression: Yes Hx Suicide Attempt: No (Denies suicidal ideation at this time) Hx Bipolar Disorder: No Hx Schizophrenia: Yes (schizo-affective disorder) - Patient Surgical History Past Surgical History: No Hx Neurologic Surgery: No Hx Cataract Extraction: No Hx Cardiac Surgery: No Hx Lung Surgery: No Hx Abdominal Surgery: No Hx Appendectomy: No Hx Cholecystectomy: No Hx Genitourinary Surgery: No Hx Orthopedic Surgery: No Anesthesia Reaction: No - PPD History Previous Implant?: Yes Documented Results: Negative w/proof Implanted On Prior R Admission?: Yes Date: 07/02/19 Results: negative PPD to be Administered?: No - Reproductive History Patient is a Female of Child Bearing Age (11 -55 yrs old): No (Male) - Smoking Cessation Smoking history: Current every day smoker Have you smoked in the past 12 months: Yes Aproximately how many cigarettes per day: 5 Hx Chewing Tobacco Use: No Initiated information on smoking cessation: Yes 'Breaking Loose' booklet given: 02/15/20 - Substance & Tx. History Hx Alcohol Use: Yes Hx Substance Use: Yes Substance Use Type: Alcohol, Cocaine Hx Substance Use Treatment: Yes ([facility]) - Substances abused Alcohol Substance route: Oral Frequency: Daily Amount used: 3 pints of Vodka and 1 x 6 pack of Henneken beer Age of first use: 11 Date of last use: 02/15/20 Admission Physical Exam [facility] - Physical General Appearance: Yes: Moderate Distress, Tremorous, Anxious HEENTM: Yes: Within Normal Limits Respiratory: Yes: Within Normal Limits Neck: Yes: Within Normal Limits Breast: Yes: Breast Exam Deferred Cardiology: Yes: Tachycardia Abdominal: Yes: Within Normal Limits Genitourinary: Yes: Within Normal Limits Musculoskeletal: Yes: Other (bilateral knee pain) Extremities: Yes: Within Normal Limits, Tremors 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: Within Normal Limits Integumentary: Yes: Within Normal Limits Lymphatic: Yes: Within Normal Limits - Diagnostic (1) Hypertension Current Visit: Yes Status: Chronic Qualifiers: Hypertension type: essential hypertension Qualified Code(s): I10 - Essential (primary) hypertension (2) Arthritis of both knees Current Visit: Yes Status: Chronic (3) Alcohol dependence with uncomplicated withdrawal Current Visit: Yes Status: Acute (4) Asthma Current Visit: Yes Status: Chronic Qualifiers: Asthma severity: mild Asthma persistence: intermittent Asthma complication type: with status asthmaticus Qualified Code(s): J45.22 - Mild intermittent asthma with status asthmaticus (5) Bipolar disorder Current Visit: No Status: Chronic Qualifiers: Active/Remission status: remission status unspecified Qualified Code(s): F31.9 - Bipolar disorder, unspecified (6) Cocaine dependence, uncomplicated Current Visit: Yes Status: Chronic (7) DMII (diabetes mellitus, type 2) Current Visit: Yes Status: Chronic Qualifiers: Diabetes mellitus shelter insulin use: without shelter use Diabetes mellitus complication status: without complication Qualified Code(s): E11.9 - Type 2 diabetes mellitus without complications (8) HLD (hyperlipidemia) Current Visit: Yes Status: Chronic Qualifiers: Hyperlipidemia type: mixed hyperlipidemia Qualified Code(s): E78.2 - Mixed hyperlipidemia (9) Nicotine dependence Current Visit: Yes Status: Chronic Qualifiers: Nicotine product type: cigarettes Substance use status: uncomplicated Qualified Code(s): F17.210 - Nicotine dependence, cigarettes, uncomplicated (10) Obesity Current Visit: Yes Status: Chronic Qualifiers: Obesity type: unspecified obesity type (11) Schizoaffective disorder Current Visit: Yes Status: Chronic Cleared for Admission S - Detox or Rehab [facility] Level of Care: Medically Managed Detox Regimen/Protocol: Librium Claeared for Rehab Admission: No Breathalyzer - Breathalyzer Breathalyzer: 0.019 Urine Drug Screen - Test Device Lot number: [id number] Expiration date: 02/17/21 - Control Is test valid?: Yes - Results Drug screen NEGATIVE: No Urine drug screen results: BZO-Benzodiazepines Inpatient Rehab Admission - Rehab Decision to Admit Inpatient rehab admission?: No
[2020-02-15 16:52] VITALS: BMI 30.7
[2020-02-15] MEDS ORDERED: MAGNESIUM HYDROX 2400MG/30ML ORAL SUSPENSION 30 ML CUP PO PRN (16:54)
[2020-02-15] MEDS ORDERED: MAGNESIUM CITRATE 300 ML BOTTLE PO PRN (16:54)
[2020-02-15] MEDS ORDERED: ACETAMINOPHEN 325 MG TABLET (FP) PO PRN ×2 (16:54)
[2020-02-15] MEDS ORDERED: chlordiazePOXIDE HCL 25 MG CAPSULE PO PRN (16:54)
[2020-02-15] MEDS ORDERED: MENTHOL/PHENOL 1 EACH UD MM PRN (16:54)
[2020-02-15] MEDS ORDERED: IBUPROFEN 400 MG TABLET (FP) PO PRN (16:54)
[2020-02-15] MEDS ORDERED: METHOCARBAMOL 500 MG TABLET PO PRN (16:54)
[2020-02-15] MEDS ORDERED: BISMUTH SUBSALICYLATE 524 MG/30 ML UD PO PRN (16:54)
[2020-02-15] MEDS ORDERED: ONDANSETRON *ODT* 4 MG TABLET SL ONE (16:54)
[2020-02-15] MEDS ORDERED: MAG HYDROX/AL HYDROX/SIMETH 30 ML UNIT-DOSE CUP PO PRN (16:54)
[2020-02-15] MEDS ORDERED: NICOTINE POLACRILEX 2 MG GUM BUC PRN (16:54)
[2020-02-15] MEDS ORDERED: ALBUTEROL SO4 HFA INHALER IH PRN (16:57)
[2020-02-15] MEDS: MELATONIN 5 MG TABLETS PO SCH (22:38)
[2020-02-15] MEDS: THIAMINE HCL 100 MG TABLET (FP) PO SCH (22:38)
[2020-02-15] MEDS: hydrOXYzine PAMOATE 25 MG CAPSULE (FP) PO PRN (22:38)
[2020-02-15] MEDS: chlordiazePOXIDE HCL 25 MG CAPSULE PO SCH (22:45)
[2020-02-16] MEDS: chlordiazePOXIDE HCL 25 MG CAPSULE PO SCH ×4 (06:36→22:32)
[2020-02-16] MEDS: metFORMIN HCL 500 MG TABLET (FP) PO SCH ×2 (06:38→18:36)
--- NOTE | 2020-02-16 09:31 | PN ---
S CIWA - CIWA Score Nausea/Vomitin-No Nausea/No Vomiting Muscle Tremors: 2 Anxiety: 3 Agitation: 1-Slight > Activity Paroxysmal Sweats: 3 Orientation: 0-Oriented Tacttile Disturbances: 0-None Auditory Disturbances: 0-None Visual Disturbances: 0-None Headache: 2-Mild CIWA-Ar Total Score: 11 BHS Progress Note (SOAP) Subjective: c/o headache, anxiety, irritability, shakes, and sweats. Objective: 02/16/20 09:30 Vital Signs 02/16/20 02/16/20 05:21 08:59 Temperature 98.1 F 97.3 F L Pulse Rate 58 L 65 Respiratory 19 18 Rate Blood Pressure 108/73 120/75 O2 Sat by Pulse 99 Oximetry (%) Labs pending. Assessment: 02/16/20 09:31 AOX3, in no acute respiratory distress. Full ROM, ambulating in the unit. Withdrawal symptoms. Plan: continue detox.
--- NOTE | 2020-02-16 10:11 | EKG ---
Test Reason : Blood Pressure : / mmHG Vent. Rate : 104 BPM Atrial Rate : 104 BPM P-R Int : 154 ms QRS Dur : 076 ms QT Int : 346 ms P-R-T Axes : 062 023 029 degrees QTc Int : 454 ms SINUS TACHYCARDIA OTHERWISE NORMAL ECG WHEN COMPARED WITH ECG OF 25-DEC-2017 18:54, VENT. RATE HAS INCREASED BY 37 BPM Confirmed by ANT JONES MD ([id number]) on 02/16/2020 10:11:06 AM Referred By: Confirmed By:ANT JONES MD
[2020-02-16] MEDS: NICOTINE 14 MG/24 HOURS TOPICAL PATCH TD SCH (10:35)
[2020-02-16] MEDS: hydrOXYzine PAMOATE 25 MG CAPSULE (FP) PO PRN (10:35)
[2020-02-16] MEDS: PRENATAL VITAMINS W/ FOLIC ACID TABLET (FP) PO SCH (10:35)
[2020-02-16] MEDS: ASPIRIN 81 MG CHEWABLE TABLETS PO SCH (10:35)
[2020-02-16 12:28] LABS: HEMATOCRIT 39.6 % (35.4-49); HEMOGLOBIN 13.3 GM/dL (11.7-16.9); MCH 30.5 pg (25.7-33.7); MCHC 33.5 g/dl (32.0-35.9); MEAN PLT VOLUME 8.3 fl (7.5-11.1); PLATELET COUNT 265 K/MM3 (134-434); RBC 4.35 M/mm3 (4.00-5.60); RDW 14.6 % (11.9-15.9); WHITE BLOOD COUNT 4.1 K/mm3 (4.0-10.0)
[2020-02-16 12:43] LABS: ALBUMIN 3.3 g/dl (3.4-5.0); BILIRUBIN,TOTAL 0.9 mg/dL (0.2-1); CALCIUM 8.8 mg/dL (8.5-10.1); CREATININE 0.9 mg/dL (0.55-1.3); TOT PROT 6.4 g/dl (6.4-8.2)
--- NOTE | 2020-02-16 13:32 | CONSULT ---
[facility] Psychiatric Consult - Data Date of interview: 02/16/20 Admission source: [facility] Identifying data: Readmission to [facility] at [address] [place] [address] for this 55 y/o AA male, self-referred for detoxification treatment. JERRELL issues : alcohol, cocaine, nicotine. Patient is , a father of four (three sons + one daughter), homeless, unemployed and supported on SSI benefits (self-report). Substance Abuse History: Smoking history: Current every day smoker. Have you smoked in the past 12 months: Yes. Aproximately how many cigarettes per day: 5. Hx Chewing Tobacco Use: No. Initiated information on smoking cessation: Yes. 'Breaking Loose' booklet given: 02/15/20. - Substance & Tx. History. Hx Alcohol Use: Yes. Hx Substance Use: Yes. Substance Use Type: Alcohol, Cocaine. Hx Substance Use Treatment: Yes ([facility]). - Substances abused. Alcohol. Substance route: Oral. Frequency: Daily. Amount used: 3 pints of Vodka and 1 x 6 pack of Henneken beer. Age of first use: 11. Date of last use: 02/15/20 Medical History: Medical history remains remarkable for history of diabetes mellitus, dyslipidemia, hypertension, osteoarthritis, chronic lumbar pain, bronchial asthma, coronary artery disease, hypertension and dyspepsia. Psychiatric History: Extensive history of mental illness (onset at age 8 : behavioral disturbances + auditory hallucinations). History of multiple psychiatric hospitalizations ([facility], [facility], [facility], [facility]). Diagnosed with Schizophrenia (revised to schizoaffective disorder, years later). Mr Jimenez is a marginally cooperative historian. He states that he cannot recall the names of his psychotropic medications (reportedly not taken for past THREE months). Patient has been prescribed various medications over the years which include depakote, zoloft, trazodone, seroquel, risperdal and other unnamed molecules. Chronically non-adherent to medications. Patient states that he currently reports for psy chiatric OPD care at a program called [facility], located in [place], [place]. In this interview, he denies history of suicide attempts (which contradicts [facility] records indicative of history of multiple suicide attempts via various means : wrist-cutting + ideation to jump into traffic in 2007). Physical/Sexual Abuse/Trauma History: Patient denies. Additional Comment: Urine drug screen results: BZO-Benzodiazepines. Noted. Mental Status Exam - Mental Status Exam Alert and Oriented to: Time, Place, Person Cognitive Function: Good Patient Appearance: Disheveled Mood: Withdrawn Affect: Mood Congruent, Constricted Patient Behavior: Fatigued, Appropriate, Cooperative (superficially cooperative) Speech Pattern: Clear, Appropriate Voice Loudness: Normal Thought Process: Goal Oriented Thought Disorder: Not Present Hallucinations: Denies Suicidal Ideation: Denies Homicidal Ideation: Denies Insight/Judgement: Poor Sleep: Well Appetite: Good Gait/Station: Normal Psychiatric Findings - Problem List ([place] 1, 2,3) (1) Alcohol dependence with uncomplicated withdrawal Current Visit: Yes Status: Acute (2) Nicotine dependence Current Visit: Yes Status: Chronic Qualifiers: Nicotine product type: cigarettes Substance use status: uncomplicated Qualified Code(s): F17.210 - Nicotine dependence, cigarettes, uncomplicated (3) Schizoaffective disorder Current Visit: Yes Status: Chronic (4) Substance induced mood disorder Current Visit: Yes Status: Chronic (5) Non-compliance Current Visit: Yes Status: Chronic - Initial Treatment Plan Initial Treatment Plan: Psychoeducation. Sleep hygiene. Detoxification Patient declines to take any psychotropic medication other than formulations necessary for detoxification protocol. Observation.
[2020-02-16] MEDS: THIAMINE HCL 100 MG TABLET (FP) PO SCH (22:32)
[2020-02-16] MEDS: MELATONIN 5 MG TABLETS PO SCH (22:32)
[2020-02-17] MEDS: chlordiazePOXIDE HCL 25 MG CAPSULE PO SCH ×4 (05:37→22:43)
[2020-02-17] MEDS: metFORMIN HCL 500 MG TABLET (FP) PO SCH ×2 (07:20→18:23)
[2020-02-17] MEDS: PRENATAL VITAMINS W/ FOLIC ACID TABLET (FP) PO SCH (10:26)
[2020-02-17] MEDS: ASPIRIN 81 MG CHEWABLE TABLETS PO SCH (10:26)
[2020-02-17] MEDS: NICOTINE 14 MG/24 HOURS TOPICAL PATCH TD SCH (10:27)
--- NOTE | 2020-02-17 10:31 | PN ---
S CIWA - CIWA Score Nausea/Vomitin-No Nausea/No Vomiting Muscle Tremors: 3 Anxiety: 3 Agitation: 0-Normal Activity Paroxysmal Sweats: 2 Orientation: 0-Oriented Tacttile Disturbances: 0-None Auditory Disturbances: 0-None Visual Disturbances: 0-None Headache: 1-Very Mild CIWA-Ar Total Score: 9 [facility] Progress Note (SOAP) Subjective: 55 years old male was admitted on 02/15/20 for alcohol withdrawal sx management treating with [facility] ate breakfast in room social with peers in day room mr hernandez prefers to go [facility] for alcohol abuse treatment Objective: 02/17/20 10:32 Vital Signs - 24 hr 02/16/20 02/16/20 02/16/20 12:57 16:51 20:50 Temperature 97.7 F 97.9 F 97.6 F Pulse Rate 62 68 80 Respiratory 20 20 18 Rate Blood Pressure 108/70 123/71 153/100 O2 Sat by Pulse 99 99 Oximetry (%) 02/17/20 02/17/20 05:32 09:22 Temperature 98.1 F 97.5 F L Pulse Rate 74 70 Respiratory 18 18 Rate Blood Pressure 115/76 134/91 O2 Sat by Pulse 96 Oximetry (%) Laboratory Tests 02/16/20 02/16/20 02/16/20 06:37 07:50 07:50 WBC 4.1 RBC 4.35 Hgb 13.3 Hct 39.6 MCV 91.0 MCH 30.5 MCHC 33.5 RDW 14.6 Plt Count 265 D MPV 8.3 Sodium Potassium Chloride Carbon Dioxide Anion Gap BUN Creatinine Est GFR (CKD-EPI)AfAm Est GFR (CKD-EPI)NonAf POC Glucometer 107 Random Glucose Calcium Total Bilirubin AST ALT Alkaline Phosphatase Total Protein Albumin Syphilis Serology Non-reactive 02/16/20 02/16/20 02/17/20 07:50 16:36 05:38 WBC RBC Hgb Hct MCV MCH MCHC RDW Plt Count MPV Sodium 143 Potassium 4.0 Chloride 110 H Carbon Dioxide 26 Anion Gap 6 L BUN 13.0 Creatinine 0.9 Est GFR (CKD-EPI)AfAm 109.50 Est GFR (CKD-EPI)NonAf 94.48 POC Glucometer 135 112 Random Glucose 96 Calcium 8.8 Total Bilirubin 0.9 AST 22 ALT 34 Alkaline Phosphatase 62 Total Protein 6.4 Albumin 3.3 L Syphilis Serology 02/17/20 10:32 covid pending Assessment: 02/17/20 10:32 alcohol withdrawal Plan: [facility]
[2020-02-17] MEDS: MELATONIN 5 MG TABLETS PO SCH (22:43)
[2020-02-17] MEDS: THIAMINE HCL 100 MG TABLET (FP) PO SCH (22:43)
[2020-02-18] MEDS ORDERED: chlordiazePOXIDE HCL 10 MG CAPSULE PO PRN
[2020-02-18] MEDS: chlordiazePOXIDE HCL 10 MG CAPSULE PO SCH ×4 (05:13→23:03)
[2020-02-18] MEDS: metFORMIN HCL 500 MG TABLET (FP) PO SCH ×2 (07:02→17:41)
[2020-02-18] MEDS: ASPIRIN 81 MG CHEWABLE TABLETS PO SCH (10:15)
[2020-02-18] MEDS: PRENATAL VITAMINS W/ FOLIC ACID TABLET (FP) PO SCH (10:15)
[2020-02-18] MEDS: NICOTINE 14 MG/24 HOURS TOPICAL PATCH TD SCH (10:16)
--- NOTE | 2020-02-18 14:24 | PN ---
S CIWA - CIWA Score Nausea/Vomitin-No Nausea/No Vomiting Muscle Tremors: 1-None Visible, but [place] Anxiety: 1-Mildly Anxious Agitation: 1-Slight > Activity Paroxysmal Sweats: No Perspiration Orientation: 0-Oriented Tacttile Disturbances: 0-None Auditory Disturbances: 0-None Visual Disturbances: 1-Very Mild Sensitivity Headache: 1-Very Mild CIWA-Ar Total Score: 5 BHS Progress Note (SOAP) Subjective: 55 years old male was admitted on 02/15/20 for alcohol withdrawal sx management treating with [facility] mr hernandez prefers to leave the detox tomorrow and continue alcohol abuse treatment at [facility] mr hernandez determines to maintain sober through support networking in [place] Objective: 02/18/20 14:33 Vital Signs - 24 hr 02/17/20 02/17/20 02/18/20 16:33 20:18 05:08 Temperature 97.3 F L 98.8 F 97.2 F L Pulse Rate 70 78 72 Respiratory 18 18 18 Rate Blood Pressure 150/94 134/89 105/69 O2 Sat by Pulse 99 97 Oximetry (%) 02/18/20 02/18/20 08:41 12:38 Temperature 96.9 F L 97.2 F L Pulse Rate 82 71 Respiratory 18 18 Rate Blood Pressure 134/94 122/79 O2 Sat by Pulse 98 Oximetry (%) Laboratory Tests 02/15/20 02/16/20 02/16/20 17:00 06:37 07:50 WBC RBC Hgb Hct MCV MCH MCHC RDW Plt Count MPV Sodium Potassium Chloride Carbon Dioxide Anion Gap BUN Creatinine Est GFR (CKD-EPI)AfAm Est GFR (CKD-EPI)NonAf POC Glucometer 107 Random Glucose Calcium Total Bilirubin AST ALT Alkaline Phosphatase Total Protein Albumin Syphilis Serology Non-reactive COVID-19 ([facility]) Not detected 02/16/20 02/16/20 02/16/20 07:50 07:50 16:36 WBC 4.1 RBC 4.35 Hgb 13.3 Hct 39.6 MCV 91.0 MCH 30.5 MCHC 33.5 RDW 14.6 Plt Count 265 D MPV 8.3 Sodium 143 Potassium 4.0 Chloride 110 H Carbon Dioxide 26 Anion Gap 6 L BUN 13.0 Creatinine 0.9 Est GFR (CKD-EPI)AfAm 109.50 Est GFR (CKD-EPI)NonAf 94.48 POC Glucometer 135 Random Glucose 96 Calcium 8.8 Total Bilirubin 0.9 AST 22 ALT 34 Alkaline Phosphatase 62 Total Protein 6.4 Albumin 3.3 L Syphilis Serology COVID-19 ([facility]AWRD) 02/17/20 02/18/20 05:38 05:14 WBC RBC Hgb Hct MCV MCH MCHC RDW Plt Count MPV Sodium Potassium Chloride Carbon Dioxide Anion Gap BUN Creatinine Est GFR (CKD-EPI)AfAm Est GFR (CKD-EPI)NonAf POC Glucometer 112 126 Random Glucose Calcium Total Bilirubin AST ALT Alkaline Phosphatase Total Protein Albumin Syphilis Serology COVID-19 ([facility]) lab noted Assessment: 02/18/20 14:34 alcohol withdrawal Plan: [facility]
[2020-02-18] MEDS ORDERED: ATORVASTATIN CA 20 MG TABLET (FP) PO SCH (22:00)
[2020-02-18] MEDS: MELATONIN 5 MG TABLETS PO SCH (23:03)
[2020-02-18] MEDS: THIAMINE HCL 100 MG TABLET (FP) PO SCH (23:03)
[2020-02-19] MEDS ORDERED: chlordiazePOXIDE HCL 10 MG CAPSULE PO SCH (05:00)
[2020-02-19 06:24] VITALS: BP 139/92; PULSE 82; TEMP 98.1
[2020-02-19] MEDS: metFORMIN HCL 500 MG TABLET (FP) PO SCH (06:26)
--- NOTE | 2020-02-19 06:55 | DS ---
[facility] Detox Discharge Summary Admission Date: 02/15/20 Discharge Date: 02/19/20 - History Present History: Alcohol Dependence, Cocaine Dependence Pertinent Past History: HTN OA ASTHMA BIPOLAR DM HTN NICOTINE DEP - Physical Exam Results Vital Signs: Vital Signs Temperature 98.1 F 02/19/20 06:24 Pulse Rate 82 02/19/20 06:24 Respiratory Rate 18 02/19/20 06:24 Blood Pressure 139/92 02/19/20 06:24 O2 Sat by Pulse Oximetry (%) 98 02/19/20 06:24 Pertinent Admission Physical Exam Findings: WITHDRAWAL SX'S Laboratory Tests 02/15/20 02/16/20 02/16/20 17:00 06:37 07:50 WBC RBC Hgb Hct MCV MCH MCHC RDW Plt Count MPV Sodium Potassium Chloride Carbon Dioxide Anion Gap BUN Creatinine Est GFR (CKD-EPI)AfAm Est GFR (CKD-EPI)NonAf POC Glucometer 107 Random Glucose Calcium Total Bilirubin AST ALT Alkaline Phosphatase Total Protein Albumin Syphilis Serology Non-reactive COVID-19 ([facility]) Not detected 02/16/20 02/16/20 02/16/20 07:50 07:50 16:36 WBC 4.1 RBC 4.35 Hgb 13.3 Hct 39.6 MCV 91.0 MCH 30.5 MCHC 33.5 RDW 14.6 Plt Count 265 D MPV 8.3 Sodium 143 Potassium 4.0 Chloride 110 H Carbon Dioxide 26 Anion Gap 6 L BUN 13.0 Creatinine 0.9 Est GFR (CKD-EPI)AfAm 109.50 Est GFR (CKD-EPI)NonAf 94.48 POC Glucometer 135 Random Glucose 96 Calcium 8.8 Total Bilirubin 0.9 AST 22 ALT 34 Alkaline Phosphatase 62 Total Protein 6.4 Albumin 3.3 L Syphilis Serology COVID-19 ([facility]) 02/17/20 02/18/20 02/18/20 05:38 05:14 16:19 WBC RBC Hgb Hct MCV MCH MCHC RDW Plt Count MPV Sodium Potassium Chloride Carbon Dioxide Anion Gap BUN Creatinine Est GFR (CKD-EPI)AfAm Est GFR (CKD-EPI)NonAf POC Glucometer 112 126 115 Random Glucose Calcium Total Bilirubin AST ALT Alkaline Phosphatase Total Protein Albumin Syphilis Serology COVID-19 ([facility]) - Treatment Hospital Course: Detox Protocol Followed, Detoxed Safely, Responded well, Discharged Condition Good, Rehab Referral Accepted Patient has Accepted a Rehab Referral to: [facility] Chemical Dependency Outpatient - Medication Discharge Medications: Ambulatory Orders Risperidone [Risperdal -] 1 mg PO DAILY 09/06/19 Albuterol Sulfate Inhaler - [Ventolin HFA Inhaler -] 2 inh PO Q4H PRN #1 inhaler 09/10/19 Aspirin [ASA -] 81 mg PO DAILY #30 tab.chew 09/10/19 Atorvastatin Ca [Lipitor] 20 mg PO HS #30 tablet 09/10/19 Atorvastatin Ca [Lipitor] 20 mg PO HS #30 tablet 09/10/19 Metformin HCl [Glucophage] 500 mg PO BID #60 tablet 09/10/19 metFORMIN HCL [Glucophage -] 500 mg PO BID@0700,1630 #60 tablet 09/10/19 Aripiprazole [Abilify -] 2 mg PO HS #30 tablet 09/11/19 Sertraline HCl [Zoloft -] 50 mg PO DAILY #30 tablet 09/11/19 - Diagnosis (1) Alcohol dependence with uncomplicated withdrawal Status: Resolved (2) Arthritis of both knees Status: Chronic (3) Asthma Status: Chronic Qualifiers: Asthma severity: mild Asthma persistence: intermittent Asthma complication type: with status asthmaticus Qualified Code(s): J45.22 - Mild intermittent asthma with status asthmaticus (4) Bipolar disorder Status: Chronic Qualifiers: Active/Remission status: remission status unspecified Qualified Code(s): F31.9 - Bipolar disorder, unspecified (5) Cocaine dependence, uncomplicated Status: Chronic (6) DMII (diabetes mellitus, type 2) Status: Chronic Qualifiers: Diabetes mellitus residential insulin use: without cop use Diabetes mellitus complication status: without complication Qualified Code(s): E11.9 - Type 2 diabetes mellitus without complications (7) HLD (hyperlipidemia) Status: Chronic Qualifiers: Hyperlipidemia type: mixed hyperlipidemia Qualified Code(s): E78.2 - Mixed hyperlipidemia (8) Hypertension Status: Chronic Qualifiers: Hypertension type: essential hypertension Qualified Code(s): I10 - Essential (primary) hypertension (9) Nicotine dependence Status: Chronic Qualifiers: Nicotine product type: cigarettes Substance use status: uncomplicated Qualified Code(s): F17.210 - Nicotine dependence, cigarettes, uncomplicated - AMA Did Patient Leave Against Medical Advice: No (30 MIN)
[2020-02-20] MEDS ORDERED: chlordiazePOXIDE HCL 10 MG CAPSULE PO ONE (05:00)
== END 2020-02-19 06:52 | disposition home or self-care (01) | DRG 774 ==
LOC: YASAS 14:24 → Y3N 16:49
PROVIDERS: ADMIT Allergy & Immunology; ATTEND Allergy & Immunology
PROC: HZ2ZZZZ Detoxification Services for Substance Abuse Treatment (ICD-10-PCS; principal; 2020-02-15)
DX: F10.230 Alcohol dependence with withdrawal, uncomplicated (principal); F14.20 Cocaine dependence, uncomplicated; F17.210 Nicotine dependence, cigarettes, uncomplicated; F25.9 Schizoaffective disorder, unspecified; F19.24 Other psychoactive substance dependence with psychoactive substance-induced mood disorder; F31.9 Bipolar disorder, unspecified; I25.10 Atherosclerotic heart disease of native coronary artery without angina pectoris; I10 Essential (primary) hypertension; J45.909 Unspecified asthma, uncomplicated; E11.9 Type 2 diabetes mellitus without complications; Z79.84 Long term (current) use of oral hypoglycemic drugs; M17.0 Bilateral primary osteoarthritis of knee; E78.5 Hyperlipidemia, unspecified; M54.5 Low back pain; E66.9 Obesity, unspecified; Z68.30 Body mass index [BMI] 30.0-30.9, adult; Z91.5 Personal history of self-harm; Z59.0 Homelessness; Z56.0 Unemployment, unspecified
CPT/HCPCS: 36415; 80053; 82962; 85027; 86780; 93005; 93010; Q0162; U0003

== ENCOUNTER 2021-09-14 13:24 | Inpatient (IN) | payer OTHER ==
[2021-09-14] MEDS ORDERED: MAG HYDROX/AL HYDROX/SIMETH 30 ML UNIT-DOSE CUP PO PRN (15:50)
[2021-09-14] MEDS ORDERED: NICOTINE 10 MG CARTRIDGE (INHALER) IH PRN (15:50)
[2021-09-14] MEDS ORDERED: ACETAMINOPHEN 325 MG TABLET (FP) PO PRN ×2 (15:50)
[2021-09-14] MEDS ORDERED: ONDANSETRON *ODT* 4 MG TABLET SL PRN (15:50)
[2021-09-14] MEDS ORDERED: METHOCARBAMOL 500 MG TABLET PO PRN (15:50)
[2021-09-14] MEDS ORDERED: MENTHOL/PHENOL 1 EACH UD MM PRN (15:50)
[2021-09-14] MEDS ORDERED: IBUPROFEN 400 MG TABLET (FP) PO PRN (15:50)
[2021-09-14] MEDS ORDERED: MAGNESIUM HYDROX 2400MG/30ML ORAL SUSPENSION 30 ML CUP PO PRN (15:50)
[2021-09-14] MEDS ORDERED: chlordiazePOXIDE HCL 25 MG CAPSULE PO PRN (15:50)
[2021-09-14] MEDS ORDERED: LOPERAMIDE HCL 2 MG CAPSULE PO PRN (15:50)
[2021-09-14] MEDS ORDERED: MAGNESIUM CITRATE 300 ML BOTTLE PO PRN (15:50)
[2021-09-14] MEDS ORDERED: BISMUTH SUBSALICYLATE 524 MG/30 ML PO PRN (15:50)
[2021-09-14] MEDS ORDERED: ALBUTEROL SO4 HFA INHALER IH PRN (15:56)
[2021-09-14 18:07] VITALS: BMI 48.6
[2021-09-14] MEDS: chlordiazePOXIDE HCL 25 MG CAPSULE PO SCH ×2 (18:15→22:26)
[2021-09-14] MEDS: hydrOXYzine PAMOATE 25 MG CAPSULE (FP) PO SCH ×2 (18:15→22:26)
[2021-09-14] MEDS: PRENATAL VITAMINS W/ FOLIC ACID TABLET (FP) PO SCH (18:15)
[2021-09-14] MEDS: ASPIRIN 81 MG CHEWABLE TABLETS PO SCH (18:15)
[2021-09-14] MEDS: INSULIN SLIDING SCALE (NOVOLOG) 1 VIAL SQ SCH (18:23)
[2021-09-14] MEDS: MELATONIN 5 MG TABLETS PO SCH (22:26)
[2021-09-14] MEDS: ATORVASTATIN CA 20 MG TABLET (FP) PO SCH (22:26)
[2021-09-14] MEDS: THIAMINE HCL 100 MG TABLET (FP) PO SCH (22:26)
[2021-09-15] MEDS: hydrOXYzine PAMOATE 25 MG CAPSULE (FP) PO SCH ×2 (06:34→10:34)
[2021-09-15] MEDS: chlordiazePOXIDE HCL 25 MG CAPSULE PO SCH ×4 (06:35→22:28)
[2021-09-15] MEDS: INSULIN SLIDING SCALE (NOVOLOG) 1 VIAL SQ SCH ×2 (06:50→18:30)
[2021-09-15] MEDS: metFORMIN HCL 500 MG TABLET (FP) PO SCH ×2 (06:51→18:27)
[2021-09-15] MEDS: ASPIRIN 81 MG CHEWABLE TABLETS PO SCH (10:32)
[2021-09-15] MEDS: PRENATAL VITAMINS W/ FOLIC ACID TABLET (FP) PO SCH (10:35)
[2021-09-15 11:17] LABS: HEMATOCRIT 36.8 % (35.4-49); HEMOGLOBIN 12.3 GM/dL (11.7-16.9); MCH 29.5 pg (25.7-33.7); MCHC 33.6 g/dl (32.0-35.9); MEAN PLT VOLUME 8.1 fl (7.5-11.1); PLATELET COUNT 260 10^3/uL (134-434); RBC 4.18 M/mm3 (4.00-5.60); RDW 14.7 % (11.9-15.9)
[2021-09-15 11:26] LABS: CALCIUM 8.7 mg/dL (8.5-10.1)
[2021-09-15 11:27] LABS: ALBUMIN 3.3 g/dl (3.4-5.0); BLOOD UREA NITROGEN 11.4 mg/dL (7-18)
[2021-09-15 11:30] LABS: CREATININE 0.7 mg/dL (0.55-1.3)
[2021-09-15 11:31] LABS: BILIRUBIN,TOTAL 0.7 mg/dL (0.2-1); TOT PROT 6.2 g/dl (6.4-8.2)
[2021-09-15] MEDS ORDERED: hydrOXYzine PAMOATE 25 MG CAPSULE (FP) PO PRN (11:41)
[2021-09-15] MEDS ORDERED: PNEUMOC 13-VAL CONJ-DIP CRM/PF 0.5 ML DISP.SYRIN IM ONE (12:00)
[2021-09-15] MEDS ORDERED: FLU VACC QS2021-22(6MOS UP)/PF 60 MCG/0.5 ML SYRINGE IM ONE (12:00)
[2021-09-15] MEDS ORDERED: PNEUMOCOCCAL 23 VACCINE 0.5 ML VIAL IM ONE (12:00)
[2021-09-15] MEDS: THIAMINE HCL 100 MG TABLET (FP) PO SCH (22:28)
[2021-09-15] MEDS: MELATONIN 5 MG TABLETS PO SCH (22:28)
[2021-09-15] MEDS: ATORVASTATIN CA 20 MG TABLET (FP) PO SCH (22:28)
[2021-09-16] MEDS: chlordiazePOXIDE HCL 25 MG CAPSULE PO SCH ×2 (05:29→11:01)
[2021-09-16 06:06] LABS: SARS-CoV-2 NAA Not Detected (Not Detected)
[2021-09-16] MEDS: metFORMIN HCL 500 MG TABLET (FP) PO SCH (07:12)
[2021-09-16] MEDS: INSULIN SLIDING SCALE (NOVOLOG) 1 VIAL SQ SCH (07:30)
[2021-09-16] MEDS: ASPIRIN 81 MG CHEWABLE TABLETS PO SCH (11:00)
[2021-09-16] MEDS: PRENATAL VITAMINS W/ FOLIC ACID TABLET (FP) PO SCH (11:00)
[2021-09-16 13:17] VITALS: BP 146/88; PULSE 81; TEMP 97.1
[2021-09-17] MEDS ORDERED: chlordiazePOXIDE HCL 10 MG CAPSULE PO PRN
[2021-09-17] MEDS ORDERED: chlordiazePOXIDE HCL 10 MG CAPSULE PO SCH (05:00)
[2021-09-18] MEDS ORDERED: chlordiazePOXIDE HCL 10 MG CAPSULE PO SCH (05:00)
[2021-09-19] MEDS ORDERED: chlordiazePOXIDE HCL 10 MG CAPSULE PO ONE (05:00)
== END 2021-09-16 16:11 | disposition left against medical advice (07) | DRG 770 ==
LOC: YASAS 13:24 → Y3N 16:46
PROVIDERS: ADMIT Allergy & Immunology; ATTEND Allergy & Immunology
PROC: HZ2ZZZZ Detoxification Services for Substance Abuse Treatment (ICD-10-PCS; principal; 2021-09-14)
DX: F10.230 Alcohol dependence with withdrawal, uncomplicated (principal); F17.210 Nicotine dependence, cigarettes, uncomplicated; F25.9 Schizoaffective disorder, unspecified; F19.24 Other psychoactive substance dependence with psychoactive substance-induced mood disorder; I10 Essential (primary) hypertension; E11.9 Type 2 diabetes mellitus without complications; E78.5 Hyperlipidemia, unspecified; I25.10 Atherosclerotic heart disease of native coronary artery without angina pectoris; M17.0 Bilateral primary osteoarthritis of knee; J45.909 Unspecified asthma, uncomplicated; Z91.018 Allergy to other foods; Z79.84 Long term (current) use of oral hypoglycemic drugs; Z91.19 Patient's noncompliance with other medical treatment and regimen; Z56.0 Unemployment, unspecified; Z59.00 Homelessness unspecified
CPT/HCPCS: 36415; 80053; 82962; 85027; 86780; 93005; 93010; C9803-CS; U0003; U0005

== ENCOUNTER 2021-09-15 15:54 | Emergency (ER) | payer OTHER ==
[2021-09-15 16:05] VITALS: BP 139/91; PULSE 86; TEMP 97.9; BMI 40.3
[2021-09-15] MEDS ORDERED: ARIPiprazole 2 MG TABLET PO SCH (22:00)
[2021-09-16] MEDS ORDERED: SERTRALINE HCL 50 MG TABLET (FP) PO SCH (10:00)
== END 2021-09-15 17:56 | disposition home or self-care (01) ==
LOC: JERFT 15:54
DX: S60.455A Superficial foreign body of left ring finger, initial encounter (principal); W49.04XA Ring or other jewelry causing external constriction, initial encounter
CPT/HCPCS: 99283-25

== ENCOUNTER 2022-01-01 11:45 | Inpatient (IN) | payer OTHER ==
[2022-01-01 12:24] VITALS: BMI 33.2
[2022-01-01] MEDS ORDERED: ONDANSETRON *ODT* 4 MG TABLET SL PRN (12:30)
[2022-01-01] MEDS ORDERED: BENZOCAINE/MENTHOL (CHLORASEPTIC ) LOZENGE MM PRN (12:30)
[2022-01-01] MEDS ORDERED: LORazepam 2 MG TABLET PO ONE (12:30)
[2022-01-01] MEDS ORDERED: MAGNESIUM CITRATE 300 ML BOTTLE PO PRN (12:30)
[2022-01-01] MEDS ORDERED: IBUPROFEN 400 MG TABLET (FP) PO PRN (12:30)
[2022-01-01] MEDS ORDERED: MAGNESIUM HYDROX 2400MG/30ML ORAL SUSPENSION 30 ML CUP PO PRN (12:30)
[2022-01-01] MEDS ORDERED: IBUPROFEN 600 MG TABLET (FP) PO PRN (12:30)
[2022-01-01] MEDS ORDERED: DICYCLOMINE HCL 10 MG CAPSULE PO PRN (12:30)
[2022-01-01] MEDS ORDERED: LOPERAMIDE HCL 2 MG CAPSULE PO PRN (12:30)
[2022-01-01] MEDS ORDERED: NICOTINE 10 MG CARTRIDGE (INHALER) IH PRN (12:30)
[2022-01-01] MEDS ORDERED: BISMUTH SUBSALICYLATE 262 MG/15 ML BTL PO PRN (12:30)
[2022-01-01] MEDS ORDERED: LORazepam 1 MG TABLET PO PRN (12:30)
[2022-01-01] MEDS ORDERED: MAG HYDROX/AL HYDROX/SIMETH 30 ML UNIT-DOSE CUP PO PRN (12:30)
[2022-01-01] MEDS ORDERED: ACETAMINOPHEN 325 MG TABLET (FP) PO PRN ×2 (12:30)
[2022-01-01] MEDS ORDERED: ALBUTEROL SO4 HFA INHALER IH PRN (12:43)
[2022-01-01] MEDS: hydrOXYzine PAMOATE 25 MG CAPSULE (FP) PO SCH ×3 (13:50→22:26)
[2022-01-01] MEDS: PRENATAL VITAMINS W/ FOLIC ACID TABLET (FP) PO SCH (13:51)
[2022-01-01] MEDS: NICOTINE 21 MG/24 HOURS TOPICAL PATCH TD SCH (13:51)
[2022-01-01] MEDS: LORazepam 2 MG TABLET PO SCH ×2 (17:33→22:26)
[2022-01-01] MEDS: metFORMIN HCL 500 MG TABLET (FP) PO SCH (17:33)
[2022-01-01] MEDS ORDERED: risperiDONE 1 MG TABLET PO SCH (22:00)
[2022-01-01] MEDS: ATORVASTATIN CA 20 MG TABLET (FP) PO SCH (22:26)
[2022-01-01] MEDS: THIAMINE HCL 100 MG TABLET (FP) PO SCH (22:26)
[2022-01-01] MEDS: MELATONIN 5 MG TABLETS PO SCH (22:27)
[2022-01-01] MEDS: ARIPiprazole 2 MG TABLET PO SCH (22:27)
[2022-01-02] MEDS: hydrOXYzine PAMOATE 25 MG CAPSULE (FP) PO SCH ×5 (06:10→22:49)
[2022-01-02] MEDS: metFORMIN HCL 500 MG TABLET (FP) PO SCH ×2 (06:10→17:17)
[2022-01-02] MEDS: LORazepam 2 MG TABLET PO SCH ×4 (06:11→22:50)
[2022-01-02] MEDS: NAPROXEN 500 MG TABLET PO SCH (10:13)
[2022-01-02] MEDS: METHOCARBAMOL 500 MG TABLET PO PRN (10:13)
[2022-01-02] MEDS: LISINOPRIL 5 MG TABLET PO SCH (10:13)
[2022-01-02] MEDS: SERTRALINE HCL 50 MG TABLET (FP) PO SCH (10:13)
[2022-01-02] MEDS: ASPIRIN 81 MG CHEWABLE TABLETS PO SCH (10:13)
[2022-01-02] MEDS: PANTOPRAZOLE 40 MG TABLET PO SCH (10:13)
[2022-01-02] MEDS: PRENATAL VITAMINS W/ FOLIC ACID TABLET (FP) PO SCH (10:13)
[2022-01-02] MEDS: NICOTINE 21 MG/24 HOURS TOPICAL PATCH TD SCH (10:14)
[2022-01-02 12:34] LABS: HEMATOCRIT 39.1 % (35.4-49); MCH 30.4 pg (25.7-33.7); MCHC 33.3 g/dl (32.0-35.9); MEAN CELL VOLUME 91.3 fl (80-96); MEAN PLT VOLUME 8.1 fl (7.5-11.1); PLATELET COUNT 266 10^3/uL (134-434); RBC 4.28 M/mm3 (4.00-5.60); RDW 15.4 % (11.9-15.9); WHITE BLOOD COUNT 6.2 K/mm3 (4.0-10.0)
[2022-01-02 12:44] LABS: BLOOD UREA NITROGEN 18.4 mg/dL (7-18); CALCIUM 9.3 mg/dL (8.5-10.1)
[2022-01-02 12:45] LABS: ALBUMIN 3.5 g/dl (3.4-5.0)
[2022-01-02 12:47] LABS: BILIRUBIN,TOTAL 0.4 mg/dL (0.2-1); CREATININE 0.7 mg/dL (0.55-1.3); TOT PROT 6.7 g/dl (6.4-8.2)
[2022-01-02] MEDS: ARIPiprazole 2 MG TABLET PO SCH (22:49)
[2022-01-02] MEDS: THIAMINE HCL 100 MG TABLET (FP) PO SCH (22:49)
[2022-01-02] MEDS: ATORVASTATIN CA 20 MG TABLET (FP) PO SCH (22:49)
[2022-01-02] MEDS: MELATONIN 5 MG TABLETS PO SCH (22:50)
[2022-01-03] MEDS: LORazepam 1 MG TABLET PO SCH ×4 (06:11→22:33)
[2022-01-03] MEDS: hydrOXYzine PAMOATE 25 MG CAPSULE (FP) PO SCH ×5 (06:11→22:33)
[2022-01-03] MEDS: metFORMIN HCL 500 MG TABLET (FP) PO SCH ×2 (06:12→17:49)
[2022-01-03] MEDS: NAPROXEN 500 MG TABLET PO SCH (10:51)
[2022-01-03] MEDS: PANTOPRAZOLE 40 MG TABLET PO SCH (10:51)
[2022-01-03] MEDS: SERTRALINE HCL 50 MG TABLET (FP) PO SCH (10:51)
[2022-01-03] MEDS: LISINOPRIL 5 MG TABLET PO SCH (10:51)
[2022-01-03] MEDS: METHOCARBAMOL 500 MG TABLET PO PRN (10:51)
[2022-01-03] MEDS: ASPIRIN 81 MG CHEWABLE TABLETS PO SCH (10:51)
[2022-01-03] MEDS: NICOTINE 21 MG/24 HOURS TOPICAL PATCH TD SCH (10:51)
[2022-01-03] MEDS: PRENATAL VITAMINS W/ FOLIC ACID TABLET (FP) PO SCH (10:51)
[2022-01-03] MEDS: THIAMINE HCL 100 MG TABLET (FP) PO SCH (22:33)
[2022-01-03] MEDS: MELATONIN 5 MG TABLETS PO SCH (22:34)
[2022-01-03] MEDS: ATORVASTATIN CA 20 MG TABLET (FP) PO SCH (22:34)
[2022-01-03] MEDS: ARIPiprazole 2 MG TABLET PO SCH (22:34)
[2022-01-04] MEDS ORDERED: LORazepam 0.5 MG TABLET PO PRN
[2022-01-04] MEDS: LORazepam 0.5 MG TABLET PO SCH ×4 (05:38→22:40)
[2022-01-04] MEDS: hydrOXYzine PAMOATE 25 MG CAPSULE (FP) PO SCH ×5 (05:38→22:39)
[2022-01-04] MEDS: metFORMIN HCL 500 MG TABLET (FP) PO SCH ×2 (06:18→17:33)
[2022-01-04] MEDS: PRENATAL VITAMINS W/ FOLIC ACID TABLET (FP) PO SCH (10:34)
[2022-01-04] MEDS: SERTRALINE HCL 50 MG TABLET (FP) PO SCH (10:34)
[2022-01-04] MEDS: NAPROXEN 500 MG TABLET PO SCH (10:34)
[2022-01-04] MEDS: PANTOPRAZOLE 40 MG TABLET PO SCH (10:34)
[2022-01-04] MEDS: ASPIRIN 81 MG CHEWABLE TABLETS PO SCH (10:34)
[2022-01-04] MEDS: LISINOPRIL 5 MG TABLET PO SCH (10:34)
[2022-01-04] MEDS: NICOTINE 21 MG/24 HOURS TOPICAL PATCH TD SCH (10:35)
[2022-01-04] MEDS: ATORVASTATIN CA 20 MG TABLET (FP) PO SCH (22:39)
[2022-01-04] MEDS: MELATONIN 5 MG TABLETS PO SCH (22:39)
[2022-01-04] MEDS: THIAMINE HCL 100 MG TABLET (FP) PO SCH (22:39)
[2022-01-04] MEDS: ARIPiprazole 2 MG TABLET PO SCH (22:40)
[2022-01-05] MEDS ORDERED: LORazepam 0.5 MG TABLET PO ONE (05:00)
[2022-01-05] MEDS: hydrOXYzine PAMOATE 25 MG CAPSULE (FP) PO SCH ×2 (05:49→09:27)
[2022-01-05] MEDS: metFORMIN HCL 500 MG TABLET (FP) PO SCH (08:06)
[2022-01-05] MEDS: NICOTINE 21 MG/24 HOURS TOPICAL PATCH TD SCH (09:27)
[2022-01-05] MEDS: ASPIRIN 81 MG CHEWABLE TABLETS PO SCH (09:27)
[2022-01-05] MEDS: PRENATAL VITAMINS W/ FOLIC ACID TABLET (FP) PO SCH (09:27)
[2022-01-05] MEDS: PANTOPRAZOLE 40 MG TABLET PO SCH (09:27)
[2022-01-05] MEDS: LISINOPRIL 5 MG TABLET PO SCH (09:27)
[2022-01-05] MEDS: NAPROXEN 500 MG TABLET PO SCH (09:27)
[2022-01-05] MEDS: SERTRALINE HCL 50 MG TABLET (FP) PO SCH (09:27)
[2022-01-05 09:31] VITALS: BP 134/86; PULSE 94; TEMP 97.3
== END 2022-01-05 09:34 | disposition home or self-care (01) | DRG 774 ==
LOC: YASAS 11:45 → Y6N 12:56
PROVIDERS: ADMIT Allergy & Immunology; ATTEND Surgery
PROC: HZ2ZZZZ Detoxification Services for Substance Abuse Treatment (ICD-10-PCS; principal; 2022-01-01)
DX: F10.230 Alcohol dependence with withdrawal, uncomplicated (principal); F14.20 Cocaine dependence, uncomplicated; F17.210 Nicotine dependence, cigarettes, uncomplicated; F25.9 Schizoaffective disorder, unspecified; F31.9 Bipolar disorder, unspecified; F19.24 Other psychoactive substance dependence with psychoactive substance-induced mood disorder; G47.00 Insomnia, unspecified; E78.2 Mixed hyperlipidemia; I10 Essential (primary) hypertension; J45.20 Mild intermittent asthma, uncomplicated; E11.9 Type 2 diabetes mellitus without complications; Z79.84 Long term (current) use of oral hypoglycemic drugs; B18.2 Chronic viral hepatitis C; M17.0 Bilateral primary osteoarthritis of knee; Z91.014 Allergy to mammalian meats; Z99.89 Dependence on other enabling machines and devices; E66.9 Obesity, unspecified; Z68.33 Body mass index [BMI] 33.0-33.9, adult
CPT/HCPCS: 36415; 80053; 82962; 85027; 86780; C9803-CS; U0003; U0005

== ENCOUNTER 2022-03-10 21:49 | Inpatient (IN) | payer OTHER ==
[2022-03-10] MEDS ORDERED: BENZOCAINE/MENTHOL (CHLORASEPTIC ) LOZENGE MM PRN (22:20)
[2022-03-10] MEDS ORDERED: NICOTINE POLACRILEX 2 MG GUM BUC PRN (22:20)
[2022-03-10] MEDS ORDERED: MAG HYDROX/AL HYDROX/SIMETH 30 ML UNIT-DOSE CUP PO PRN (22:20)
[2022-03-10] MEDS ORDERED: MAGNESIUM HYDROX 2400MG/30ML ORAL SUSPENSION 30 ML CUP PO PRN (22:20)
[2022-03-10] MEDS ORDERED: NALOXONE HCL (KLOXXADO) 8 MG SPRAY NS PRN (22:20)
[2022-03-10] MEDS ORDERED: DICYCLOMINE HCL 10 MG CAPSULE PO PRN (22:20)
[2022-03-10] MEDS ORDERED: guaiFENesin 200 MG/10 ML 10 ML UNIT-DOSE CUPS PO PRN (22:20)
[2022-03-10] MEDS ORDERED: P-EPHED 60MG/TRIPROLIDI 2.5MG TABLET PO PRN (22:20)
[2022-03-10] MEDS ORDERED: MAGNESIUM CITRATE 300 ML BOTTLE PO PRN (22:20)
[2022-03-10] MEDS ORDERED: LOPERAMIDE HCL 2 MG CAPSULE PO PRN (22:20)
[2022-03-10] MEDS ORDERED: BISMUTH SUBSALICYLATE 524 MG/30 ML PO PRN (22:20)
[2022-03-10] MEDS ORDERED: IBUPROFEN 400 MG TABLET (FP) PO PRN (22:20)
[2022-03-10] MEDS ORDERED: ONDANSETRON *ODT* 4 MG TABLET SL PRN (22:20)
[2022-03-10] MEDS ORDERED: METHOCARBAMOL 500 MG TABLET PO PRN (22:20)
[2022-03-10] MEDS ORDERED: hydrOXYzine PAMOATE 25 MG CAPSULE (FP) PO PRN (22:20)
[2022-03-10] MEDS ORDERED: ACETAMINOPHEN 325 MG TABLET (FP) PO PRN ×2 (22:20)
[2022-03-10] MEDS ORDERED: IBUPROFEN 600 MG TABLET (FP) PO PRN (22:20)
[2022-03-10 22:28] VITALS: BMI 32.1
[2022-03-10] MEDS ORDERED: ALBUTEROL SO4 HFA INHALER IH PRN (22:35)
[2022-03-11] MEDS: metFORMIN HCL 500 MG TABLET (FP) PO SCH ×2 (06:11→17:31)
[2022-03-11] MEDS ORDERED: PRENATAL VITAMINS W/ FOLIC ACID TABLET (FP) PO SCH (10:00)
[2022-03-11] MEDS ORDERED: LISINOPRIL 5 MG TABLET PO SCH (10:00)
[2022-03-11] MEDS ORDERED: NICOTINE 14 MG/24 HOURS TOPICAL PATCH TD SCH (10:00)
[2022-03-11] MEDS ORDERED: ASPIRIN 81 MG CHEWABLE TABLETS PO SCH (10:00)
[2022-03-11 12:46] LABS: HEMATOCRIT 38.6 % (35.4-49); HEMOGLOBIN 12.6 GM/dL (11.7-16.9); MCH 29.8 pg (25.7-33.7); MCHC 32.7 g/dl (32.0-35.9); MEAN PLT VOLUME 8.1 fl (7.5-11.1); PLATELET COUNT 304 10^3/uL (134-434); RBC 4.24 M/mm3 (4.00-5.60); RDW 14.8 % (11.9-15.9); WHITE BLOOD COUNT 5.6 K/mm3 (4.0-10.0)
[2022-03-11 13:02] LABS: ALBUMIN 3.3 g/dl (3.4-5.0); BLOOD UREA NITROGEN 15.8 mg/dL (7-18); CALCIUM 9.3 mg/dL (8.5-10.1)
[2022-03-11 13:05] LABS: CREATININE 0.9 mg/dL (0.55-1.3)
[2022-03-11 13:07] LABS: BILIRUBIN,TOTAL 0.2 mg/dL (0.2-1); TOT PROT 6.4 g/dl (6.4-8.2)
[2022-03-11 13:46] LABS: HIV INTERPRETATION NEGATIVE (NEGATIVE)
[2022-03-11] MEDS ORDERED: levETIRAcetam 250 MG TABLET PO SCH (17:45)
[2022-03-11] MEDS ORDERED: levETIRAcetam 500 MG TABLET (FP) PO SCH ×2 (17:46→18:00)
[2022-03-11] MEDS ORDERED: THIAMINE HCL 100 MG TABLET (FP) PO SCH (22:00)
[2022-03-11] MEDS ORDERED: MELATONIN 5 MG TABLETS PO SCH (22:00)
[2022-03-11] MEDS ORDERED: ATORVASTATIN CA 20 MG TABLET (FP) PO SCH (22:00)
[2022-03-12] MEDS: metFORMIN HCL 500 MG TABLET (FP) PO SCH (06:12)
[2022-03-12 06:15] VITALS: RESP 18
[2022-03-12 09:10] VITALS: BP 142/81; PULSE 83; TEMP 97.7
== END 2022-03-12 09:00 | disposition home or self-care (01) | DRG 774 ==
LOC: YASAS 21:49 → Y3N 23:01 → UNDOADMIN 23:01
PROVIDERS: ADMIT Allergy & Immunology; ATTEND Surgery
PROC: HZ2ZZZZ Detoxification Services for Substance Abuse Treatment (ICD-10-PCS; principal; 2022-03-10)
DX: F10.230 Alcohol dependence with withdrawal, uncomplicated (principal); F14.20 Cocaine dependence, uncomplicated; F17.210 Nicotine dependence, cigarettes, uncomplicated; F19.24 Other psychoactive substance dependence with psychoactive substance-induced mood disorder; F20.9 Schizophrenia, unspecified; F31.9 Bipolar disorder, unspecified; I10 Essential (primary) hypertension; G40.909 Epilepsy, unspecified, not intractable, without status epilepticus; E78.5 Hyperlipidemia, unspecified; J45.20 Mild intermittent asthma, uncomplicated; M17.0 Bilateral primary osteoarthritis of knee; E11.9 Type 2 diabetes mellitus without complications; Z79.84 Long term (current) use of oral hypoglycemic drugs; Z91.018 Allergy to other foods; Z91.014 Allergy to mammalian meats
CPT/HCPCS: 36415; 80053; 82962; 85027; 86780; 87389; 87811; C9803-CS; U0003; U0005

== ENCOUNTER 2022-03-27 22:05 | Inpatient (IN) | payer OTHER ==
[2022-03-27 22:36] VITALS: BMI 32.3
[2022-03-28] MEDS ORDERED: MAGNESIUM HYDROX 2400MG/30ML ORAL SUSPENSION 30 ML CUP PO PRN (00:13)
[2022-03-28] MEDS ORDERED: ACETAMINOPHEN 325 MG TABLET (FP) PO PRN ×2 (00:13)
[2022-03-28] MEDS ORDERED: BISMUTH SUBSALICYLATE 524 MG/30 ML PO PRN (00:13)
[2022-03-28] MEDS ORDERED: MAG HYDROX/AL HYDROX/SIMETH 30 ML UNIT-DOSE CUP PO PRN (00:13)
[2022-03-28] MEDS ORDERED: BENZOCAINE/MENTHOL (CHLORASEPTIC ) LOZENGE MM PRN (00:13)
[2022-03-28] MEDS ORDERED: DICYCLOMINE HCL 10 MG CAPSULE PO PRN (00:13)
[2022-03-28] MEDS ORDERED: LOPERAMIDE HCL 2 MG CAPSULE PO PRN (00:13)
[2022-03-28] MEDS ORDERED: ONDANSETRON *ODT* 4 MG TABLET SL PRN (00:13)
[2022-03-28] MEDS ORDERED: MAGNESIUM CITRATE 300 ML BOTTLE PO PRN (00:13)
[2022-03-28] MEDS ORDERED: NALOXONE HCL (KLOXXADO) 8 MG SPRAY NS PRN (00:13)
[2022-03-28] MEDS ORDERED: NICOTINE POLACRILEX 2 MG GUM BUC PRN (00:13)
[2022-03-28] MEDS ORDERED: IBUPROFEN 400 MG TABLET (FP) PO PRN (00:13)
[2022-03-28] MEDS: PRENATAL VITAMINS W/ FOLIC ACID TABLET (FP) PO SCH (10:36)
[2022-03-28] MEDS: NICOTINE 14 MG/24 HOURS TOPICAL PATCH TD SCH (10:36)
[2022-03-28] MEDS: IBUPROFEN 600 MG TABLET (FP) PO PRN ×2 (10:39→21:38)
[2022-03-28] MEDS: METHOCARBAMOL 500 MG TABLET PO PRN ×2 (10:39→21:39)
[2022-03-28] MEDS ORDERED: ALBUTEROL SO4 HFA INHALER IH PRN (15:48)
[2022-03-28] MEDS: LISINOPRIL 10 MG TABLET PO SCH (15:50)
[2022-03-28] MEDS: INSULIN SLIDING SCALE (NOVOLOG) 1 VIAL SQ SCH (17:16)
[2022-03-28] MEDS ORDERED: THIAMINE HCL 100 MG TABLET (FP) PO SCH (22:00)
[2022-03-28] MEDS ORDERED: risperiDONE 1 MG TABLET PO SCH (22:00)
[2022-03-28] MEDS ORDERED: MELATONIN 5 MG TABLETS PO SCH (22:00)
[2022-03-28] MEDS: levETIRAcetam 500 MG TABLET (FP) PO SCH (22:19)
[2022-03-29] MEDS: INSULIN SLIDING SCALE (NOVOLOG) 1 VIAL SQ SCH ×2 (06:04→11:35)
[2022-03-29] MEDS: LISINOPRIL 10 MG TABLET PO SCH (10:19)
[2022-03-29] MEDS: levETIRAcetam 500 MG TABLET (FP) PO SCH (10:19)
[2022-03-29] MEDS: PRENATAL VITAMINS W/ FOLIC ACID TABLET (FP) PO SCH (10:19)
[2022-03-29] MEDS: NICOTINE 14 MG/24 HOURS TOPICAL PATCH TD SCH (10:20)
[2022-03-29 10:46] LABS: BLOOD UREA NITROGEN 16.5 mg/dL (7-18); CALCIUM 8.8 mg/dL (8.5-10.1)
[2022-03-29 10:50] LABS: CREATININE 0.8 mg/dL (0.55-1.3)
[2022-03-29 10:51] LABS: BILIRUBIN,TOTAL 0.2 mg/dL (0.2-1); TOT PROT 5.8 g/dl (6.4-8.2)
[2022-03-29 10:53] LABS: HEMATOCRIT 34.9 % (35.4-49); HEMOGLOBIN 11.5 GM/dL (11.7-16.9); MCH 29.8 pg (25.7-33.7); MCHC 32.8 g/dl (32.0-35.9); MEAN CELL VOLUME 90.8 fl (80-96); MEAN PLT VOLUME 8.1 fl (7.5-11.1); PLATELET COUNT 301 10^3/uL (134-434); RBC 3.85 M/mm3 (4.00-5.60); RDW 14.4 % (11.9-15.9); WHITE BLOOD COUNT 4.9 K/mm3 (4.0-10.0)
[2022-03-29 13:18] VITALS: BP 102/55; PULSE 77; RESP 17; TEMP 98.2
== END 2022-03-29 14:16 | disposition other institution (70) | DRG 774 ==
LOC: YASAS 22:05 → Y3N 03-28 00:46
PROVIDERS: ADMIT Surgery; ATTEND Allergy & Immunology
PROC: HZ2ZZZZ Detoxification Services for Substance Abuse Treatment (ICD-10-PCS; principal; 2022-03-28)
DX: F10.230 Alcohol dependence with withdrawal, uncomplicated (principal); F14.20 Cocaine dependence, uncomplicated; F17.210 Nicotine dependence, cigarettes, uncomplicated; F25.9 Schizoaffective disorder, unspecified; F32.A Depression, unspecified; E78.5 Hyperlipidemia, unspecified; I10 Essential (primary) hypertension; E11.9 Type 2 diabetes mellitus without complications; Z79.84 Long term (current) use of oral hypoglycemic drugs; M17.0 Bilateral primary osteoarthritis of knee; M54.50 Low back pain, unspecified; G89.29 Other chronic pain; E66.9 Obesity, unspecified; Z68.32 Body mass index [BMI] 32.0-32.9, adult; Z56.0 Unemployment, unspecified; Z59.00 Homelessness unspecified
CPT/HCPCS: 36415; 80053; 82962; 85027; 86780; C9803-CS; J2794; U0003; U0005

== ENCOUNTER 2022-04-28 09:25 | Inpatient (IN) | payer OTHER ==
[2022-04-28 10:03] VITALS: BMI 32.2
[2022-04-28] MEDS ORDERED: MAGNESIUM HYDROX 2400MG/30ML ORAL SUSPENSION 30 ML CUP PO PRN (10:50)
[2022-04-28] MEDS ORDERED: NALOXONE HCL (KLOXXADO) 8 MG SPRAY NS PRN (10:50)
[2022-04-28] MEDS ORDERED: IBUPROFEN 400 MG TABLET (FP) PO PRN (10:50)
[2022-04-28] MEDS ORDERED: DICYCLOMINE HCL 10 MG CAPSULE PO PRN (10:50)
[2022-04-28] MEDS ORDERED: NICOTINE 10 MG CARTRIDGE (INHALER) IH PRN (10:50)
[2022-04-28] MEDS ORDERED: IBUPROFEN 600 MG TABLET (FP) PO PRN (10:50)
[2022-04-28] MEDS ORDERED: LOPERAMIDE HCL 2 MG CAPSULE PO PRN (10:50)
[2022-04-28] MEDS ORDERED: ACETAMINOPHEN 325 MG TABLET (FP) PO PRN ×2 (10:50)
[2022-04-28] MEDS ORDERED: MAG HYDROX/AL HYDROX/SIMETH 30 ML UNIT-DOSE CUP PO PRN (10:50)
[2022-04-28] MEDS ORDERED: NICOTINE POLACRILEX 2 MG GUM BUC PRN (10:50)
[2022-04-28] MEDS ORDERED: MAGNESIUM CITRATE 300 ML BOTTLE PO PRN (10:50)
[2022-04-28] MEDS ORDERED: BISMUTH SUBSALICYLATE 524 MG/30 ML PO PRN (10:50)
[2022-04-28] MEDS ORDERED: BENZOCAINE/MENTHOL (CHLORASEPTIC ) LOZENGE MM PRN (10:50)
[2022-04-28] MEDS ORDERED: ONDANSETRON *ODT* 4 MG TABLET SL PRN (10:50)
[2022-04-28] MEDS ORDERED: METHOCARBAMOL 500 MG TABLET PO PRN (10:50)
[2022-04-28] MEDS ORDERED: ALBUTEROL SO4 HFA INHALER IH PRN (11:04)
[2022-04-28] MEDS ORDERED: FOLIC ACID 1 MG TABLET (FP) PO SCH (11:15)
[2022-04-28] MEDS ORDERED: PATIENT'S OWN MEDICATION (NON-FORMULARY) (Multivitamin [Multivitamin] 1 EACH Tablet) PO SCH (11:15)
[2022-04-28] MEDS: chlordiazePOXIDE HCL 25 MG CAPSULE PO SCH ×3 (11:56→22:42)
[2022-04-28] MEDS ORDERED: FERROUS SO4 325 MG TABLET (FP) PO SCH (12:00)
[2022-04-28] MEDS: PANTOPRAZOLE 40 MG TABLET PO SCH (12:28)
[2022-04-28] MEDS: levETIRAcetam 500 MG TABLET (FP) PO SCH ×2 (12:28→22:42)
[2022-04-28] MEDS: PRENATAL VITAMINS W/ FOLIC ACID TABLET (FP) PO SCH (12:29)
[2022-04-28] MEDS: LISINOPRIL 10 MG TABLET PO SCH (12:29)
[2022-04-28 15:37] LABS: HEMATOCRIT 39.5 % (35.4-49); HEMOGLOBIN 13.3 GM/dL (11.7-16.9); MCH 29.9 pg (25.7-33.7); MCHC 33.5 g/dl (32.0-35.9); MEAN CELL VOLUME 89.1 fl (80-96); MEAN PLT VOLUME 8.1 fl (7.5-11.1); PLATELET COUNT 327 10^3/uL (134-434); RBC 4.44 M/mm3 (4.00-5.60); RDW 14.5 % (11.9-15.9); WHITE BLOOD COUNT 5.5 K/mm3 (4.0-10.0)
[2022-04-28] MEDS: metFORMIN HCL 500 MG TABLET (FP) PO SCH (17:29)
[2022-04-28] MEDS: MELATONIN 5 MG TABLETS PO SCH (22:42)
[2022-04-28] MEDS: ATORVASTATIN CA 20 MG TABLET (FP) PO SCH (22:42)
[2022-04-28] MEDS: THIAMINE HCL 100 MG TABLET (FP) PO SCH (22:42)
[2022-04-29] MEDS: chlordiazePOXIDE HCL 25 MG CAPSULE PO SCH ×4 (05:21→22:27)
[2022-04-29] MEDS: metFORMIN HCL 500 MG TABLET (FP) PO SCH ×2 (07:01→17:46)
[2022-04-29] MEDS: levETIRAcetam 500 MG TABLET (FP) PO SCH ×2 (10:38→22:27)
[2022-04-29] MEDS: PANTOPRAZOLE 40 MG TABLET PO SCH (10:38)
[2022-04-29] MEDS: LISINOPRIL 10 MG TABLET PO SCH (10:38)
[2022-04-29] MEDS: PRENATAL VITAMINS W/ FOLIC ACID TABLET (FP) PO SCH (10:38)
[2022-04-29] MEDS ORDERED: PNEUMOC 20-VAL CONJ-DIP CRM/PF 0.5 ML SYRINGE IM ONE (12:00)
[2022-04-29] MEDS ORDERED: risperiDONE 1 MG TABLET PO SCH (22:00)
[2022-04-29] MEDS: MELATONIN 5 MG TABLETS PO SCH (22:27)
[2022-04-29] MEDS: ATORVASTATIN CA 20 MG TABLET (FP) PO SCH (22:27)
[2022-04-29] MEDS: THIAMINE HCL 100 MG TABLET (FP) PO SCH (22:27)
[2022-04-29 23:59] LABS: ALBUMIN 4.2 g/dl (3.4-5.0); BLOOD UREA NITROGEN 16.1 mg/dL (7-18); CALCIUM 9.8 mg/dL (8.5-10.1)
[2022-04-30 00:02] LABS: CREATININE 0.8 mg/dL (0.55-1.3)
[2022-04-30 00:03] LABS: BILIRUBIN,TOTAL 0.4 mg/dL (0.2-1); TOT PROT 7.6 g/dl (6.4-8.2)
[2022-04-30] MEDS ORDERED: chlordiazePOXIDE HCL 25 MG CAPSULE PO SCH (05:00)
[2022-04-30] MEDS: metFORMIN HCL 500 MG TABLET (FP) PO SCH (07:22)
[2022-04-30 08:40] VITALS: BP 113/71; PULSE 86; RESP 16; TEMP 97.1
[2022-04-30] MEDS: PRENATAL VITAMINS W/ FOLIC ACID TABLET (FP) PO SCH (09:41)
[2022-04-30] MEDS: levETIRAcetam 500 MG TABLET (FP) PO SCH (09:41)
[2022-04-30] MEDS: LISINOPRIL 10 MG TABLET PO SCH (09:41)
[2022-04-30] MEDS: PANTOPRAZOLE 40 MG TABLET PO SCH (09:42)
[2022-04-30] MEDS ORDERED: ASPIRIN 81 MG CHEWABLE TABLETS PO SCH (10:00)
[2022-05-01] MEDS ORDERED: chlordiazePOXIDE HCL 10 MG CAPSULE PO SCH (05:00)
[2022-05-02] MEDS ORDERED: chlordiazePOXIDE HCL 10 MG CAPSULE PO SCH (05:00)
[2022-05-03] MEDS ORDERED: chlordiazePOXIDE HCL 10 MG CAPSULE PO ONE (05:00)
== END 2022-04-30 10:35 | disposition left against medical advice (07) | DRG 770 ==
LOC: YASAS 09:25 → Y3N 11:54
PROVIDERS: ADMIT Allergy & Immunology; ATTEND Surgery
PROC: HZ2ZZZZ Detoxification Services for Substance Abuse Treatment (ICD-10-PCS; principal; 2022-04-28)
DX: F10.230 Alcohol dependence with withdrawal, uncomplicated (principal); F13.20 Sedative, hypnotic or anxiolytic dependence, uncomplicated; F14.20 Cocaine dependence, uncomplicated; F17.210 Nicotine dependence, cigarettes, uncomplicated; F25.9 Schizoaffective disorder, unspecified; F19.282 Other psychoactive substance dependence with psychoactive substance-induced sleep disorder; F19.24 Other psychoactive substance dependence with psychoactive substance-induced mood disorder; E78.2 Mixed hyperlipidemia; E11.9 Type 2 diabetes mellitus without complications; G40.909 Epilepsy, unspecified, not intractable, without status epilepticus; I10 Essential (primary) hypertension; J45.909 Unspecified asthma, uncomplicated; M17.0 Bilateral primary osteoarthritis of knee; Z56.0 Unemployment, unspecified; Z59.00 Homelessness unspecified; Z79.84 Long term (current) use of oral hypoglycemic drugs
CPT/HCPCS: 36415; 80053; 82962; 85027; 86780; 87811; C9803-CS; J2794; U0003; U0005

== ENCOUNTER 2023-01-21 15:57 | Inpatient (IN) | payer OTHER ==
[2023-01-21 17:52] VITALS: BMI 31.9
[2023-01-21] MEDS ORDERED: ONDANSETRON *ODT* 4 MG TABLET SL PRN (19:43)
[2023-01-21] MEDS ORDERED: chlordiazePOXIDE HCL 25 MG CAPSULE PO PRN (19:43)
[2023-01-21] MEDS ORDERED: MAG HYDROX/AL HYDROX/SIMETH 30 ML UNIT-DOSE CUP PO PRN (19:43)
[2023-01-21] MEDS ORDERED: hydrOXYzine PAMOATE 25 MG CAPSULE (FP) PO PRN (19:43)
[2023-01-21] MEDS ORDERED: DICYCLOMINE HCL 10 MG CAPSULE PO PRN (19:43)
[2023-01-21] MEDS ORDERED: METHOCARBAMOL 500 MG TABLET PO PRN (19:43)
[2023-01-21] MEDS ORDERED: BISMUTH SUBSALICYLATE 524 MG/30 ML PO PRN (19:43)
[2023-01-21] MEDS ORDERED: POLYETHYLENE GLYCOL (HEALTHYLAX) 3350 17 GM PACKET PO PRN (19:43)
[2023-01-21] MEDS ORDERED: BENZOCAINE/MENTHOL (CHLORASEPTIC ) LOZENGE MM PRN (19:43)
[2023-01-21] MEDS ORDERED: NALOXONE HCL (KLOXXADO) 8 MG SPRAY NS PRN (19:43)
[2023-01-21] MEDS ORDERED: MAGNESIUM HYDROX 2400MG/30ML ORAL SUSPENSION 30 ML CUP PO PRN (19:43)
[2023-01-21] MEDS ORDERED: ACETAMINOPHEN 325 MG TABLET (FP) PO PRN (19:43)
[2023-01-21] MEDS ORDERED: IBUPROFEN 400 MG TABLET (FP) PO PRN (19:43)
[2023-01-21] MEDS ORDERED: guaiFENesin 600 MG TABLET.ER (FP) PO PRN (19:43)
[2023-01-21] MEDS ORDERED: NALOXONE HCL 0.4 MG/ML VIAL IM PRN (19:43)
[2023-01-21] MEDS ORDERED: IBUPROFEN 600 MG TABLET (FP) PO PRN (19:43)
[2023-01-21] MEDS ORDERED: BENZONATATE 200 MG CAPSULE PO PRN (19:43)
[2023-01-21] MEDS ORDERED: NICOTINE POLACRILEX 2 MG GUM BUC PRN (19:43)
[2023-01-21] MEDS ORDERED: LOPERAMIDE HCL 2 MG CAPSULE PO PRN (19:43)
[2023-01-21] MEDS ORDERED: ALBUTEROL SO4 HFA INHALER IH PRN (19:45)
[2023-01-21] MEDS: ATORVASTATIN CA 20 MG TABLET (FP) PO SCH (21:43)
[2023-01-21] MEDS: levETIRAcetam 500 MG TABLET (FP) PO SCH (21:43)
[2023-01-21] MEDS: MELATONIN 5 MG TABLETS PO SCH (21:44)
[2023-01-21] MEDS: THIAMINE HCL 100 MG TABLET (FP) PO SCH (21:44)
[2023-01-21] MEDS: chlordiazePOXIDE HCL 25 MG CAPSULE PO SCH (23:55)
[2023-01-22] MEDS: chlordiazePOXIDE HCL 25 MG CAPSULE PO SCH ×4 (05:46→22:49)
[2023-01-22] MEDS: metFORMIN HCL 500 MG TABLET (FP) PO SCH ×2 (07:30→17:08)
[2023-01-22] MEDS ORDERED: PATIENT'S OWN MEDICATION (NON-FORMULARY) (Ferrous Sulfate [Iron] 325 MG Tablet) PO SCH (10:00)
[2023-01-22] MEDS ORDERED: PATIENT'S OWN MEDICATION (NON-FORMULARY) (Omeprazole [Omeprazole] 20 MG Tablet.Dr) PO SCH (10:00)
[2023-01-22] MEDS: ASPIRIN 81 MG CHEWABLE TABLETS PO SCH (10:41)
[2023-01-22] MEDS: PRENATAL VITAMINS W/ FOLIC ACID TABLET (FP) PO SCH (10:41)
[2023-01-22] MEDS: NICOTINE 14 MG/24 HOURS TOPICAL PATCH TD SCH (10:41)
[2023-01-22] MEDS: levETIRAcetam 500 MG TABLET (FP) PO SCH ×2 (10:41→22:49)
[2023-01-22] MEDS: FERROUS SO4 325 MG TABLET (FP) PO SCH (10:41)
[2023-01-22] MEDS: LISINOPRIL 5 MG TABLET PO SCH (10:42)
[2023-01-22] MEDS: PANTOPRAZOLE 40 MG TABLET PO SCH (10:42)
[2023-01-22 13:58] LABS: HEMOGLOBIN 12.5 GM/dL (11.7-16.9); MCH 31.1 pg (25.7-33.7); MEAN CELL VOLUME 94.4 fl (80-96); PLATELET COUNT 297 10^3/uL (134-434); RBC 4.02 M/mm3 (4.00-5.60); RDW 14.1 % (11.9-15.9); WHITE BLOOD COUNT 4.4 K/mm3 (4.0-10.0)
[2023-01-22 14:01] LABS: POTASSIUM 4.3 mmol/L (3.5-5.1)
[2023-01-22 14:04] LABS: ALBUMIN 3.1 g/dl (3.4-5.0); BLOOD UREA NITROGEN 7.8 mg/dL (7-18)
[2023-01-22 14:10] LABS: BILIRUBIN,TOTAL 0.2 mg/dL (0.2-1); TOT PROT 5.9 g/dl (6.4-8.2)
[2023-01-22] MEDS: ATORVASTATIN CA 20 MG TABLET (FP) PO SCH (22:48)
[2023-01-22] MEDS: THIAMINE HCL 100 MG TABLET (FP) PO SCH (22:49)
[2023-01-22] MEDS: MELATONIN 5 MG TABLETS PO SCH (22:51)
[2023-01-23] MEDS: chlordiazePOXIDE HCL 25 MG CAPSULE PO SCH ×4 (06:00→22:25)
[2023-01-23] MEDS: metFORMIN HCL 500 MG TABLET (FP) PO SCH ×2 (06:11→17:12)
[2023-01-23] MEDS: PANTOPRAZOLE 40 MG TABLET PO SCH (10:14)
[2023-01-23] MEDS: LISINOPRIL 5 MG TABLET PO SCH (10:14)
[2023-01-23] MEDS: PRENATAL VITAMINS W/ FOLIC ACID TABLET (FP) PO SCH (10:14)
[2023-01-23] MEDS: NICOTINE 14 MG/24 HOURS TOPICAL PATCH TD SCH (10:15)
[2023-01-23] MEDS: ASPIRIN 81 MG CHEWABLE TABLETS PO SCH (10:15)
[2023-01-23] MEDS: levETIRAcetam 500 MG TABLET (FP) PO SCH ×2 (10:15→22:24)
[2023-01-23] MEDS: FERROUS SO4 325 MG TABLET (FP) PO SCH (10:15)
[2023-01-23] MEDS: INSULIN SLIDING SCALE (NOVOLOG) 1 VIAL SQ SCH (16:42)
[2023-01-23 17:19] VITALS: RESP 16
[2023-01-23 21:01] VITALS: TEMP 97.8
[2023-01-23] MEDS: ATORVASTATIN CA 20 MG TABLET (FP) PO SCH (22:24)
[2023-01-23] MEDS: THIAMINE HCL 100 MG TABLET (FP) PO SCH (22:24)
[2023-01-23] MEDS: MELATONIN 5 MG TABLETS PO SCH (22:24)
[2023-01-24] MEDS ORDERED: chlordiazePOXIDE HCL 10 MG CAPSULE PO PRN
[2023-01-24] MEDS ORDERED: chlordiazePOXIDE HCL 10 MG CAPSULE PO SCH (05:00)
[2023-01-24] MEDS: metFORMIN HCL 500 MG TABLET (FP) PO SCH (06:05)
[2023-01-24] MEDS: INSULIN SLIDING SCALE (NOVOLOG) 1 VIAL SQ SCH (06:11)
[2023-01-24 06:53] VITALS: BP 131/76; PULSE 76
[2023-01-25] MEDS ORDERED: chlordiazePOXIDE HCL 10 MG CAPSULE PO SCH (05:00)
[2023-01-26] MEDS ORDERED: chlordiazePOXIDE HCL 10 MG CAPSULE PO ONE (05:00)
== END 2023-01-24 08:35 | disposition left against medical advice (07) | DRG 770 ==
LOC: YASAS 15:57 → Y6N 20:20
PROVIDERS: ADMIT Allergy & Immunology; ATTEND Allergy & Immunology
PROC: HZ2ZZZZ Detoxification Services for Substance Abuse Treatment (ICD-10-PCS; principal; 2023-01-21)
DX: F10.230 Alcohol dependence with withdrawal, uncomplicated (principal); F14.20 Cocaine dependence, uncomplicated; F17.210 Nicotine dependence, cigarettes, uncomplicated; I10 Essential (primary) hypertension; E11.9 Type 2 diabetes mellitus without complications; E78.5 Hyperlipidemia, unspecified; K21.9 Gastro-esophageal reflux disease without esophagitis; J45.20 Mild intermittent asthma, uncomplicated; G40.909 Epilepsy, unspecified, not intractable, without status epilepticus; R01.1 Cardiac murmur, unspecified; M17.0 Bilateral primary osteoarthritis of knee; E66.9 Obesity, unspecified; Z68.31 Body mass index [BMI] 31.0-31.9, adult; Z79.84 Long term (current) use of oral hypoglycemic drugs
CPT/HCPCS: 36415; 80053; 82962; 83036; 85027; 86780; 87635

== ENCOUNTER 2024-04-22 10:22 | Inpatient (IN) | payer OTHER ==
[2024-04-22 11:15] VITALS: BMI 34.8
[2024-04-22] MEDS ORDERED: LOPERAMIDE HCL 2 MG CAPSULE PO PRN (12:29)
[2024-04-22] MEDS ORDERED: METHOCARBAMOL 500 MG TABLET PO PRN (12:29)
[2024-04-22] MEDS ORDERED: BISMUTH SUBSALICYLATE 524 MG/30 ML PO PRN (12:29)
[2024-04-22] MEDS ORDERED: DICYCLOMINE HCL 10 MG CAPSULE PO PRN (12:29)
[2024-04-22] MEDS ORDERED: BENZOCAINE/MENTHOL (CHLORASEPTIC ) LOZENGE MM PRN (12:29)
[2024-04-22] MEDS ORDERED: BENZONATATE 200 MG CAPSULE PO PRN (12:29)
[2024-04-22] MEDS ORDERED: ONDANSETRON *ODT* 4 MG TABLET SL PRN (12:29)
[2024-04-22] MEDS ORDERED: NALOXONE (NARCAN) HCL 4 MG/0.1 ML SPRAY NS PRN (12:29)
[2024-04-22] MEDS ORDERED: NALOXONE (NYS OPIOID OVERDOSE PROGRAM) 4 MG/0.1 ML SPRAY NS PRN (12:29)
[2024-04-22] MEDS ORDERED: MAG HYDROX/AL HYDROX/SIMETH 30 ML UNIT-DOSE CUP PO PRN (12:29)
[2024-04-22] MEDS ORDERED: IBUPROFEN 600 MG TABLET (FP) PO PRN (12:29)
[2024-04-22] MEDS ORDERED: ACETAMINOPHEN 325 MG TABLET (FP) PO PRN (12:29)
[2024-04-22] MEDS ORDERED: MAGNESIUM HYDROX 2400MG/30ML ORAL SUSPENSION 30 ML CUP PO PRN (12:29)
[2024-04-22] MEDS ORDERED: guaiFENesin 600 MG TABLET.ER (FP) PO PRN (12:29)
[2024-04-22] MEDS ORDERED: hydrOXYzine PAMOATE 25 MG CAPSULE (FP) PO PRN (12:29)
[2024-04-22] MEDS ORDERED: IBUPROFEN 400 MG TABLET (FP) PO PRN (12:29)
[2024-04-22] MEDS ORDERED: POLYETHYLENE GLYCOL (HEALTHYLAX) 3350 17 GM PACKET PO PRN (12:29)
[2024-04-22] MEDS ORDERED: ALBUTEROL SO4 HFA INHALER IH PRN (13:00)
[2024-04-22] MEDS ORDERED: chlordiazePOXIDE HCL 25 MG CAPSULE ONE (13:42)
[2024-04-22] MEDS: chlordiazePOXIDE HCL 25 MG CAPSULE PO PRN (13:44)
[2024-04-22] MEDS: metFORMIN HCL 500 MG TABLET (FP) PO SCH (17:35)
[2024-04-22] MEDS: chlordiazePOXIDE HCL 25 MG CAPSULE PO SCH (17:35)
[2024-04-22] MEDS: VITAMINS A AND D TOPICAL OINTMENT TP SCH (18:51)
[2024-04-22 20:01] LABS: URINE APPEARANCE CLEAR; URINE BILIRUBIN NEGATIVE (NEGATIVE); URINE COLOR YELLOW; URINE GLUCOSE (UA) NEGATIVE (NEGATIVE); URINE KETONE NEGATIVE (NEGATIVE); URINE LEUK ESTERASE NEGATIVE (NEGATIVE); URINE NITRITE NEGATIVE (NEGATIVE); URINE PROTEIN NEGATIVE (NEGATIVE)
[2024-04-22] MEDS: levETIRAcetam 500 MG TABLET (FP) PO SCH (22:57)
[2024-04-22] MEDS: THIAMINE 100 MG TABLET PO SCH (22:57)
[2024-04-22] MEDS: ATORVASTATIN CA 20 MG TABLET (FP) PO SCH (22:57)
[2024-04-22] MEDS: FAMOTIDINE 20 MG TABLET PO SCH (22:57)
[2024-04-22] MEDS: MELATONIN 5 MG TABLETS PO SCH (22:57)
[2024-04-23] MEDS: PRENATAL VITAMINS W/ FOLIC ACID TABLET (FP) PO SCH (10:12)
[2024-04-23] MEDS: LISINOPRIL 10 MG TABLET PO SCH (10:12)
[2024-04-23] MEDS: ASPIRIN 81 MG CHEWABLE TABLETS PO SCH (10:12)
[2024-04-23] MEDS: NICOTINE 21 MG/24 HOURS TOPICAL PATCH TD SCH (10:13)
[2024-04-24] MEDS: chlordiazePOXIDE HCL 25 MG CAPSULE PO SCH (05:59)
[2024-04-24] MEDS ORDERED: SERTRALINE HCL 50 MG TABLET (FP) PO SCH (10:00)
[2024-04-24 22:18] VITALS: PULSE 98
[2024-04-25] MEDS ORDERED: chlordiazePOXIDE HCL 10 MG CAPSULE PO PRN
[2024-04-25] MEDS: chlordiazePOXIDE HCL 10 MG CAPSULE PO SCH (05:27)
[2024-04-25 06:05] VITALS: BP 107/77; RESP 17; TEMP 97.8
[2024-04-26] MEDS ORDERED: chlordiazePOXIDE HCL 10 MG CAPSULE PO SCH (05:00)
[2024-04-27] MEDS ORDERED: chlordiazePOXIDE HCL 10 MG CAPSULE PO ONE (05:00)
== END 2024-04-25 06:06 | disposition left against medical advice (07) | DRG 770 ==
LOC: YASAS 10:22 → Y3N 13:21
PROVIDERS: ADMIT Surgery; ATTEND Surgery
PROC: HZ2ZZZZ Detoxification Services for Substance Abuse Treatment (ICD-10-PCS; principal; 2024-04-22)
DX: F10.230 Alcohol dependence with withdrawal, uncomplicated (principal); F17.210 Nicotine dependence, cigarettes, uncomplicated; F25.9 Schizoaffective disorder, unspecified; F19.24 Other psychoactive substance dependence with psychoactive substance-induced mood disorder; I25.10 Atherosclerotic heart disease of native coronary artery without angina pectoris; I10 Essential (primary) hypertension; K21.9 Gastro-esophageal reflux disease without esophagitis; E11.9 Type 2 diabetes mellitus without complications; Z79.84 Long term (current) use of oral hypoglycemic drugs
CPT/HCPCS: 80305; 80307; 81003; 82962; 93005; 93010